=== PATIENT | male | born 1960 | race Caucasian/White ===

== ENCOUNTER → 2023-12-24 | Outpatient (CLI) | payer BC, SELFPAY ==
[2023-12-24 18:14] LABS: Pathologist Comment May follow
[2023-12-24 19:29] LABS: Synovial Fld Mononuclear WBC # 1.364 10^3/ul; Synovial Fld Mononuclear WBC % 80.4 %; Synovial Fld Polynuclear WBC # 0.332 10^3/uL; Synovial Fld Polynuclear WBC % 19.6 %
[2023-12-24 20:24] LABS: AUTO B FLUID DILUENT BKGD CT WBC <0.1 RBC <0.01 (W<.1,R<.01); CRYSTALS, BODY FLUID NO CRYSTALS SEEN; Lymph 21 %; Monocyte /Synovial Fluid 68 %; Neutrophil 11 % (0-25); Source- Body Fluid SYNOVIAL
[2023-12-24 20:25] LABS: Source / Synovial Fluid RIGHT BUTTOCK
[2023-12-24 20:27] LABS: Appearance /Synovial Fluid Cloudy (CLEAR); Color / Synovial Fluid Red (Pale Yellow); RBC /Synovial Fluid 8065 /mm3 (0)
[2023-12-25 14:16] LABS: Pathologist Review Reviewed
== END | disposition home or self-care (01) ==
PROVIDERS: Referring Provider Orthopaedic Surgery; Visit Provider Orthopaedic Surgery
DX: Z96.82 Presence of neurostimulator (principal)
CPT/HCPCS: 87070; 87075; 87205; 89050; 89051; 89060

== ENCOUNTER → 2025-02-15 | Outpatient (CLI) | payer BC, SELFPAY ==
--- NOTE | 2025-02-15 10:05 | RAD_ITS ---
PROCEDURE: CERV SPINE 2 OR 3 VIEWS 02/15/2025 REASON FOR EXAM: R/O FX CERVICAL SPONDYLOSIS TECHNIQUE: CERV SPINE 2 OR 3 VIEWS FINDINGS: No evidence acute fracture or dislocation. Moderate degenerative changes of the spine. Normal alignment. RAD/Cerv Spine 2 or 3 Views IMPRESSION: Spondylosis. Reading Location: [id number]
--- OUTSIDE RECORDS SUMMARY | 2025-02-15 19:03 | XMS RPT_ITS | CCD ---
Author Organization [facility] Care Team Providers Care Travel Agency Manager Name Role Phone UNGERER PRODUCTION SCHEDULER-VENTILATOR SPECIALIST, RADHA Primary Care Physician JESS COY DO Attending Unavailable UNGJAZZYR PRODUCTION SCHEDULER-VENTILATOR SPECIALIST, RADHA Primary Care Annamaria LEE APRN-VENTILATOR SPECIALIST, WESLEY Grider Consulting Unavaila ble JESS COY DO Attending Unavailable JESS COY DO Admitting Unavailable KATHLEEN MCCLELLAND-ROSALBA, RADHA Primary Care Jess Galeas Referring Unavailable Jess Coy Attending Unavailable Unavailable Primary Care Provider Unavailfaustina murillo LEB MERCY B Referring Unavailable LEB, MERCY B Referring Unavailable LEB, MERCY B Referring Unavailable LEB, MERCY B Attending Unavailable LEB, MERCY B Attending Unavailable RADHA DOE ASTRO TECHNICIAN Attending Unavailable RADHA DOE ASTRO TECHNICIAN Primary Care Unavailable RADHA DOE ASTRO TECHNICIAN Admitting Unavailable NAPOLEON MCGHEE DO Consulting Unavailable PROVIDER, UNKNOWN Consulting Unavailable PROVIDER, UNKNOWN Consulting Unavailable SEBASTIAN TRAORE MD Consulting Unavailable SEBASTIAN TRAORE MD Primary Care Unavailable SEBSATIAN TRAORE MD Admitting Unavailable SEBASTIAN TRAORE MD Attending Unavailable PROVIDER, UNKNOWN Consulting Unavailable PROVIDER, UNKNOWN Consulting Unavailable PROVIDER, UNKNOWN Consulting Unavailable RADHA DOE ASTRO TECHNICIAN Attending Unavailable RADHA DOE ASTRO TECHNICIAN Primary Care Unavailable RADHA DOE ASTRO TECHNICIAN Admitting Unavailable JUSTINO SIN Attending Unavailable JUSTINO SIN Primary Care Unavailable JUSTINO SIN Admitting Unavailable Scott MADSEN, Thony Horner Primary Care Provider Allergies Allergy Classification Reported Allergen(s) Allergy Type Date of Onset Reaction(s) Facility (10 sources) varenicline; Translations: [varenicline] Drug Allergy 5 Nausea/vomiting [facility] [place] (8 sources) semaglutide; Translations: [SEMAGLUTIDE] Drug Allergy Nausea/vomiting [facility] Medications Current Medications Medication Drug Class(es) Dates Sig (Normalized) Sig (Original) acetaminophen 500 mg oral tablet (6 sources) take 3 tablets by mouth twice daily acetaminophen (Tylenol Extra Strength) 500 mg tablet Take 3 tablets twice a day by oral route. Active acetaminophen 325 mg / HYDROcodone bitartrate 5 mg oral tablet (8 sources) Opioid Agonist Start: 11-12-2023 End: 11-19-2023 take 1 tablet by mouth every six hours as needed for pain Selden 325- 5 mg oral tablet Dose = 1 tab(s), Oral, q6h, PRN for pain, X 7 day(s), # 28 tab(s), 0 Refill(s), Pharmacy: [facility], Lumbar spondylosis, 180.34, cm, 11/12/23 6:41:00 EDT, Height, 82.27, kg, 11/12/23 6:41:00 EDT, Dosing Weight Start Date: 11/12/23 Stop Date: 11/19/23 Status: Ordered Start: 07-24-2023 take 1 tablet by hi th every six hours as needed for pain acetaminophen-hydrocodone 300 mg-7.5 mg oral tablet Dose = 1 tab(s), Oral, q6h, PRN for pain, # 12 tab(s), 0 Refill(s), 74.55 Start Date: 07/24/23 Status: Ordered End: 02-15-2025 take 1 tablet by mouth every eight hours as needed HYDROcodone-acetaminophen (Selden) 5-325 mg tablet Take 1 tablet by mouth every 8 hours if needed. 02/15/2025 Discontinued (Med List Cleanup) aspirin 81 mg delayed release oral tablet (7 sources) Platelet Aggregation Inhibitor, Nonsteroidal Anti-inflammatory Drug Start: 07-24-2023 aspirin 81 mg ora l delayed release tablet Dose : 81 mg = 1 tab(s), Oral, Daily, 0 Refill(s) Start Date: 07/24/23 Status: Ordered take 1 tablet by mouth once frida y aspirin 325 mg tablet Take 1 tablet (325 mg) by mouth once daily. Active 24 hr buPROPion hydrochloride 150 mg extended release oral tablet (6 sources) Aminoketone Start: 02-15-2025 End: 04-16-2025 take 1 tablet by mouth once daily in the morning buPROPion XL (Wellbutrin XL) 150 mg 24 hr tablet Indications: Major depressive disorder with single episode, in partial remission Take 1 tablet (150 mg) by mouth once daily in the morning. Do not crush, chew, or split. 30 tablet 2 02/15/2025 04/16/2025 Active End: 02-15-2025 take 1 tablet by mouth twice daily buPROPion SR (Wellbutrin SR) 150 mg 12 hr tablet TAKE ONE TABLET BY MOUTH TWICE DAILY (TO help quit smoking) 02/15/2025 Discontinued (Med List Cleanup) Capsaicin / Menthol (2 sources) Start: 09-07-2020 Salonpas Gel-Patch 2, Topical, BID, 0 Refill(s) Start Date: 09/07/20 Status: Ordered dapagliflozin 10 mg oral tablet (2 sources) Sodium-Glucose Cotransporter 2 Inhibitor Start: 07-25-2023 Farxiga 10 mg oral tablet Dose : 10 mg = 1 tab(s), Oral, qDay, # 30 tab(s), 3 Refill(s), Pharmacy: [facility], 180.3, cm, 07/25/23 15:36:00 EST, Height, kg, 07/25/23 15:36:00 EST, Dosing Weight Start Date: 07/25/23 Status: Ordered docusate sodium 50 mg oral capsule (3 sources) Start: 07-24-2023 docusate sodium (Colace) 50 mg capsule Take 1 capsule (50 mg) by mouth if needed for constipation. 07/24/2023 Active DULoxetine 60 mg delayed release oral capsule (7 sources) Serotonin and Norepinephrine Reuptake Inhibitor Start: 07-24-2023 End: 02-15-2025 Cymbalta 60 mg oral delayed release capsule Dose : 60 mg = 1 cap(s), Oral, qDay, 0 Refill(s) Start Date: 07/24/23 Status: Ordered gabapentin 600 mg oral tablet (2 sources) Anti-epileptic Agent Start: 09-07-2020 gabapentin 600 mg oral tablet Dose : 600 mg = 1 tab(s), Oral, QID, PRN Pain, TAKE ONE TABLET BY MOUTH THREE TIMES DAILY Start Date: 09/07/20 Status: Ordered glimepiride 4 mg oral tablet (1 source) Sulfonylurea Start: 01-12-2025 take 1 tablet by mouth in the morning glimepiride (Amaryl) 4 mg tablet Take 1 tablet (4 mg) by mouth early in the morning.. 01/12/2025 Active Lopressor 25mg--USE metoprolol tartrate 25 mg oral tablet (2 sources) Start: 11-05-2023 Lopressor 25mg--USE metoprolol tartrate 25 mg oral tablet Dose : 25 mg = 1 tab(s), Oral, BID, 0 Refill(s) Start Date: 11/05/23 Status: Ordered 24 hr metFORMIN hydrochloride 750 mg extended release oral tablet (8 sources) Biguanide Start: 09-07-2020 take 1 tablet by mouth twice daily for diabetes mellitus metFORMIN 750 mg oral tablet EXTENDED RELEASE TAKE ONE TABLET BY MOUTH TWICE DAILY FOR diabetes Start Date: 09/07/20 Status: Ordered olmesartan medoxomil 20 mg oral tablet (1 source) Angiotensin 2 Receptor Lesly Start: 02-15-2025 End: 08-14-2025 take 1 tablet by mouth once daily olmesartan (BENIcar) 20 mg tablet Indications: Primary hypertension Take 1 tablet (20 mg) by mouth once daily. 30 tablet 5 02/15/2025 08/14/2025 Active pregabalin 300 mg oral capsule (1 source) Start: 01-31-2025 take 1 capsule by mouth every twelve hours pregabalin (Lyrica) 300 mg capsule Take 1 capsule (300 mg) by mouth every 12 hours. 01/31/2025 Active rosuvastatin calcium 40 mg oral tablet (7 sources) HMG-CoA Reductase Inhibitor Start: 09-07-2020 take 1 tablet by mouth once daily rosuvastatin 40 mg oral tablet TAKE ONE TABLET BY MOUTH EVERY night Start Date: 09/07/20 Status: Ordered rosuvastatin (Cr estor) 10 mg tablet Active Completed/Discontinued Medications Medication Drug Class(es) Dates Sig (Normalized) Sig (Original) 0.25 MG, 0.5 MG Dose 3 ML semaglutide 0.68 MG/ML Pen Injector [Ozempic] (2 sources) Start: 07-24-2023 inject 0.5 mg by subcutaneous injection every week Ozempic 2 mg/3 mL (0.25 mg or 0.5 mg dose) subcutaneous solution Dose : 0.25 mg =, Subcutaneous, qWeek, 0 Refill(s) Start Date: 07/24/23 Status: Ordered glipiZIDE er 10 mg 24 hr extended release oral tablet (7 sources) Sulfonylurea Start: 09-24-2024 End: 02-15-2025 take 1 tablet by mouth once daily in the morning for diabetes mellitus glipiZIDE XL (Glucotrol XL) 10 mg 24 hr tablet TAKE ONE TABLET BY MOUTH DAILY IN THE MORNING FOR diabetes 09/24/2024 02/15/2025 Discontinued (Med List Cleanup) Start: 07-24-2023 glipiZIDE 10 m g oral tablet Dose : 10 mg = 1 tab(s), Oral, qDay, # 30 tab(s), 0 Refill(s) Start Date: 07/24/23 Status: Ordered ketorolac tromethamine 10 mg oral tablet (6 sources) Nonsteroidal Anti-inflammatory Drug, Cyclooxygenase Inhibitor Start: 10-06-2024 End: 02-15-2025 take 1 tablet by mouth every eight hours as needed ketorolac (Toradol) 10 mg tablet Take 1 tablet (10 mg) by mouth every 8 hours if needed for pain. 10/06/2024 02/15/2025 Discontinued (Med List Cleanup) metoprolol tartrate 25 mg oral tablet (8 sources) beta-Adrenergic Lesly Start: 11-13-2023 End: 11-13-2023 take 1 tablet by mouth in the morning Metoprolol Tartrate 25 mg oral tablet Start: 11/13/23 8:00:00 AM EDT, Dose = 25 mg, = 1 tab(s), Oral, Hold if SBP (mmHg) Start Date: 11/13/23 Stop Date: 11/13/23 Status: Completed Start: 11-12-2023 End: 11-12-2023 take 1 tablet by mouth in the evening Metoprolol Tartrate 25 mg oral tablet Start: 11/12/23 5:00:00 PM EDT, Dose = 25 mg, = 1 tab(s), Oral, Hold if SBP (mmHg) Start Date: 11/12/23 Stop Date: 11/12/23 Status: Completed take 1 tablet by [facility] twice daily metoprolol tartrate (Lopressor) 25 mg tablet Take 1 tablet (25 mg) by mouth 2 times a day. Active semaglutide 3 mg oral tablet (3 sources) Start: 01-28-2025 End: 02-15-2025 take 1 tablet by mouth in the morning Rybelsus 3 mg tablet Take 1 tablet (3 mg) by mouth early in the morning.. 30 tablet 2 02/15/2025 02/15/2025 Discontinued tiZANidine 4 mg oral tablet (6 sources) Central alpha-2 Adrenergic Agonist End: 02-15-2025 tiZANidine (Zanaflex) 4 mg tablet TAKE 1 AND 1/2 TABLETS BY MOUTH EVERY 8 HOURS NEEDED FOR PAIN 02/15/2025 Discontinued (Med List Cleanup) 1 ml triamcinolone acetonide 40 mg/ml injection (2 sources) Corticosteroid Start: 10-29-2024 End: 10-29-2024 triamcinolone acetonide (Kenalog-40) injection 2.5 mg Start: 10-29-2024 End: 10-29-2024 2.5 mg, intra-articular, Onc e PRN Procedure, Starting on Fri10/29/24 at 0937, For 1 dose Problems Active Problems Problem Classification Problem Date Documented Date Episodic/Chronic Complication of device; implant or graft (2 sources) Arteriosclerosis of coronary artery bypass graft; Translations: [Atherosclerosis of coronary artery bypass graft(s) without angina pectoris] 02-15-2025 Chronic Diabetes mellitus with complications (3 sources) Type 2 diabetes mellitus with hyperglycemia; Translations: [Hyperglycemia due to type 2 diabetes mellitus] Onset: 01-26-2025 02-15-2025 Chronic Diabetes mellitus without complication (3 sources) Diabetes mellitus; Translations: [Type 2 diabetes mellitus without complication] Onset: 11-12-2023 07-28-2023 Chronic Disorders of lipid metabolism (2 sources) Hyperlipidemia 07-28-2023 Chronic Essential hypertension (2 sources) Essential hypertension; Translations: [Essential (primary) hypertension] Onset: 11-12-2023 Chronic Mood disorders (1 source) Major depression single episode, in partial remission; Translations: [Major depressive disorder, single episode, in partial remission] 02-15-2025 Chronic Other nutritional; endocrine; and metabolic disorders (1 source) Hyperuricemia without signs of inflammatory arthritis and tophaceous disease; Translations: [Hyperuricemia without signs of inflammatory arthritis and tophaceous disease] Onset: 01-26-2025 Episodic Gabbi-; endo-; and myocarditis; cardiomyopathy (except that caused by tuberculosis or sexually transmitted disease) (3 sources) Cardiomyopathy; Translations: [Cardiomyopathy, unspecified] Onset: 11-12-2023 07-28-2023 Chronic Screening and history of mental health and substance abuse codes (2 sources) Tobacco use and exposure - finding 07-28-2023 Chronic Substance-related disorders (3 sources) Cigarette smoker ; Translations: [Nicotine dependence] 02-15-2025 Chronic Unclassified (1 source) Presence of neurostimulator; Translations: [Presence of neurostimulator] Onset: 01-02-2024 Unclassified (4 sources) Right shoulder pain, unspecified chronicity 10-29-2024 Past or Other Problems Problem Classification Problem Date Documented Da te Episodic/Chronic Mood disorders (1 source) Mood disorders Onset: 02-15-2025 02-15-2025 Other non-traumatic joint disorders (10 sources) Pain in right shoulder; Translations: [Pain in joint, shoulder region] Onset: 10-29-2024 10-29-2024 Episodic Unclassified (1 source) Onset: 02-15-2025 02-15-2025 Results Test Name Value Interpretation Reference Range Facility C-REACTIVE PROTEINon 025 CRP 2.31 mg/dl High 0.00 - 0.90 [facility] Comment on above: Performed By: #### 2 [id number] #### [facility],[address] [place], [place] [id number] CBC + DIFFon 01-26-2025 Baso # 0.06 x10EE3/UL Normal 0.00 - 0.10 [facility] Comment on above: Performed By: #### 2 [id number] #### [facility],[address] [place] [address] Basophils/100 WBC (Bld) 0.4 % Normal 0.0 - 2.0 [facility] Comment on above: Performed By: #### 2 [id number] #### [facility],[address] [place] [address] CBC + DIFF Normal [facility] Comment on above: Result Comment: CBC- COMPLETE BLOOD COUNT Performed By: #### 2 [id number] #### [facility],[address] [place] [address] 74862 EO # 0.13 x10EE3/UL Normal 0.00 - 0.50 [facility] Comment on above: Performed By: #### 2 [id number] #### [facility],[address] [place] [address] Eosinophils/100 WBC (Bld) 0.8 % Normal 0.0 - 7.0 [facility] Comment on above: Performed By: #### 2 [id number] #### [facility],[address] [place] [address] Erythrocyte distribution width (RBC) [Ratio] 12.8 % Normal 12.0 - 15.6 [facility] Comment on above: Performed By: #### 2 [id number] #### [facility],[address] [place] [address] Hematocrit (Bld) [Volume fraction] 41.9 % Normal 40.0 - 52.0 [facility] Comment on above: Performed By: #### 2 [id number] #### [facility],[address] [place], [place] [id number] Hemoglobin (Bld) [Mass/Vol] 14.4 g/dL Normal 13.0 - 17.5 [facility] Comment on above: Performed By: #### 2 62989 #### [facility],[address] [place] [address] 98383 Lymph # 2.97 x10EE3/UL High 0.80 - 2.80 [facility] Comment on above: Performed By: #### 2 37187 #### [facility],[address] [place], [place] [id number] Lymphocytes/100 WBC (Bld) 19.0 % Low 20.0 - 45.0 [facility] Comment on above: Performed By: #### 2 [id number] #### [facility],[address] [place] [address] MANUAL DIFF N/A Normal [facility] Comment on above: Performed By: #### 2 [id number] #### [facility],[address] [place] [address] MCH (RBC) [Entitic mass] 31 pg Normal 27 - 33 [facility] Comment on above: Performed By: #### 2 13104 #### [facility],[address] [place] [address] MCHC 34 X10 3 Normal 32 - 36 [facility] Comment on above: Performed By: #### 2 45124 #### [facility],[address] [place] [address] MCV (RBC) [Entitic vol] 90 fL Normal 81 - 98 [facility] Comment on above: Performed By: #### 2 88463 #### [facility],[address] [place] [address] [place] # 1.33 x10EE3/UL High 0.20 - 1.00 [facility] Comment on above: Performed By: #### 2 79445 #### [facility],[address] [place] [address] MONOS % 8.5 % Normal 0.0 - 10.0 [facility] Comment on above: Performed By: #### 2 [id number] #### [facility],[address] [place] [address] Morphology Shamir (Bld) [Interp] N/A Normal [facility] Comment on above: Performed By: #### 2 [id number] #### [facility],[address] [place] [address] Neut # 11.13 x10EE3/UL High 1.50 - 7.10 [facility] Comment on above: Performed By: #### 2 75537 #### [facility],[address] [place] [address] 22906 Neutrophils/100 WBC (Bld) 71.3 % Normal 46.0 - 76.0 [facility] Comment on above: Performed By: #### 2 32931 #### [facility],[address] [place] [address] 99155 PLATELET 240 x10EE3/UL Normal 150 - 450 [facility] Comment on above: Performed By: #### 2 [id number] #### [facility],[address] [place] [address] 19443 Platelet mean volume (Bld) [Entitic vol] 8.9 fL Normal 6.4 - 10.5 [facility] Comment on above: Result Comment: AUTO MATED DIFFERENTIAL Performed By: #### 2 60257 #### [facility],[address] [place] [address] 09224 RBC 4.64 x 10EE6/UL Normal 4.50 - 6.00 [facility] Comment on above: Performed By: #### 2 60471 #### [facility],[address] [place] [address] 05441 WBC 15.6 x 10EE3/UL High 4.5 - 10.8 [facility] Comment on above: Performed By: #### 2 04486 #### [facility],[address] [place] [address] 74346 CMP with eGFRon 01-26-2025 AGE 64 years Normal [facility] Comment on above: Performed By: #### 2 47368 #### [facility],[address] [place] [address] 29199 Albumin [Mass/Vol] 3.5 g/dL Normal 3.4 - 5.0 [facility] Comment on above: Performed By: #### 2 65745 #### [facility],[address] [place] [address] 47311 Albumin/Globulin [Mass ratio] 0.9 {ratio} Normal 0.9 - 1.6 [facility] Comment on above: Performed By: #### 2 55643 #### [facility],[address] [place] [address] 17484 ALK PHOS 71 U/L Normal 46 - 116 [facility] Comment on above: Performed By: #### 2 55882 #### [facility],[address] [place] [address] 39558 ALT [Catalytic activity/Vol] 28 U/L Normal 16 - 63 [facility] Comment on above: Performed By: #### 2 48630 #### [facility],[address] [place] [address] 52266 Anion gap [Moles/Vol] 12 mmol/L Normal 10 - 20 [facility] Comment on above: Performed By: #### 2 92332 #### [facility],[address] [place] [address] 49750 AST [Catalytic activity/Vol] 18 U/L Normal 15 - 37 [facility] Comment on above: Performed By: #### 2 80016 #### [facility],[address] [place] [address] 77921 B/C RATIO 24 ratio Normal 0 - 30 [facility] Comment on above: Performed By: #### 2 86190 #### [facility],[address] [place] [address] 25389 Bilirubin [Mass/Vol] 0.4 mg/dL Normal 0.2 - 1.0 [facility] Comment on above: Performed By: #### 2 25784 #### [facility],[address] [place] [address] 96838 Calcium [Mass/Vol] 8.6 mg/dL Normal 8.5 - 10.1 [facility] Comment on above: Performed By: #### 2 12231 #### [facility],[address] [place] [address] 96214 Chloride [Moles/Vol] 100 mmol/L Normal 98 - 107 [facility] Comment on above: Performed By: #### 2 70867 #### [facility],[address] [place] [address] 60651 CMP with eGFR Normal [facility] Comment on above: Result Comment: COMP REHENSIVE METABOLIC PANEL Performed By: #### 2 15238 #### [facility],[address] [place] [address] 08947 CO2 [Moles/Vol] 25.5 mmol/L Normal 21.0 - 32.0 [facility] Comment on above: Performed By: #### 2 06097 #### [facility],[address] [place] [address] 62891 Creatinine [Mass/Vol] 0.88 mg/dL Normal 0.70 - 1.30 [facility] Comment on above: Performed By: #### 2 97436 #### [facility],[address] [place] [address] 13100 GFR/1.73 sq M.predicted among non-blacks MDRD (S/P/Bld) [Vol rate/Area] mL/min/{1.73_m2} Normal 60 - 999 [facility] Comment on above: Performed By: #### 2 94490 #### [facility],[address] [place] [address] 23156 Result Comment: ACCO RDING TO THE NATIONAL KIDNEY DISEASE EDUCATION PROGRAM(NKDE), A NORMAL eGFR IS A VALUE GREATER THAN OR EQUAL TO 60 ML/MIN/1.73 SQ METERS. CHRONIC KIDNEY DISEASE: <60mL/MIN/1.73 SQ METERS KIDNEY FAILURE: <15mL/MIN/1.73 SQ METERS THIS TEST SHOULD ONLY BE USED FOR PATIENTS 18 YEARS OF AGE AND OLDER. Globulin (S) [Mass/Vol] 4.1 g/dL High 1.5 - 3.8 [facility] Comment on above: Performed By: #### 2 [id number] #### [facility],[address] [place] [address] 72021 Glucose [Mass/Vol] 169 mg/dL High 74 - 106 [facility] Comment on above: Performed By: #### 2 55200 #### [facility],[address] [place], [place] [id number] Potassium [Moles/Vol] 3.8 mmol/L Normal 3.5 - 5.1 [facility] Comment on above: Performed By: #### 2 22167 #### [facility],[address] [place] [address] Protein [Mass/Vol] 7.6 g/dL Normal 6.4 - 8.2 [facility] Comment on above: Performed By: #### 2 30542 #### [facility],[address] [place] [address] Sodium [Moles/Vol] 134 mmol/L Low 136 - 145 [facility] Comment on above: Performed By: #### 2 23679 #### [facility],[address] [place] [address] Urea nitrogen [Mass/Vol] 21 mg/dL High 7 - 18 [facility] Comment on above: Performed By: #### 2 28636 #### [place] [address] HEMOGLOBIN A1C (POM)on 01-26 Glucose [Mass/Vol] 185.8 mg/dL High 0.0 - 0.0 [facility] Comment on above: Result Comment: BLDo HEMOGLOBIN A1C REFERENCE RANGESBLDo Suggested Diagnosis HbA1c(%) HbA1C (mmol/mol Diabetic >/=6.5 >/=48 Prediabetes 5.7 - 6.4 39 - 47 Normal <5.7 <39 Performed By: #### 2 [id number] #### [facility],[address] [place], [place] [id number] HbA1c (Bld) [Mass fraction] 8.1 % High 0.0 - 6.5 [facility] Comment on above: Performed By: #### 2 65409 #### [facility],[address] [place] [address] LIPID PROFILEon 01-26-2025 Cholesterol [Mass/Vol] 87 mg/dL Normal 0 - 240 [facility] Comment on above: Performed By: #### 2 41076 #### [facility],[address] [place] [address] 42195 Cholesterol in HDL [Mass/Vol] 29 mg/dL Low 40 - 60 [facility] Comment on above: Performed By: #### 2 49659 #### [facility],[address] [place] [address] 75444 Cholesterol in LDL [Mass/Vol] 14 mg/dL Normal 0 - 129 [facility] Comment on above: Performed By: #### 2 34557 #### [facility],[address] [place] [address] 25694 Cholesterol.total/Cho lesterol in HDL [Mass ratio] 3.0 {ratio} Normal 0.0 - 5.0 [facility] Comment on above: Performed By: #### 2 50849 #### [facility],[address] [place] [address] [id number] Lipid 1996 panel Normal [facility] Comment on above: Result Comment: LIPI D PROFILE Performed By: #### 2 [id number] #### [facility],[address] [place] [address] 39040 Triglyceride [Mass/Vol] 219 mg/dL High 0 - 150 [facility] Comment on above: Performed By: #### 2 [id number] #### [facility],[address] [place] [address] 15430 TSHon 01-26-2025 TSH Qn 0.91 m[IU]/L Normal 0.35 - 3.74 [facility] Comment on above: Performed By: #### 2 84625 #### [facility],[address] [place] [address] 80193 URIC ACIDon 01-26-2025 Urate [Mass/Vol] 3.8 mg/dL Normal 3.5 - 7.2 [facility] Comment on above: Performed By: #### 2 28271 #### [facility],[address] [place] [address] 75428 URINALYSISon 01-26-2025 Bilirubin Ql (U) Negative Normal NORMAL: NEGATIVE [facility] Comment on above: Performed By: #### 2 45357 #### [facility],[address] [place] [address] 85371 Clarity (U) clear Normal NORMAL: CLEAR [facility] Comment on above: Performed By: #### 2 26034 #### [facility],[address] [place] [address] 61634 Color (U) yellow Normal NORMAL: YELLOW [facility] Comment on above: Performed By: #### 2 51159 #### [facility],[address] [place] [address] 73540 Glucose Ql (U) 50 Abnormal NORMAL: NORMAL [facility] Comment on above: Performed By: #### 2 29160 #### [facility],[address] [place] [address] 14710 Hemoglobin Ql (U) Negative Normal NORMAL: NEGATIVE [facility] Comment on above: Performed By: #### 2 00137 #### [facility],[address] [place] [address] 04049 Ketone Negative Normal NORMAL: NEGATIVE [facility] Comment on above: Performed By: #### 2 64461 #### [facility],[address] [place] [address] 78510 Leukocytes Negative Normal NORMAL: NEGATIVE [facility] Comment on above: Performed By: #### 2 42897 #### [facility],[address] [place] [address] 35653 Nitrite Ql (U) Negative Normal NORMAL: NEGATIVE [facility] Comment on above: Performed By: #### 2 89919 #### [facility],[address] [place] [address] 77216 pH (U) 6 [pH] Normal NORMAL: 5.0-8.0 [facility] Comment on above: Performed By: #### 2 19753 #### [facility],[address] [place] [address] 04061 Protein Ql (U) 30 Abnormal NORMAL: NEGATIVE [facility] Comment on above: Performed By: #### 2 93783 #### [facility],[address] [place] [address] Sp Ponce 1.010 Normal NORMAL: 1.010-1.030 [facility] Comment on above: Performed By: #### 2 66938 #### [facility],[address] [place] [address] Specimen Type R Normal [facility] Comment on above: Performed By: #### 2 42110 #### [facility],[address] [place] [address] Urinalysis dipstick W Reflex Microscopic panel (U) NOT INDICATED Normal [facility] Comment on above: Performed By: #### 2 20797 #### [facility],[address] [place] [address] Urobilinog 1 Abnormal NORMAL: NORMAL [facility] Comment on above: Performed By: #### 2 80166 #### [facility],[address] [place], [place] [id number] URINE MICROALBUMIN W/CREATIN INE, RANDOMon 01-26-2025 CREATININE UR 112.16 mg/dl Normal [facility] Comment on above: Performed By: #### 2 72838 #### [facility],[address] [place], [place] [id number] MICROALBUMIN UR 8.3 mg/dL Normal 0.1 - 25.1 [facility] Comment on above: Performed By: #### 2 99895 #### [facility],[address] [place], [place] [id number] UACR 74 mg/g Normal [facility] Comment on above: Performed By: #### 2 30160 #### [facility],[address] [place] [address] 85059 POINT OF CARE ULTRASOUND NO CHARGEon 12-09-2024 POINT OF CARE ULTRASOUND NO CHARGE These images are not reportable by radiology and will not be interpreted by Radiologists. Normal [facility] US Abdomenon 12-09-2024 These images are not reportable by radiology and will not be interpreted by Radiologists. IMAGING Study Interpretation of outs suzanne studyon 11-01-2024 Outside images for comparison or treatment purposes, not interpreted by Radiologists. IMAGING XR TRANSFER OF OUTSIDE FILMS on 11-01-2024 XR TRANSFER OF OUTSIDE FILMS Outside images for comparison or treatment purposes, not interpreted by Radiologists. Normal [facility] L Inj/Asp: R subacromial bur saon 10-29-2024 Mercy Echols MD 10/29/2024 9:38 AM L Inj/Asp: R subacromial bursa on 10/29/2024 9:37 AM Indications: pain Details: ultrasound-guided anterior approach Medications: 2.5 mg triamcinolone acetonide 40 mg/mL Procedure, treatment alternatives, risks and benefits explained, specific risks discussed. Immediately prior to procedure a time out was called to verify the correct patient, procedure, equipment, client support analyst and site/side marked as required. Patient was prepped and draped in the usual sterile fashion. [facility] Work Phone: [facility] Work Phone: POINT OF CARE ULTRASOUND NO CHARGEon 10-29-2024 POINT OF CARE ULTRASOUND NO CHARGE These images are not reportable by radiology and will not be interpreted by Radiologists. Normal [facility] US Abdomenon 10-29-2024 These images are not reportable by radiology and will not be interpreted by Radiologists. IMAGING ED MED ADMINISTRATION DETAIL on 10-06-2024 ED MED ADMINISTRATION DETAIL Inspector Metal Can Medication Administration Record [address] [place] [address] [id number] 10/05/2024 Patient: MARILYN ROYAL Sex: Male : 1960 Age: 63y MEASUREMENTS: Wt: 87.1 kg, Ht/Oneil: 71.0 in, BMI: 26.78 ALLERGIES: No known drug allergies Medication Ordered Medication Administration Date/Time 1 of Normal [facility] ED NURSES CLINICAL NOTEon ED NURSES CLINICAL NOTE Nurse Narrative Nurse Clinical Narrative [facility] [address] [place] [address] [id number] 10/05/2024 Patient: MARILYN ROYAL Sex: Male : 1960 Age: 63y Primary Insurance: [employer] OUTPATIENT Policy Number: [id number] Group Number: [id number] Subscriber: Other Disposition: Discharge to Home Disposition Decision Time: 22:27 10/05/2024 Departure Time: 22:32 10/05/2024 TRIAGE Arrived by private vehicle. Primary physician (Oliver). Triage time: 20:42 10/05/2024. Acuity: LEVEL 3. Chief Complaint: RIGHT UPPER EXTREMITY PAIN, NUMBNESS and TINGLING. Location of symptoms- right shoulder and right arm. No injury occurred. Onset. (x1 week). It is described as radiating to the right neck, back, upper extremity and shoulder. -- 20:51 10/05/24 EDT Hannah Oliver R.N. 20:42 10/05/24. SEPSIS SCREEN: NEGATIVE. SIRS criteria negative. -- 20:51 10/05/24 EDT Hannah Oliver R.N. 20:49 10/05/24. BP: 152/95 MAP: 114. HR: 74. RR: 16. O2 saturation: 92% on room air. Temperature: 97.6 F. Pain level now 3/10. Describes the pain as aching. (Right shoulder). -- 20:51 10/05/24 EDT Hannah Oliver R.N. Measurements: 20:49 10/05/24 Wt: 87.1 kg, Ht/Oneil: 71.0 in, BMI: 26.78 -- 20:49 10/05/24 EDT Hannah Oliver R.N. Medications: 1 of 4 Nurse Narrative rosuvastatin 40 mg tablet -- 20:54 10/05/24 EDT Hannah Oliver R.N.Updated through eRx -- 20:57 10/05/24 EDT Hannah Oliver R.N. pregabalin 300 mg capsule -- 20:54 10/05/24 EDRory Oliver R.N.Updated through eRx -- 20:57 10/05/24 EDT Hannah Oliver R.N. metoprolol tartrate 25 mg tablet -- 20:54 10/05/24 EDT Hannah Oliver R.N.Updated through eRx -- 20:57 10/05/24 EDT Hannah Oliver R.N. metformin ER 750 mg tablet,extended release 24 hr -- 20:54 10/05/24 EDRory Oliver R.N.Updated through eRx -- 20:57 10/05/24 EDT Hannah Oliver R.N. glipizide ER 10 mg tablet, extended release 24 hr -- 20:54 10/05/24 EDRroy Oliver R.N.Updated through eRx -- 20:57 10/05/24 EDRory Oliver R.N. duloxetine 60 mg capsule,delayed release -- 20:54 10/05/24 EDRory Oliver R.N.Updated through eRx -- 20:57 10/05/24 MACIE Oliver R.N. aspirin 81 mg chewable tablet: 1 tablet once a day. -- 20:57 10/05/24 MACIE Oliver R.N. rosuvastatin 40 mg tablet: TAKE ONE TABLET BY MOUTH EVERY night -- 20:57 10/05/24 MACIE Oliver R.N. pregabalin 300 mg capsule: TAKE ONE CAPSULE BY MOUTH TWICE DAILY -- 20:57 10/05/24 MACIE Oliver R.N. metoprolol tartrate 25 mg tablet: TAKE ONE TABLET BY MOUTH TWICE DAILY -- 20:57 10/05/24 MACIE Oliver R.N. metformin ER 750 mg tablet,extended release 24 hr: TAKE ONE TABLET BY MOUTH TWICE DAILY -- 20:57 10/05/24 MACIE Oliver R.N. glipizide ER 10 mg tablet, extended release 24 hr: TAKE ONE TABLET BY MOUTH DAILY IN THE MORNING FOR diabetes -- 20:57 10/05/24 EDT Hannah Oliver R.N. duloxetine 60 mg capsule,delayed release: TAKE ONE CAPSULE BY MOUTH DAILY -- 20:57 10/05/24 YAMILETHT Hannah Oliver R.N. Allergies: no known drug allergies -- 20:44 10/05/24 YAMILETHT Hannah Oliver R.N. Problems: Diabetes Mellitus -- 20:44 10/05/24 EDT Hannah Oliver R.N. Myocardial Infarction -- 20:45 10/05/24 YAMILETHT Hannah Oliver R.N. Hypercholesterolemi a -- 20:46 10/05/24 YAMILETHT Hannah Oliver R.N. ADDITIONAL SURGERIES: Coronary Artery Bypass Graft: Performed 2014. Triple -- 20:45 10/05/24 MACIE Oliver R.N. 2 of 4 Nurse Narrative Eye Surgery -- 20:45 10/05/24 MACIE Oliver R.N. Back Surgery. Right Stimulator -- 20:47 10/05/24 YAMILETHT Hannah Oliver R.N. Tonsillectomy -- 20:47 10/05/24 YAMILETHT Hannah Oliver R.N. Adenoidectomy -- 20:47 10/05/24 YAMILETHT Hannah Oliver R.N. History 20:42 10/05/24. SOCIAL HX: Heavy tobacco smoker (cigarette)- 1-2 packs per day. No alcohol use or drug use. The patient has not traveled outside the [place] Infectious disease exposure: No infectious disease exposure. ABUSE ASSESSMENT: The patient answered yes to the question(s) Do you feel safe in your home? and no to the question(s) Are you afraid to go home?. SELF HARM ASSESSMENT: Self harm assessment was performed. The patient answered no to the question(s) Have you recently felt down, depressed, or hopeless? and Do you have thoughts of harming or killing yourself?. FALL RISK ASSESSMENT: Fall risk assessment completed. No risk factors identified. -- 20:51 10/05/24 MACIE Oliver R.N. Interventions 20:42 10/05/24. Advanced care plan discussed with patient. Patient does not have advanced directive. -- 20:51 10/05/24 EDT Hannah Oliver R.N. PHYSICAL ASSESSMENT 21:59 10/05/24. Ambulatory to room. GENERAL / NEURO / PSYCH: Oriented X 4. Alert. Appears in no acute distress. ( right shoulder pain starting 1 week ago with no known cause. states 3/10 at this time, can get worse to 10/10, states it feels like (more content not included)... Normal [facility] ED ORDER SHEET (CPOE ONLY)on 10-06-2024 ED ORDER SHEET (CPOE ONLY) Order Sheet Order Sheet [address] [address] [id number] 10/05/2024 Patient: MARILYN ROYAL Sex: Male : 1960 Age: 63y MEASUREMENTS: Wt: 87.1 kg, Ht/Oneil: 71.0 in, BMI: 26.78 ALLERGIES: No known drug allergies MEDICATION/IV/DRIP/ FLUID ORDERS Order Description Priority Entered Acknowledged Completed LAB ORDERS Order Description Priority Entered Acknowledged Collected Completed DIAGNOSTIC STUDY ORDERS Order Description Priority Entered Acknowledged Completed Shoulder R Complete Stat Stat 21:24 10/05/2024 21:36 22:09 Lul Chi D.O. 10/05/2024 10/05/2024 Elsie Laguerre R.N. Reason for Study: Pain STAFF ORDERS Order Description Priority Entered Acknowledged Collected Completed [Electronically signed by Lul Chi D.O. (10/06/2024 00:29 EDT)] 1 of 1 Normal [facility] ED PHYSICIAN CLINICAL REPORT on 10-06-2024 ED PHYSICIAN CLINICAL REPORT Narrative Physician Clinical Narrative [address] [address] [id number] 10/05/2024 Patient: MARILYN ROYAL Sex: Male : 1960 Age: 63y Primary Insurance: [employer] OUTPATIENT Policy Number: [id number] Group Number: [id number] Subscriber: Other Disposition: Discharge to Home Disposition Decision Time: 22:27 10/05/2024 Departure Time: 22:32 10/05/2024 Measurements Wt: 87.1 kg, Ht/Oneil: 71.0 in, BMI: 26.78 Initial Vital Sign Measured Time BP MAP HR RR O2Sat ETCO2 Temp Pain GCS RTS 20:49 10/05/2024 152/95 114 74 16 92% RA 97.6 F 3 Time Seen: 21:03 10/05/2024. Arrived- By private vehicle. Historian- patient. HISTORY OF PRESENT ILLNESS Chief Complaint: UPPER EXTREMITY PAIN and ; PROBLEM IN THE RIGHT SHOULDER. Severity is described as being moderate in degree. The quality is noted to be sharp. No radiation. This started 1 weeks ago and is still present. Symptoms located in the area of the right shoulder. No chest pain, difficulty breathing, swelling, sensory loss or motor loss. No repetitive hand use at work. The patient has not had redness. Patient notes the possibility of an injury. Similar symptoms previously. None. Recent medical care: Not recently seen/assessed. 1 of 5 Narrative REVIEW OF SYSTEMS RESPIRATORY: No cough. THROAT: No sore throat. MUSCULOSKELETAL: No neck pain. CONSTITUTIONAL: No fever or chills. SKIN: No skin rash. ENDO/HEME/LYMPH: No enlarged lymph nodes. PSYCHIATRIC: No depression. GI: No abdominal pain, nausea, vomiting or diarrhea. : No difficulty with urination, urinary frequency or hematuria. NEUROLOGICAL: No headache. PAST HISTORY See nurses notes. Diabetes Mellitus Hypercholesterolemi a Myocardial Infarction Surgeries: Adenoidectomy Back Surgery: Body Site Right Stimulator Coronary Artery Bypass Graft: [2015], Body Site Triple Eye Surgery Tonsillectomy Medications: aspirin 81 mg chewable tablet: 1 tablet once a day. duloxetine 60 mg capsule,delayed release: TAKE ONE CAPSULE BY MOUTH DAILY glipizide ER 10 mg tablet, extended release 24 hr: TAKE ONE TABLET BY MOUTH DAILY IN THE MORNING FOR diabetes metformin ER 750 mg tablet,extended release 24 hr: TAKE ONE TABLET BY MOUTH TWICE DAILY metoprolol tartrate 25 mg tablet: TAKE ONE TABLET BY MOUTH TWICE DAILY pregabalin 300 mg capsule: TAKE ONE CAPSULE BY MOUTH TWICE DAILY rosuvastatin 40 mg tablet: TAKE ONE TABLET BY MOUTH EVERY night Allergies: no known drug allergies SOCIAL HISTORY Heavy tobacco smoker- 1-2 packs per day. No alcohol use or drug use. 2 of 5 Narrative ADDITIONAL NOTES The nursing notes have been reviewed. PHYSICAL EXAM Appearance: Alert. Oriented X3. No acute distress. Eyes: Pupils equal, round and reactive to light. ENT: Nose normal. Pharynx normal. Neck: Normal inspection. Neck supple. CVS: Normal heart rate and rhythm. Heart sounds normal. Respiratory: No respiratory distress. Painless inspiration. Breath sounds normal. Abdomen: Soft and nontender. No organomegaly. Back: No tenderness. Skin: Skin intact. Skin warm and dry. Extremities: Right shoulder: moderate tenderness. Limited ROM (diminished abduction and adduction). Neurovascular intact distally. No erythema, swelling, laceration, abrasion or ecchymosis. No puncture wound, foreign body, deformity or open wound communicating with joint space. No avulsion. No joint effusion. Extremities otherwise negative. Neuro: Oriented X 3. No motor deficit. No sensory deficit. LABS, X-RAYS, AND EKG X-Rays: (Old right clavicle fracture. No acute fracture/dislocatio n by my reading.). Right shoulder negative. The X-rays were independently viewed by me. PROGRESS AND PROCEDURES MEDICAL DECISION MAKING: Ordered tests include x-rays and a right shoulder. The patient has been stable. (63-year-old white male complaining of right shoulder pain off and on for the past 1 week. 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 He states last night the pain was bad it was about a 9 or 10 on a severity scale 1-10. Described as sharp in nature. Somewhat worse with movement. Two this morning it was much less pain but as he was doing things throughout the day the pain seemed to get worse so he presents here for an x-ray of his right shoulder. He does have a history of coronary artery disease and he has had a previous coronary artery bypass graft but he states this is not feel anything like his heart pain. He has denied any chest pain or shortness of breath. He states the right shoulder pain is worse with movement. Is scheduled to see Dr. Traore for the 1st time on November 06 Narrative 8th. Used to see Dr. Mcghee and Radha Doe at [facility] (more content not included)... Normal [facility] ED SUPER BILLon 10-06-2024 ED SUPER BILL [address] [address] [id number] 10/05/2024 Patient: MARILYN ROYAL Sex: Male : 1960 Age: 63y Item Professional Category Description Facility Code Code Quantity Fee Total Nurse/E/M EMERGENCY 548602 1 $0.00 $0.00 DEPARTMENT VISIT MODERATE SEVERITY (86127-62) Grand Total $0.00 Providers Lul Chi D.O. Chief Complaint UPPER EXTREMITY PAIN and ; PROBLEM IN THE RIGHT SHOULDER. Principal Diagnosis Sprain of the right rotator cuff. ICD-10 Codes 1 of 2 [facility] S43.421A: Sprain of right rotator cuff capsule, initial encounter 2 of 2 [facility] ED VISIT SUMMARYon ED VISIT SUMMARY Visit Overview Visit Overview [address] [address] [id number] 10/05/2024 Patient: MARILYN ROYAL Sex: Male : 1960 Age: 63y 10/06/2024 12:29 AM EDT ED Arrival:18:04 10/05/2024 EDT Status: Recent Travel:no Language:eng Adv Directive:No Isolation Status: Ethnicity:N Fall Risk:no risk Infectious Disease Exposure:no Measurements:5'11 / 180.3 Self-Harm Status:risk Sepsis Screen:negative cm 192.0 lb / 87.1 kg Chief Complaint:right shoulder and right arm; RIGHT UPPER EXTREMITY NUMBNESS; RIGHT UPPER EXTREMITY PAIN; RIGHT UPPER EXTREMITY TINGLING; (Omran); (x1 week) ALLERGIES No Known Drug Allergies HOME MEDICATIONS aspirin 81 mg chewable tablet: 1 tablet once a day. duloxetine 60 mg capsule,delayed release: TAKE ONE CAPSULE BY MOUTH DAILY 1 of 3 Visit Overview glipizide ER 10 mg tablet, extended release 24 hr: TAKE ONE TABLET BY MOUTH DAILY IN THE MORNING FOR diabetes metformin ER 750 mg tablet,extended release 24 hr: TAKE ONE TABLET BY MOUTH TWICE DAILY metoprolol tartrate 25 mg tablet: TAKE ONE TABLET BY MOUTH TWICE DAILY pregabalin 300 mg capsule: TAKE ONE CAPSULE BY MOUTH TWICE DAILY rosuvastatin 40 mg tablet: TAKE ONE TABLET BY MOUTH EVERY night PAST MEDICAL HISTORY / PROBLEMS Diabetes Mellitus Hypercholesterolemi a Myocardial Infarction See nurses notes PAST SURGICAL HISTORY Adenoidectomy Back Surgery. Right Stimulator Coronary Artery Bypass Graft: Performed 2014. Triple Eye Surgery Tonsillectomy SOCIAL HISTORY Smoking status: Yes Alcohol use: No Drug use: No ED COURSE MEDICATIONS GIVEN IN EMERGENCY DEPARTMENT IV SITE INFORMATION INTAKE OUTPUT REASSESMENT (most recent) 2 of 3 Visit Overview 21:59 10/05/24. Ambulatory to room. GENERAL / NEURO / PSYCH: Oriented X 4. Alert. Appears in no acute distress. ( right shoulder pain starting 1 week ago with no known cause. states 3/10 at this time, can get worse to 10/10, states it feels like something torn or pinched.). EXTREMITIES: Right scapula area: tenderness. Extremities exhibit normal ROM. Neuro-vascular status intact to the extremity. Right shoulder. VITAL SIGNS First Vitals Last Vitals Temp 20:49 10/05/24 97.6 F Temp 20:49 10/05/24 97.6 F BP 20:49 10/05/24 152/95 BP 20:49 10/05/24 152/95 HR 20:49 10/05/24 74 HR 20:49 10/05/24 74 RR 20:49 10/05/24 16 RR 20:49 10/05/24 16 O2 Sat 20:49 10/05/24 92% RA O2 Sat 20:49 10/05/24 92% RA Pain 20:49 10/05/24 3 Pain 20:49 10/05/24 3 ETCO2 20:49 10/05/24 ETCO2 20:49 10/05/24 GCS 20:49 10/05/24 GCS 20:49 10/05/24 RTS 20:49 10/05/24 RTS 20:49 10/05/24 PROCEDURES NURSING INTERVENTIONS LABS / STUDIES LABS / STUDIES ORDERED Shoulder R Complete CLINICAL IMPRESSION SPRAIN OF THE RIGHT ROTATOR CUFF 3 of 3 Normal [facility] ED VITALS FLOW SHEETon 10-06 ED VITALS FLOW SHEET Vitals Vital Sign Flow Sheet [place] [address] [place] [address] [id number] 10/05/2024 Patient: MARILYN ROYAL Sex: Male : 1960 Age: 63y Measurements Wt: 87.1 kg, Ht/Oneil: 71.0 in, BMI: 26.78 Measured Time BP MAP HR RR O2Sat ETCO2 Temp Pain GCS RTS 20:49 10/05/2024 152/95 114 74 16 92% RA 97.6 F 3 1 of 1 Normal [facility] SHOULDER COMPLETE RTon 10-05 SHOULDER COMPLETE RT [address] [address] Patient: MARILYN ROYAL Phone#: : 1960 Age: 63 Gender: M Pt. Type: ER Account: [id number] Location: [facility] Ordering: LUL CHI Exam Date: 10/05/2024/21:48 Family Phys: Charge Code: 616294 Physician: Crook Order #: [id number] Dose#: PROCEDURE: X-RAY SHOULDER COMPLETE RT MIN 2 VIEWS COMPARISON: [facility], XR, CHEST 2 VIEWS, 10/14/2023, 7:19. INDICATIONS: Pain. FINDINGS: BONES: Age-indeterminate fracture of the mid clavicle with superior angulation. There is adjacent callus formation. Humeral head is normal in contour. Joint space is maintained. There is degenerative spurring of the glenoid. Median sternotomy wires are present. Degenerative changes of the spine. SOFT TISSUES: Negative. No visible soft tissue swelling. EFFUSION: None visible. OTHER: Negative. CONCLUSION: 1. No acute osseous abnormality Dictated by: Marine Little MD on 10/06/2024 at 9:38 Approved by: Marine Little MD on 10/06/2024 at 9:41 Normal [facility] CBC + DIFFon 07-19-2024 Baso # 0.04 x10EE3/UL Normal 0.00 - 0.10 [facility] Comment on above: Performed By: #### 2 [id number] #### [facility],[address] [place] [address] Basophils/100 WBC (Bld) 0.4 % Normal 0.0 - 2.0 [facility] Comment on above: Performed By: #### 2 28077 #### [facility],[address] [place] [address] CBC + DIFF Normal [facility] Comment on above: Result Comment: CBC- COMPLETE BLOOD COUNT Performed By: #### 2 78502 #### [facility],[address] [place] [address] EO # 0.13 x10EE3/UL Normal 0.00 - 0.50 [facility] Comment on above: Performed By: #### 2 86258 #### [facility],[address] [place], [place] [id number] Eosinophils/100 WBC (Bld) 1.2 % Normal 0.0 - 7.0 [facility] Comment on above: Performed By: #### 2 04882 #### [facility],[address] [place] [address] Erythrocyte distribution width (RBC) [Ratio] 13.0 % Normal 12.0 - 15.6 [facility] Comment on above: Performed By: #### 2 37678 #### [facility],[address] [place] [address] Hematocrit (Bld) [Volume fraction] 45.9 % Normal 40.0 - 52.0 [facility] Comment on above: Performed By: #### 2 28460 #### [facility],[address] [place], [place] [id number] Hemoglobin (Bld) [Mass/Vol] 15.6 g/dL Normal 13.0 - 17.5 [facility] Comment on above: Performed By: #### 2 79612 #### [facility],[address] [place], [place] [id number] Lymph # 2.36 x10EE3/UL Normal 0.80 - 2.80 [facility] Comment on above: Performed By: #### 2 13888 #### [facility],[address] [place] [address] 93150 Lymphocytes/100 WBC (Bld) 21.7 % Normal 20.0 - 45.0 [facility] Comment on above: Performed By: #### 2 70347 #### [facility],[address] [place] [address] 74149 MANUAL DIFF N/A Normal [facility] Comment on above: Performed By: #### 2 64037 #### [facility],[address] [place] [address] 05998 MCH (RBC) [Entitic mass] 31 pg Normal 27 - 33 [facility] Comment on above: Performed By: #### 2 35169 #### [facility],[address] [place] [address] MCHC 34 X10 3 Normal 32 - 36 [facility] Comment on above: Performed By: #### 2 35166 #### [facility],[address] [place] [address] 49250 MCV (RBC) [Entitic vol] 92 fL Normal 81 - 98 [facility] Comment on above: Performed By: #### 2 77174 #### [facility],[address] [place] [address] 73148 [place] # 0.85 x10EE3/UL Normal 0.20 - 1.00 [facility] Comment on above: Performed By: #### 2 45891 #### [facility],[address] [place] [address] 67976 MONOS % 7.8 % Normal 0.0 - 10.0 [facility] Comment on above: Performed By: #### 2 01788 #### [facility],[address] [place] [address] 23894 Morphology Shamir (Bld) [Interp] N/A Normal [facility] Comment on above: Performed By: #### 2 28119 #### [facility],[address] [place] [address] 33649 Neut # 7.51 x10EE3/UL High 1.50 - 7.10 [facility] Comment on above: Performed By: #### 2 80948 #### [facility],[address] [place] [address] 07259 Neutrophils/100 WBC (Bld) 69.0 % Normal 46.0 - 76.0 [facility] Comment on above: Performed By: #### 2 85850 #### [facility],[address] [place] [address] 21081 PLATELET 250 x10EE3/UL Normal 150 - 450 [facility] Comment on above: Performed By: #### 2 59071 #### [facility],[address] [place] [address] 05076 Platelet mean volume (Bld) [Entitic vol] 9.8 fL Normal 6.4 - 10.5 [facility] Comment on above: Result Comment: AUTO MATED DIFFERENTIAL Performed By: #### 2 84002 #### [facility],[address] [place] [address] 05600 RBC 4.98 x 10EE6/UL Normal 4.50 - 6.00 [facility] Comment on above: Performed By: #### 2 73636 #### [facility],[address] [place] [address] 88991 WBC 10.9 x 10EE3/UL High 4.5 - 10.8 [facility] Comment on above: Performed By: #### 2 00546 #### [facility],[address] [place] [address] 46565 CMP with eGFRon 07-19-2024 AGE 63 years Normal [facility] Comment on above: Performed By: #### 2 35827 #### [facility],[address] [place] [address] 79124 Albumin [Mass/Vol] 4.0 g/dL Normal 3.4 - 5.0 [facility] Comment on above: Performed By: #### 2 72314 #### [facility],[address] [place] [address] 15189 Albumin/Globulin [Mass ratio] 1.3 {ratio} Normal 0.9 - 1.6 [facility] Comment on above: Performed By: #### 2 07434 #### [facility],[address] [place] [address] 56415 ALK PHOS 58 U/L Normal 46 - 116 [facility] Comment on above: Performed By: #### 2 39573 #### [facility],[address] [place] [address] 86218 ALT [Catalytic activity/Vol] 38 U/L Normal 16 - 63 [facility] Comment on above: Performed By: #### 2 47342 #### [facility],[address] [place] [address] 38821 Anion gap [Moles/Vol] 13 mmol/L Normal 10 - 20 [facility] Comment on above: Performed By: #### 2 27428 #### [facility],[address] [place] [address] 69271 AST [Catalytic activity/Vol] 27 U/L Normal 15 - 37 [facility] Comment on above: Performed By: #### 2 28833 #### [facility],[address] [place] [address] 31641 B/C RATIO 16 ratio Normal 0 - 30 [facility] Comment on above: Performed By: #### 2 48663 #### [facility],[address] [place] [address] 39724 Bilirubin [Mass/Vol] 0.4 mg/dL Normal 0.2 - 1.0 [facility] Comment on above: Performed By: #### 2 44973 #### [facility],[address] [place] [address] 70521 Calcium [Mass/Vol] 9.1 mg/dL Normal 8.5 - 10.1 [facility] Comment on above: Performed By: #### 2 70117 #### [facility],[address] [place] [address] 54842 Chloride [Moles/Vol] 103 mmol/L Normal 98 - 107 [facility] Comment on above: Performed By: #### 2 03713 #### [facility],[address] [place] [address] 33684 CMP with eGFR Normal [facility] Comment on above: Result Comment: COMP REHENSIVE METABOLIC PANEL Performed By: #### 2 92635 #### [facility],[address] [place] [address] CO2 [Moles/Vol] 27.1 mmol/L Normal 21.0 - 32.0 [facility] Comment on above: Performed By: #### 2 50895 #### [facility],[address] [place], [place] [address] Creatinine [Mass/Vol] 0.94 mg/dL Normal 0.70 - 1.30 [facility] Comment on above: Performed By: #### 2 19557 #### [facility],[address] [place] [address] 68523 GFR/1.73 sq M.predicted among non-blacks MDRD (S/P/Bld) [Vol rate/Area] mL/min/{1.73_m2} Normal 60 - 999 [facility] Comment on above: Performed By: #### 2 83679 #### [facility],[address] [place], [place] [address] Result Comment: ACCO RDING TO THE NATIONAL KIDNEY DISEASE EDUCATION PROGRAM(NKDE), A NORMAL eGFR IS A VALUE GREATER THAN OR EQUAL TO 60 ML/MIN/1.73 SQ METERS. CHRONIC KIDNEY DISEASE: <60mL/MIN/1.73 SQ METERS KIDNEY FAILURE: <15mL/MIN/1.73 SQ METERS THIS TEST SHOULD ONLY BE USED FOR PATIENTS 18 YEARS OF AGE AND OLDER. Globulin (S) [Mass/Vol] 3.0 g/dL Normal 1.5 - 3.8 [facility] Comment on above: Performed By: #### 2 72864 #### [facility],[address] [place] [address] 87771 Glucose [Mass/Vol] 187 mg/dL High 74 - 106 [facility] Comment on above: Performed By: #### 2 63668 #### [facility],[address] [place] [address] 24409 Potassium [Moles/Vol] 4.5 mmol/L Normal 3.5 - 5.1 [facility] Comment on above: Performed By: #### 2 26992 #### [facility],[address] [place] [address] 43115 Protein [Mass/Vol] 7.0 g/dL Normal 6.4 - 8.2 [facility] Comment on above: Performed By: #### 2 80703 #### [facility],[address] [place] [address] 08409 Sodium [Moles/Vol] 139 mmol/L Normal 136 - 145 [facility] Comment on above: Performed By: #### 2 92610 #### [facility],[address] [place] [address] 91784 Urea nitrogen [Mass/Vol] 15 mg/dL Normal 7 - 18 [facility] Comment on above: Performed By: #### 2 21796 #### [facility],[address] [place] [address] 57207 HEMOGLOBIN A1C (POM)on 07-19 Glucose [Mass/Vol] 168.6 mg/dL High 0.0 - 0.0 [facility] Comment on above: Result Comment: BLDo HEMOGLOBIN A1C REFERENCE RANGESBLDo Suggested Diagnosis HbA1c(%) HbA1C (mmol/mol Diabetic >/=6.5 >/=48 Prediabetes 5.7 - 6.4 39 - 47 Normal <5.7 <39 Performed By: #### 2 82782 #### [facility],[address] [place] [address] 53687 HbA1c (Bld) [Mass fraction] 7.5 % High 0.0 - 6.5 [facility] Comment on above: Performed By: #### 2 91529 #### [facility],[address] [place] [address] 04139 LIPID PROFILEon 07-19-2024 Cholesterol [Mass/Vol] 97 mg/dL Normal 0 - 240 [facility] Comment on above: Performed By: #### 2 77013 #### [facility],[address] [place] [address] 75182 Cholesterol in HDL [Mass/Vol] 40 mg/dL Normal 40 - 60 [facility] Comment on above: Performed By: #### 2 11302 #### [facility],[address] [place] [address] 77429 Cholesterol in LDL [Mass/Vol] 35 mg/dL Normal 0 - 129 [facility] Comment on above: Performed By: #### 2 14501 #### [facility],[address] [place] [address] 95881 Cholesterol.total/Cho lesterol in HDL [Mass ratio] 2.4 {ratio} Normal 0.0 - 5.0 [facility] Comment on above: Performed By: #### 2 81129 #### [facility],[address] [place] [address] 16530 Lipid 1996 panel Normal [facility] Comment on above: Result Comment: LIPI D PROFILE Performed By: #### 2 65845 #### [facility],[address] [place] [address] 31741 Triglyceride [Mass/Vol] 108 mg/dL Normal 0 - 150 [facility] Comment on above: Performed By: #### 2 27210 #### [facility],[address] [place] [address] 27196 Body Fluid Culton 12-30-2023 BFC UNK UNK No growth in 5 days. Normal [facility] Comment on above: Performed By: #### L 200.0400, L200.4175, M100.2000, M100.2900, M100.4001 #### [facility] [address] [place], [address] Culture, Anaerobic Any Sourc phillip 12-30-2023 CUAN UNK UNK No growth in 5 days. Normal [facility] Comment on above: Performed By: #### L 200.0400, L200.4175, M100.2000, M100.2900, M100.4001 #### [facility] [address] [place], [address] Crystals, Body Fluidon 12-24 PATH REV Reviewed Normal [facility] Comment on above: Result Comment: NO D IAGNOSTIC CRYSTALS IDENTIFIED Ger Pitts D.O. 12/25/23 AMENDED REPORT 12/25/23 1416 PATH REV previously reported as: Will follow Performed By: #### L 200.0400, L200.4175, M100.2000, M100.2900, M100.4001 #### [facility] [address] [place], [address] Gram Stainon 12-25-2023 GS UNK UNK Centrifuged Specimen? Culture performed on centrifuged specimen Gram Stain No organisms seen Rare White Blood Cells 2+ Red Blood Cells Normal [facility] Comment on above: Performed By: #### L 200.0400, L200.4175, M100.2000, M100.2900, M100.4001 #### [facility] [address] [place], [address] Synovial Fluid RBC, WBC AND Diffon 12-24-2023 SYNOVIAL ERWIN. Cloudy Normal CLEAR [facility] Comment on above: Performed By: #### L 200.0400, L200.4175, M100.2000, M100.2900, M100.4001 #### [facility] [address] [place], [address] SYNOVIAL COLOR Red Normal Pale Yellow [facility] Comment on above: Performed By: #### L 200.0400, L200.4175, M100.2000, M100.2900, M100.4001 #### [facility] [address] [place], [address] SYNOVIAL RBC 8065 /mm3 High 0 [facility] Comment on above: Performed By: #### L 200.0400, L200.4175, M100.2000, M100.2900, M100.4001 #### [facility] [address] [place], [address] SYNOVIAL SOURCE RIGHT BUTTOCK Normal [facility] Comment on above: Performed By: #### L 200.0400, L200.4175, M100.2000, M100.2900, M100.4001 #### [facility] [address] [place], [address] .Auto Diffon 11-13-2023 Basophil, Absolute 0.0 10 3/mcL Normal 0.0-0.2 [facility] ([place]) Comment on above: Performed By: #### C ROB TORRES ADIFF #### [address] [address] Basophils/100 WBC (Bld) 0.2 % Normal 0.0-2.5 [facility] ([place]) Comment on above: Performed By: #### ROB HAYWARD, ADIFF #### [address] [address] Eosinophil, Absolute 0.0 10 3/mcL Normal 0.0-0.4 [facility] ([place]) Comment on above: Performed By: #### C ROB TORRES, ADIFF #### [address] [address] Eosinophils/100 WBC (Bld) 0.2 % Normal 0.0-7.0 [facility] ([place]) Comment on above: Performed By: #### ROB HAYWARD, ADIFF #### [address] [address] Lymphocyte, Absolute 3.5 10 3/mcL Normal 0.8-3.9 [facility] ([place]) Comment on above: Performed By: #### C ROB TORRES, ADIFF #### [place] [address] [place], [place] [address] Lymphocytes/100 WBC (Bld) 18.6 % Normal 10.0-50.0 [facility] ([place]) Comment on above: Performed By: #### C ROB TORRES, ADIFF #### [address] [address] Monocyte, Absolute 1.8 10 3/mcL High 0.2-1.0 [facility] ([place]) Comment on above: Performed By: #### C ROB TORRES, ADIFF #### [address] [address] Monocytes/100 WBC (Bld) 9.3 % Normal 1.7-13.0 [facility] ([place]) Comment on above: Performed By: #### C ROB TORRES, ADIFF #### [address] [address] Neutrophils/100 WBC (Bld) 71.7 % Normal 37.0-80.0 [facility] ([place]) Comment on above: Performed By: #### C ROB TORRES, ADIFF #### [address] [address] .GFRon 11-13-2023 GFR 109 ml/min/1.73sqm Normal [facility] ([place]) Comment on above: Result Comment: GFR Population mean for , Non- Americans Ages 20-29 = 116 mL/min/1.73 sq.m. Ages 30-39 = 107 mL/min/1.73 sq.m. Ages 40-49 = 99 mL/min/1.73 sq.m. Ages 50-59 = 93 mL/min/1.73 sq.m. Ages 60-69 = 85 mL/min/1.73 sq.m. Ages 70+ = 75 mL/min/1.73 sq.m. Chronic Kidney Disease: Less than 60 mL/min/1.73 square meters End Stage Renal Disease: Less than 15 mL/min/1.73 square meters Performed By: #### Lobo VIDAL, BMP #### [address] [address] GFR Non- 90 ml/min/1.73sqm Normal [facility] ([place]) Comment on above: Result Comment: GFR Population mean for , Non- Americans Ages 20-29 = 116 mL/min/1.73 sq.m. Ages 30-39 = 107 mL/min/1.73 sq.m. Ages 40-49 = 99 mL/min/1.73 sq.m. Ages 50-59 = 93 mL/min/1.73 sq.m. Ages 60-69 = 85 mL/min/1.73 sq.m. Ages 70+ = 75 mL/min/1.73 sq.m. Chronic Kidney Disease: Less than 60 mL/min/1.73 square meters End Stage Renal Disease: Less than 15 mL/min/1.73 square meters Performed By: #### Lobo VIDAL, BMP #### [address] [address] .NEUABSon 11-13-2023 Neutrophil, Absolute 13.6 10 3/mcL High 2.9-6.2 [facility] ([place]) Comment on above: Performed By: #### C BCROB, ADIFF #### [address] [address] BMPon 11-13-2023 BUN/Creatinine Ratio 20 ratio Normal 7-27 [facility] ([place]) Comment on above: Performed By: #### Lobo VIDAL, BMP #### [address] [address] Calcium [Mass/Vol] 8.7 mg/dL Normal 8.4-10.2 On license of [facility] ([place]) Comment on above: Performed By: #### Lobo VIDAL, BMP #### [address] [address] Chloride [Moles/Vol] 102 mmol/L Normal 98-107 [facility] ([place]) Comment on above: Performed By: #### Lobo VIDAL, BMP #### [address] [address] CO2 [Moles/Vol] 27 mmol/L Normal 23-31 [facility] ([place]) Comment on above: Performed By: #### G FR, BMP #### [address] [address] Creatinine [Mass/Vol] 0.86 mg/dL Normal 0.70-1.30 [facility] ([place]) Comment on above: Performed By: #### G , BMP #### [address] [address] Electrolyte Balance 11.0 mEq/L Normal 4.0-15.0 [facility] ([place]) Comment on above: Performed By: #### Lobo VIDAL, BMP #### [address] [address] Glucose [Mass/Vol] 149 mg/dL High 80-115 On license of [facility] ([place]) Comment on above: Performed By: #### Lobo VIDAL, BMP #### [address] [address] Potassium [Moles/Vol] 4.1 mmol/L Normal 3.5-5.1 [facility] ([place]) Comment on above: Performed By: #### G FR, BMP #### [address] [address] Sodium [Moles/Vol] 140 mmol/L Normal 136-145 On license of [facility] ([place]) Comment on above: Performed By: #### G FR, BMP #### [address] [address] Urea nitrogen [Mass/Vol] 17 mg/dL Normal 7-18 [facility] ([place]) Comment on above: Performed By: #### G , BMP #### [address] [address] CBCon 11-13-2023 Erythrocyte distribution width (RBC) [Ratio] 12.9 % Normal 11.5-14.5 [facility] ([place]) Comment on above: Performed By: #### C BC, ANEU, ADIFF #### [address] [address] Hematocrit (Bld) [Volume fraction] 42.4 % Normal 42.0-52.0 [facility] ([place]) Comment on above: Performed By: #### C BC, ANEU, ADIFF #### [address] [address] Hgb 14.5 G/dL Normal 14.0-18.0 [facility] ([place]) Comment on above: Performed By: #### C BC, ANEU, ADIFF #### [address] [address] MCH (RBC) [Entitic mass] 31.2 pg Normal 27.0-31.2 [facility] ([place]) Comment on above: Performed By: #### C BC, ANEU, ADIFF #### [address] [address] MCHC 34.1 G/dL Normal 31.8-35.4 [facility] ([place]) Comment on above: Performed By: #### C BC, ANEU, ADIFF #### [address] [address] MCV (RBC) [Entitic vol] 91.4 fL Normal 80.0-94.0 [facility] ([place]) Comment on above: Performed By: #### C BC, ANEU, ADIFF #### [address] [address] Platelet 198 10 3/mcL Normal 130-400 [facility] ([place] Comment on above: Performed By: #### C BC, ANEU, ADIFF #### [address] [address] Platelet mean volume (Bld) [Entitic vol] 9.3 fL Normal 7.4-10.4 [facility] [place] Comment on above: Performed By: #### C BC, ANEU, ADIFF #### [address] [address] RBC 4.64 10 6/mcL Normal 4.04-6.13 [facility] ([place]) Comment on above: Performed By: #### C BC, ANEU, ADIFF #### [address] [place] [address] [place], [place] [address] WBC 18.9 10 3/mcL High 4.6-10.8 [facility] ([place]) Comment on above: Performed By: #### C BC, ANEU, ADIFF #### [facility] [place] [address] [place], [place] [address] LABORATORYOrdered By: SYSTEM SYSTEM on 11-13-2023 Basophil, Absolute 0.0 103/mcL Normal 0.0 - 0.2 10^3/mcL AO Workflow SS Basophils/100 WBC (Bld) 0.2 % Normal 0.0 - 2.5 % AO Workflow SS Calcium [Mass/Vol] 8.7 mg/dL Normal 8.4 - 10. 2 mg/dL AO ADM SS Chloride [Moles/Vol] 102 mmol/L Normal 98 - 10 7 mmol/L AO ADM SS CO2 [Moles/Vol] 27 mmol/L Normal 23 - 31 mmol/L AO ADM SS Creatinine [Mass/Vol] 0.86 mg/dL Normal 0.70 - 1.30 mg/dL AO ADM SS Electrolyte Balance 11.0 mEq/L Normal 4.0 - 15 .0 mEq/L AO ADM SS Eosinophil, Absolute 0.0 103/mcL Normal 0.0 - 0 .4 10^3/mcL AO Workflow SS Eosinophils/100 WBC (Bld) 0.2 % Normal 0.0 - 7.0 % AO Workflow SS Erythrocyte distribution width (RBC) [Ratio] 12.9 % Normal 11.5 - 14.5 % AO Workflow SS GFR/1.73 sq M.predicted among blacks MDRD (S/P/Bld) [Vol rate/Area] 109 ml/min/1.73sqm Invalid Interpretation Code AO Chemistry S Comment on above: Interpretive Data: GFR Population mean for , Non- Americans Ages 20-29 = 116 mL/min/1.73 sq.m. Ages 30-39 = 107 mL/min/1.73 sq.m. Ages 40-49 = 99 mL/min/1.73 sq.m. Ages 50-59 = 93 mL/min/1.73 sq.m. Ages 60-69 = 85 mL/min/1.73 sq.m. Ages 70+ = 75 mL/min/1.73 sq.m. Chronic Kidney Disease: Less than 60 mL/min/1.73 square meters End Stage Renal Disease: Less than 15 mL/min/1.73 square meters GFR/1.73 sq M.predicted among non-blacks MDRD (S/P/Bld) [Vol rate/Area] 90 ml/min/1.73sqm Invalid Interpretation Code AO Chemistry S Comment on above: Interpretive Data: GFR Population mean for , Non- Americans Ages 20-29 = 116 mL/min/1.73 sq.m. Ages 30-39 = 107 mL/min/1.73 sq.m. Ages 40-49 = 99 mL/min/1.73 sq.m. Ages 50-59 = 93 mL/min/1.73 sq.m. Ages 60-69 = 85 mL/min/1.73 sq.m. Ages 70+ = 75 mL/min/1.73 sq.m. Chronic Kidney Disease: Less than 60 mL/min/1.73 square meters End Stage Renal Disease: Less than 15 mL/min/1.73 square meters Glucose [Mass/Vol] 149 mg/dL High 80 - 115 mg/dL AO ADM SS Hematocrit (Bld) [Volume fraction] 42.4 % Normal 42.0 - 52.0 % AO Workflow SS Hemoglobin (Bld) [Mass/Vol] 14.5 G/dL Normal 14.0 - 18.0 G/dL AO Workflow SS Lymphocyte, Absolute 3.5 103/mcL Normal 0.8 - 3 .9 10^3/mcL AO Workflow SS Lymphocytes/100 WBC (Bld) 18.6 % Normal 10.0 - 50.0 % AO Workflow SS MCH (RBC) [Entitic mass] 31.2 pg Normal 27.0 - 31.2 pg AO Workflow SS MCHC 34.1 G/dL Normal 31.8 - 35.4 G/dL AO Workflow SS MCV (RBC) [Entitic vol] 91.4 fL Normal 80.0 - 94.0 fL AO Workflow SS Monocyte, Absolute 1.8 103/mcL High 0.2 - 1.0 10^3/mcL AO Workflow SS Monocytes/100 WBC (Bld) 9.3 % Normal 1.7 - 13.0 % AO Workflow SS Neutrophil, Absolute 13.6 103/mcL High 2.9 - 6 .2 10^3/mcL AO Workflow SS Neutrophils/100 WBC (Bld) 71.7 % Normal 37.0 - 80.0 % AO Workflow SS Platelet mean volume (Bld) [Entitic vol] 9.3 fL Normal 7.4 - 10.4 fL AO Workflow SS Platelets (Bld) [#/Vol] 198 103/mcL Normal 130 - 400 10^3/mcL AO Workflow SS Potassium [Moles/Vol] 4.1 mmol/L Normal 3.5 - 5.1 mmol/L AO ADM SS RBC (Bld) [#/Vol] 4.64 106/mcL Normal 4.04 - 6.1 3 10^6/mcL AO Workflow SS Sodium [Moles/Vol] 140 mmol/L Normal 136 - 145 mmol/L AO ADM SS Urea nitrogen [Mass/Vol] 17 mg/dL Normal 7 - 18 mg/dL AO ADM SS Urea nitrogen/Creatinine [Mass ratio] 20 ratio Normal 7 - 27 ratio AO ADM SS WBC (Bld) [#/Vol] 18.9 103/mcL High 4.6 - 10.8 10^3/mcL AO Workflow SS LABORATORYOrdered By: Kai Carvajal on 11-12-2023 Glucose [Mass/Vol] 148 mg/dL High 82 - 115 mg/dL [facility] XR FLUORO < 1HR TECH TIMEon 11-12-2023 XR FLUORO < 1HR TECH TIME ORIGINAL Images acquired, not reported on this accession number. Normal [facility] ([place]) Hemoglobin A1con 07-27-2021 Glucose [Mass/Vol] 192 mg/dL Normal [facility] Comment on above: Performed By: #### H BA1C #### [facility] Routine Lab [address] [place], [place] [address] HbA1c (Bld) [Mass fraction] 8.3 % High 4.3-5.6 [facility] Comment on above: Performed By: #### H BA1C #### [facility] Routine Lab [address] [place], [place] [address] Hemoglobin A1con 04-26-2021 Glucose [Mass/Vol] 174 mg/dL Normal [facility] Comment on above: Performed By: #### H BA1C #### [facility] Routine Lab [address] [place], [place] [address] HbA1c (Bld) [Mass fraction] 7.7 % High 4.3-5.6 [facility] Comment on above: Performed By: #### H BA1C #### [facility] Routine Lab [address] [place], [place] [address] Hemoglobin A1con 04-21-2020 HbA1c (Bld) [Mass fraction] 9.9 % High 4.3-5.6 [facility] Comment on above: Performed By: #### H BA1C #### [facility] Routine Lab [address] [place], [place] [id number] HbA1c (Bld) [Mass fraction] 237 mg/dL Normal [facility] Comment on above: Performed By: #### H BA1C #### [facility] Routine Lab [address] [place], [place] [id number] Vital Signs Date Time Vital Sign Value Performing Clinician Facility 02-15-2025 15:23-040 Body height 180.3 cm Thony Chavez MD Work Phone: [facility] 02-15-2025 15:23-040 Body mass index (BMI) [Ratio] 27.55 kg/m2 Thony Chavez MD Work Phone: [facility] 02-15-2025 15:23-040 Body weight 89.58 kg Thony Chavez MD Work Phone: [facility] 02-15-2025 15:23-040 Diastolic blood pressure 80 mm[Hg] Thony Chavez MD Work Phone: [facility] 02-15-2025 15:23-040 Heart rate 88 /min Thony Chavez MD Work Phone: [facility] 02-15-2025 15:23-0400 SaO2% (BldA) [Mass fraction] 93 % Thony Chavez MD Work Phone: [facility] 02-15-2025 15:23-0400 Systolic blood pressure 150 mm[Hg] Thony Chavez MD Work Phone: [facility] 11-13-2023 10:32-0400 Body temperature 98.42 [degF] JESS COY DO [facility] 11-13-2023 10:32-0400 Diastolic Blood Pressure Non-Invasive 65 mm[Hg] JESS COY DO [facility] 11-13-2023 10:32-0400 Heart rate 78 /min JESS COY DO [facility] 11-13-2023 10:32-0400 Reason For Taking VItal Signs JESS COY DO [facility] 11-13-2023 10:32-0400 Respiratory rate 16 /min JESS COY DO [facility] 11-13-2023 10:32-0400 Systolic Blood Pressure Non-Invasive 128 mm[Hg] JESS COY DO [facility] 11-13-2023 07:51-0400 Heart rate 80 /min JESS COY DO [facility] 11-13-2023 06:18-0400 Body temperature 98.6 [degF] JESS COY DO [facility] 11-13-2023 06:18-0400 Diastolic Blood Pressure Non-Invasive 50 mm[Hg] JESS COY DO [facility] 11-13-2023 06:18-0400 Heart rate 81 /min JESS COY DO [facility] 11-13-2023 06:18-0400 Reason For Taking VItal Signs JESS COY DO [facility] 11-13-2023 06:18-0400 Respiratory rate 16 /min JESS COY DO [facility] 11-13-2023 06:18-0400 Systolic Blood Pressure Non-Invasive 121 mm[Hg] JESS COY DO [facility] 11-13-2023 03:47-0400 Body temperature 98.06 [degF] JESS COY DO [facility] 11-13-2023 03:47-0400 Diastolic Blood Pressure Non-Invasive 69 mm[Hg] JESS COY DO [facility] 11-13-2023 03:47-0400 Heart rate 78 /min JESS COY DO [facility] 11-13-2023 03:47-0400 Reason For Taking VItal Signs JESS COY DO [facility] 11-13-2023 03:47-0400 Respiratory rate 16 /min JESS COY DO [facility] 11-13-2023 03:47-0400 Systolic Blood Pressure Non-Invasive 105 mm[Hg] JESS COY DO [facility] 11-12-2023 22:49-0400 Heart rate 82 /min JESS COY DO [facility] 11-12-2023 18:37-0400 Heart rate 86 /min JESS COY DO [facility] 11-12-2023 16:45-0400 Heart rate 89 /min JESS COY DO [facility] 11-12-2023 14:30-0400 Heart rate 80 /min JESS COY DO [facility] 11-12-2023 10:42-0400 Body height 180.34 cm JESS COY DO [facility] 11-12-2023 10:42-0400 Body weight 82.27 kg JESS COY DO [facility] 11-12-2023 10:42-0400 Body weight 25.3 kg/m2 JESS COY DO [facility] 11-12-2023 09:10-0400 Body temperature 97.34 [degF] JESS COY DO [facility] 11-12-2023 09:05-0400 Respiratory Rate - Anes 13 br/min JESS COY DO [facility] 11-12-2023 09:00-0400 Respiratory Rate - Anes 12 br/min JESS COY DO [facility] 11-12-2023 08:55-0400 Respiratory Rate - Anes 13 br/min JESS COY DO [facility] 11-12-2023 06:34-0400 Body height 180.34 cm JESS COY DO [facility] 11-12-2023 06:34-0400 Body temperature 97.88 [degF] JESS COY DO [facility] 11-12-2023 06:34-0400 Body weight 82.27 kg JESS COY DO [facility] 11-12-2023 06:34-0400 Heart rate 76 /min JESS COY DO [facility] 11-05-2023 10:00-0400 Blood Pressure Location JESS COY DO [facility] 11-05-2023 10:00-0400 Body height 180.3 cm JESS COY DO [facility] 11-05-2023 10:00-0400 Body weight 82.3 kg JESS COY DO [facility] 11-05-2023 10:00-0400 Body weight 25.32 kg/m2 JESS COY DO [facility] 11-05-2023 10:00-0400 Diastolic Blood Pressure Non-Invasive 82 mm[Hg] JESS COY DO [facility] 11-05-2023 10:00-0400 Heart rate 76 /min JESS COY DO [facility] 11-05-2023 10:00-0400 Respiratory rate 20 /min JESS COY DO [facility] 11-05-2023 10:00-0400 Systolic Blood Pressure Non-Invasive 133 mm[Hg] JESS COY DO [facility] Encounters Encounter Date Encounter Type Care Provider Facility Start: 02-15-2025 End: 02-15-2025 Office outpatient new 30 minutes Thony Chavez MD Work Phone: [facility] Comment on above: Nicotine dependence with current use (Primary Dx); Cigarette smoker; Primary hypertension; Type 2 diabetes mellitus with hyperglycemia, without long-term current use of insulin; Major depressive disorder with single episode, in partial remission; Coronary artery disease involving coronary bypass graft of [place] heart without angina pectoris Start: 01-26-2025 End: 01-26-2025 ambulatory SEBASTIAN TRAORE [facility] Start: 12-09-2024 End: 12-09-2024 Office outpatient visit 25 minutes Mercy Echlos MD Work Phone: [facility] Comment on above: Right shoulder pain, unspecified chronicity Start: 12-09-2024 End: 12-09-2024 ambulatory [facility] Start: 12-09-2024 End: 12-09-2024 Subsequent hospital visit by physician Point Of Care Ultrasound [facility]TERNAL [facility] Comment on above: Arrived Start: 12-09-2024 End: 12-09-2024 ambulatory [facility] Start: 11-01-2024 End: 11-01-2024 Subsequent hospital visit by physician Rad External Film [facility]TERNAL [facility] Comment on above: Arrived Start: 11-01-2024 End: 11-01-2024 ambulatory [facility] Start: 10-29-2024 End: 10-29-2024 Subsequent hospital visit by physician Point Of Care Ultrasound [facility]TER[facility] Comment on above: Arrived Start: 10-29-2024 End: 10-29-2024 Office outpatient new 45 minutes Mercy Echols MD Work Phone: [facility] Comment on above: Right shoulder pain, unspecified chronicity Start: 10-29-2024 End: 10-29-2024 ambulatory [facility] Start: 10-05-2024 End: 10-05-2024 Emergency department patient visit JUSTINO SIN [facility] Start: 07-19-2024 End: 07-19-2024 amb[address] DE LA ROSA [facility] Start: 02-04-[address]24 [address] DE LA 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 Facility:[facility] Start: 11-12-2023 End: 11-13-2023 Observation JESS COY DO [facility] Start: 11-05-2023 End: 11-06-2023 ambulatory JESS COY DO Facility:[facility] Start: 11-05-2023 End: 11-05-2023 Admission to establishment JESS COY DO [facility] Procedures Date Procedure Procedure Detail Performing Clinician Start: 01-26-2025 Urinalysis RADHA COHEN Comment on above: Result Comment: URIN ALYSIS Performed By: #### [id number] #### [facility],[address] [place] [address] Start: 12-09-2024 US Abdomen Mercy ordonez MD Work Phone: Start: 11-01-2024 Study Interpretation of outside study Mercy Echols MD Work Phone: Start: 10-29-2024 Arthrocentesis aspir &/inj major jt/bursa w/us Mercy Echols MD Work Phone: Start: 10-29-2024 US Abdomen Mercy ordonez MD Work Phone: Start: 10-10-2020 Injection into lumba r epidural space JESS COY DO Comment on above: L4-L5 Start: 09-11-2020 Fluoroscopy guided i njection of bilateral facet joints of lumbar spine JESS COY DO Start: 07-07-2014 Coronary artery bypa ss grafts x 3 JESS COY DO Start: 07-07-2001 Placement of stent i n cardiac conduit JESS COY DO Comment on above: 2006 Cataract (disorder) JESS COY DO Comment on above: 2017, with insertion of prosthetic lens, bilateral Neurostimulation of spinal cord tissue JESS COY DO Comment on above: trial Tonsillectomy JESS COY DO Plan of Treatment Date Care Activity Detail Author Start: 05-18-2025 End: 05-18-2025 Patient encounter procedure 05/18/2025 3:00 PM EST Office Visit [facility] [address] [place] [address] Thony Chavez MD [address] [facility], [address] [place] [id number] [facility] Start: 03-07-2025 Influenza vaccination [facility] Start: 03-04-2025 End: 03-04-2025 Patient encounter procedure 03/04/2025 3:15 PM EDT Office Visit [facility] [address] [place] [id number] Ebenezer Holliday MD [address], [address] [place], [place] [id number] [facility] Start: 03-02-2025 End: 03-02-2025 Patient encounter procedure 03/02/2025 3:00 PM EDT Appointment [id number] [place] [address] [facility] Start: 02-15-2025 End: 02-15-2026 CT Chest for screening CT lung screening low dose Imaging Routine Cigarette smoker Expected: 02/15/2025, Expires: 02/15/[address] [facility] Service Area Work Phone: Comment on above: Expected: 02/15/2025 , Expires: 02/15/2026 Start: 02-15-2025 End: 02-15-2026 Hemoglobin A1c/Hemoglobin.total in Blood Hemoglobin A1C Lab Routine Type 2 diabetes mellitus with hyperglycemia, without long-term current use of insulin Expected: 02/15/2025 (Approximate), Expires: 02/15/2026 [facility] Work Phone: Comment on above: Expected: 02/15/2025 (Approximate), Expires: 02/15/2026 Start: 12-09-2024 End: 12-09-2024 Patient encounter procedure 12/09/2024 8:45 AM EDT Office Visit [facility] [address] [place] [address] Mercy Echols MD [address] [place] [address] [facility] Start: 10-19-2024 End: 10-19-2025 XR Cervical spine 2 or 3 Views XR cervical spine 2-3 views Imaging Routine Right shoulder pain, unspecified chronicity Expected: 10/19/2024 (Approximate), Expires: 10/19/2025 [facility] Work Phone: Comment on above: Expected: 10/19/2024 (Approximate), Expires: 10/19/2025 Start: 10-19-2024 End: 10-19-2025 XR Shoulder - right 2 Views XR shoulder right 2+ views Imaging Routine Right shoulder pain, unspecified chronicity Expected: 10/19/2024 (Approximate), Expires: 10/19/[address] [facility] Service Area Work Phone: Comment on above: Expected: 10/19/2024 (Approximate), Expires: 10/19/2025 Start: 10-07-2024 Abdominal aortic aneurysm screening Abdominal Aortic Aneurysm (AAA) Screening [facility] Start: 03-07-2024 COVID-19 Vaccine ( season) COVID-19 Vaccine ( season) [facility] Start: 10-17-2023 Urine screening for protein Diabetes: Urine Protein Screening [facility] Start: 01-15-2023 Hemoglobin A1c measurement Diabetes: Hemoglobin A1C [facility] Start: 2019 RSV High Risk: (Elde rly (60+) or Population) (1 - Risk 60-74 years 1-dose series) RSV High Risk: (Elderly (60+) or Population) (1 - Risk 60-74 years 1-dose series) [facility] Start: 10-07-2009 Pneumococcal vaccination Pneumococcal Vaccine (1 of 1 - PCV) [facility] Start: 10-07-2009 Prostate specific antigen measurement PSA Prostate Cancer Screening [facility] Start: 10-07-2009 Zoster Vaccines (1 o f 2) Zoster Vaccines (1 of 2) [facility] Start: 10-07-1981 DTaP/Tdap/Td Vaccine s (1 - Tdap) DTaP/Tdap/Td Vaccines (1 - Tdap) [facility] Start: 10-07-1978 Pneumococcal vaccination Pneumococcal Vaccine (1 of 2 - PCV) [facility] Start: 10-07-1977 Hepatitis C screening Hepatitis C Sc reening [facility] Start: 10-07-1969 Glaucoma screening Diabetes: R etinopathy Screening [facility] Start: 10-07-1960 MMR Vaccines (1 of 1 - Standard series) MMR Vaccines (1 of 1 - Standard series) [facility] Start: 1959 Lipid panel Lipid Panel [facility] Start: 1959 Screening for malign ant neoplasm of colon [facility] Start: 1959 Yearly Adult Physical Yearly Adult P hysical [facility] Payers Date Payer Category Payer [employer] [facility] [id number] 2023 Self-pay 2023 Unknown [id number] 2021 Unknown [id number] 1959 Unknown [id number] [id number] 1959 Unknown [id number]. [id number] 1959 Unknown [id number] [id number]. 2.1245 1959 Unknown [id number] [id number]. 2.1245 1959 Unknown [id number] [id number]. 2.1245 1959 Unknown [id number] [id number]. 2.1244 1959 Unknown [id number] [id number]. 2.1244 1959 Unknown [id number] [id number]. 2.651 1959 Unknown [id number] [id number]. 2.651 1959 Unknown [id number] [id number]. 2.651 1959 Unknown [id number] [id number]. 2.651 Unknown [id number] [id number] Social History Date Type Detail Facility Start: 07-24-2023 Tobacco smoking status Heavy t obacco smoker (finding) [facility] Sex Assigned At Male [facility] Start: 10-29-2024 [facility] unknown [facility] Work Phone: Start: [birth year]-03-1961 Sex assigned at Not on file [facility] Work Phone: Start: 02-15-2025 Gender identity Not on file [facility] Work Phone: Start: 10-19-2024 End: 12-09-2024 Exposure to SARS-CoV-2 (event) Not sure [facility] Start: 02-15-2025 Tobacco smoking stat us [facility]IS Smokes tobacco daily [facility] History of tobacco use Cigarette Smoker [facility] Work Phone: Start: 02-15-2025 Tobacco use and exposure Smokeless tobacco non-user [facility] Work Phone: Start: 02-15-2025 Alcoholic beverage intake Current drinker of alcohol (finding) [facility] Work Phone: Start: 02-15-2025 History of Social function [facility] Work Phone: Start: 02-15-2025 Alcohol Comment 1 beer a month [facility] Work Phone: Start: 10-11-2024 Sex Male [facility] Functional Status Date Assessment Result Facility 02-15-2025 Patient Health Questionnaire 2 item (PHQ-2) [Reported] [facility] Work Phone: 11-13-2023 Functional Status Door open, Room check performed [facility] 11-13-2023 Functional Status [facility] 11-12-2023 Functional Status [facility] 11-12-2023 Functional Status [facility] 11-12-2023 Functional Status [facility] 11-12-2023 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, 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, 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, 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, 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, Personal ADL [facility] 11-12-2023 Functional Status None [facility] 11-12-2023 Functional Status Patient Identi fied Identification band [facility] 11-12-2023 Functional Status Maintained Bharti Nagi taylor [facility] 11-05-2023 Functional Status Sensory Deficits None [facility] Work Phone: Mental Status Date Assessment Result Facility 11-13-2023 Mental Status Oriented x 4 [facility] 11-12-2023 Mental Status [facility] 11-12-2023 Mental Status [facility] 11-12-2023 Mental Status [facility] Clinical Notes 07-25-2023 to 02-15-2025 Thony Chavez MD - 02/15/2025 3:40 PM EDTPatient InstructionsAssessment & Plan Note - Mercy Echols MD - 12/09/2024 9:04 AM EDTRfredo Echols MD - 12/09/2024 8:45 AM EDTLaboratoryRadiology Note Date & Type Note Facility 02-15-2025 History of Presen t illness Narrative Subjective Patient ID: Marilyn Royal is a 64 y.o. male who presents for Establish Care. 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 HENT: Head: Normocephalic and atraumatic. Eyes: Conjunctiva/sclera: Conjunctivae normal. Pupils: Pupils are equal, round, and reactive to light. Cardiovascular: Rate and Rhythm: Normal rate and regular rhythm. Heart sounds: Normal heart sounds. Pulmonary: Effort: Pulmonary effort is normal. Breath sounds: Normal breath sounds. Lymphadenopathy: Cervical: No cervical adenopathy. Skin: Coloration: Skin is not jaundiced. Neurological: General: No focal deficit present. Mental Status: He is alert and oriented to person, place, and time. Psychiatric: Mood and Affect: Mood normal. Behavior: Behavior normal. Thought Content: Thought content normal. Judgment: Judgment normal. Assessment/Plan Diagnoses and all orders for this visit: Nicotine dependence with current use Weight loss Cigarette smoker - CT lung screening low dose; Future Primary hypertension - olmesartan (BENIcar) 20 mg tablet; Take 1 tablet (20 mg) by mouth once daily. Type 2 diabetes mellitus with hyperglycemia, without long-term current use of insulin - Hemoglobin A1C; Future - Rybelsus 3 mg tablet; Take 1 tablet (3 mg) by mouth early in the morning.. Major depressive disorder with single episode, in partial remission - buPROPion XL (Wellbutrin XL) 150 mg 24 hr tablet; Take 1 tablet (150 mg) by mouth once daily in the morning. Do not crush, chew, or split. Coronary artery disease involving coronary bypass graft of [place] heart without angina pectoris - Referral to Cardiology; Future Thony Chavez MD 02/15/25 3:59 PM documented in this encounter [facility] Work Phone: 02-15-2025 Instructions Thony Chavez MD - 02/15/2025 3:40 PM EDT Quitting Smoking Quitting smoking is the most important step you can take to improve your health. We're glad you have set a goal to improve your health. Quit Smoking Resources In addition to medications, use the STAR plan to help you successfully quit. Stick with your quit date! Tell friends, family, and coworkers your quit date. Request their understanding and support. Anticipate and prepare for challenges. Some examples are withdrawal symptoms, being around others who smoke, and drinking alcohol. Remove all tobacco products and paraphernalia from your environment. Make your home and vehicles smoke-free. Free resources for additional support: National tobacco quitline: 9-645-JUTX-NOW ( ). SmokefreeTXT is a free text program to assist you in quitting. Visit https://www.smokefree.gov/smokef reetxt for more information. documented in this encounter [facility] Work Phone: 12-09-2024 Evaluation + Plan note Associated Problem(s): Right shoulder pain Assessment: Right shoulder impingement syndrome with some partial tears of the rotator cuff supraspinatus Plan: MRI of shoulder- F/U once completed Voltaren gel use as directed. Physical therapy range of motion and strengthening Codman's advance as tolerated. Follow-up in 6 weeks for reevaluation. [facility] Work Phone: 12-09-2024 Miscellaneous Notes Associated Problem(s): Right shoulder pain Assessment: Right shoulder impingement syndrome with some partial tears of the rotator cuff supraspinatus Plan: MRI of shoulder- F/U once completed Voltaren gel use as directed. Physical therapy range of motion and strengthening Codman's advance as tolerated. Follow-up in 6 weeks for reevaluation. documented in this encounter [facility] Work Phone: 12-09-2024 History of Presen t illness Narrative Assessment/Plan Encounter Diagnoses: Right shoulder pain, unspecified chronicity Right shoulder pain Assessment: Right shoulder impingement syndrome with some partial tears of the rotator cuff supraspinatus Plan: MRI of shoulder- F/U once completed Voltaren gel use as directed. Physical therapy range of motion and strengthening Codman's advance as tolerated. Follow-up in 6 weeks for reevaluation. Subjective Patient ID: Marilyn Royal is a 64 y.o. male. Chief Complaint: Follow-up and Pain of the Right Shoulder Last Surgery: No surgery found Last Surgery Date: No surgery found HPI 64-year-old ambidextrous but right-handed for athletics. 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 He has had several months of soreness and pain into the right shoulder. He has not golfed since this began so he is not sure how this might affect his golf although he has hit a few swings in the simulator with no problems. OBJECTIVE: ORTHO EXAM Right shoulder: Inspection: Skin healthy to gross inspection No ecchymosis, no edema, no gross atrophy Palpation: Acromioclavicular joint minimal tenderness Biceps tendon/ groove moderate tenderness Anterior Acromial Bursal Area moderate tenderness Cervical spine scant tenderness ROM: Forward Flexion 180 degrees active External Rotation 70 degrees at 90 degrees abduction Internal Rotation 70 degrees at 90 degrees abduction Strength: 4/5 Supraspinatus isolation- resisted elevation 4/5 Infraspinatus isolation- ER 5/5 Subscapularis- IR Negative lift off test Negative Spurling s test Positive Neer and Hawking s test Negative Speed's test Negative Inferior Sulcus Negative Anterior Apprehension Full unrestricted motion at Elbow/Wrist/Hand Neurovascular exam normal distally IMAGE RESULTS: Point of Care Ultrasound These images are not reportable by radiology and will not be interpreted by Radiologists. ULTRASOUND DIAGNOSTIC ULTRASOUND FINAL REPORT: Right SHOULDER Provider: Mercy Echols MD Date of Exam: Today Procedure: Ultrasound, extremity, nonvascular, real-time, COMPLETE, anatomic specific. Site: SHOULDER Indication: SHOULDER PAIN Technique: B-Mode Ultrasound Examination performed using 8-13 MHz linear transducer with [employer] STUDY TYPE: 1. ULTRASOUND EXTREMITY INCLUDING BUT NOT LIMITED TO SHOULDER MUSCLE, TENDONS, LIGAMENTS, FATTY TISSUES, SUBCUTANEOUS TISSUES AND OTHER SOFT TISSUE STRUCTURES SUCH ABSCESSES OR FREE FLUID ACCUMULATION WITHIN THE PRIMARY JOINT WELL ADJACENT JOINTS. 2. REAL TIME WITH IMAGE DOCUMENTATION 3. NON-VASCULAR 4. COMPLETE STUDY WHICH INCLUDES A THOROUGH EVALUATION OF THE SHOULDER MUSCLE, TENDONS, LIGAMENTS, FATTY TISSUES, SUBCUTANEOUS TISSUES AND OTHER SOFT TISSUE STRUCTURES SUCH ABSCESSES OR FREE FLUID ACCUMULATION WITHIN THE PRIMARY JOINT WELL ADJACENT JOINTS. Live ultrasound was performed of the patient s SHOULDER and PERMANENTLY documented. This is a thorough and complete evaluation of a specific anatomic region specifically the SHOULDER. PERMANENT Image documentation was performed. This is the complete and final ultrasound report of the patient's SHOULDER. The patient was positioned in order to optimize the ultrasound evaluation of the SHOULDER. Ultrasound gel was used as a conductive medium in order to both transmit and receive ultrasonic signals that characterize the soft tissues. . I personally performed the ultrasound and reviewed the findings. These show: Findings: SHOULDER Gabbi-articular evaluation: Live ultrasound was performed of the patient's SHOULDER that shows tendinosis and some partial-thickness tears of the supraspinatus and infraspinatus tendons with the deltoid muscle fibers showing normal striations. There was no sub acromial effusion. Evaluation of the subscapularis with the arm in external rotation showed an intact and normal appearing subscapularis tendon. Joint Evaluation: The biceps tendon was visualized within the bicipital groove. Procedures Orders Placed This Encounter Point of Care Ultrasound documented in this encounter [facility] Work Phone: 10-29-2024 Evaluation + Plan note Associated Problem(s): Right shoulder pain Assessment: Right shoulder impingement syndrome with some partial tears of the rotator cuff supraspinatus Plan: Under ultrasound control 40 mg of Kenalog was injected into the subacromial space. He had an excellent lidocaine suppression test. Voltaren gel use as directed. Physical therapy range of motion and strengthening phase 1 Codman's advance as tolerated. Follow-up in 6 weeks for reevaluation. [facility] Work Phone: 10-29-2024 Miscellaneous Notes Associated Problem(s): Right shoulder pain Assessment: Right shoulder impingement syndrome with some partial tears of the rotator cuff supraspinatus Plan: Under ultrasound control 40 mg of Kenalog was injected into the subacromial space. He had an excellent lidocaine suppression test. Voltaren gel use as directed. Physical therapy range of motion and strengthening phase 1 Codman's advance as tolerated. Follow-up in 6 weeks for reevaluation. documented in this encounter [facility] Work Phone: 10-29-2024 History of Presen t illness Narrative Associated Order(s): L Inj/Asp: R subacromial bursa Post-Procedure Diagnose(s): Right shoulder pain, unspecified chronicity Assessment/Plan Encounter Diagnoses: Right shoulder pain, unspecified chronicity Right shoulder pain Assessment: Right shoulder impingement syndrome with some partial tears of the rotator cuff supraspinatus Plan: Under ultrasound control 40 mg of Kenalog was injected into the subacromial space. He had an excellent lidocaine suppression test. Voltaren gel use as directed. Physical therapy range of motion and strengthening phase 1 Codman's advance as tolerated. Follow-up in 6 weeks for reevaluation. Subjective Patient ID: Marilyn Royal is a 64 y.o. male. Chief Complaint: New Patient Visit of the Right Shoulder (X-RAYS 10-05-24/DOI END September/PAIN RATE 5) and New Patient Visit of the Neck (CERVICAL PAIN /X-RAYS 10-05-24/PAIN RATE 5/DOI END OF SEPTEMBER) Last Surgery: No surgery found Last Surgery Date: No surgery found HPI 64-year-old ambidextrous but right-handed for athletics. 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 He has had several months of soreness and pain into the right shoulder. He has not golfed since this began so he is not sure how this might affect his golf although he has hit a few swings in the simulator with no problems. OBJECTIVE: ORTHO EXAM Right shoulder: Inspection: Skin healthy to gross inspection No ecchymosis, no edema, no gross atrophy Palpation: Acromioclavicular joint minimal tenderness Biceps tendon/ groove moderate tenderness Anterior Acromial Bursal Area moderate tenderness Cervical spine scant tenderness ROM: Forward Flexion 180 degrees active External Rotation 70 degrees at 90 degrees abduction Internal Rotation 70 degrees at 90 degrees abduction Strength: 4/5 Supraspinatus isolation- resisted elevation 4+/5 Infraspinatus isolation- ER 5/5 Subscapularis- IR Negative lift off test Negative Spurling s test Positive Neer and Hawking s test Negative Speed's test Negative Inferior Sulcus Negative Anterior Apprehension Full unrestricted motion at Elbow/Wrist/Hand Neurovascular exam normal distally IMAGE RESULTS: Point of Care Ultrasound These images are not reportable by radiology and will not be interpreted by Radiologists. ULTRASOUND DIAGNOSTIC ULTRASOUND FINAL REPORT: Right SHOULDER Provider: Mercy Echols MD Date of Exam: Today Procedure: Ultrasound, extremity, nonvascular, real-time, COMPLETE, anatomic specific. Site: SHOULDER Indication: SHOULDER PAIN Technique: B-Mode Ultrasound Examination performed using 8-13 MHz linear transducer with [employer] STUDY TYPE: 1. ULTRASOUND EXTREMITY INCLUDING BUT NOT LIMITED TO SHOULDER MUSCLE, TENDONS, LIGAMENTS, FATTY TISSUES, SUBCUTANEOUS TISSUES AND OTHER SOFT TISSUE STRUCTURES SUCH ABSCESSES OR FREE FLUID ACCUMULATION WITHIN THE PRIMARY JOINT WELL ADJACENT JOINTS. 2. REAL TIME WITH IMAGE DOCUMENTATION 3. NON-VASCULAR 4. COMPLETE STUDY WHICH INCLUDES A THOROUGH EVALUATION OF THE SHOULDER MUSCLE, TENDONS, LIGAMENTS, FATTY TISSUES, SUBCUTANEOUS TISSUES AND OTHER SOFT TISSUE STRUCTURES SUCH ABSCESSES OR FREE FLUID ACCUMULATION WITHIN THE PRIMARY JOINT WELL ADJACENT JOINTS. Live ultrasound was performed of the patient s SHOULDER and PERMANENTLY documented. This is a thorough and complete evaluation of a specific anatomic region specifically the SHOULDER. PERMANENT Image documentation was performed. This is the complete and final ultrasound report of the patient's SHOULDER. The patient was positioned in order to optimize the ultrasound evaluation of the SHOULDER. Ultrasound gel was used as a conductive medium in order to both transmit and receive ultrasonic signals that characterize the soft tissues. . I personally performed the ultrasound and reviewed the findings. These show: Findings: SHOULDER Gabbi-articular evaluation: Live ultrasound was performed of the patient's SHOULDER that shows tendinosis and some partial-thickness tears of the supraspinatus and infraspinatus tendons with the deltoid muscle fibers showing normal striations. There was no sub acromial effusion. Evaluation of the subscapularis with the arm in external rotation showed an intact and normal appearing subscapularis tendon. Joint Evaluation: The biceps tendon was visualized within the bicipital groove. L Inj/Asp: R subacromial bursa on 10/29/2024 9:37 AM Indications: pain Details: ultrasound-guided anterior approach Medications: 2.5 mg triamcinolone acetonide 40 mg/mL Procedure, treatment alternatives, risks and benefits explained, specific risks discussed. Immediately prior to procedure a time out was called to verify the correct patient, procedure, equipment, client support analyst and site/side marked as required. Patient was prepped and draped in the usual sterile fashion. Orders Placed This Encounter XR shoulder right 2+ views XR cervical spine 2-3 views Point of Care Ultrasound Referral to Physical Therapy documented in this encounter [facility] Work Phone: 10-06-2024 Note Discharge Instructio ns Discharge Summary [place] [id number] [place] [phone] 10/05/2024 Patient: MARILYN ROYAL Sex: Male : 1960 Age: 63y Thank you for visiting [facility]. You have been evaluated today by Lul Chi D.O. for the following condition(s): Principal Diagnosis Sprain of the right rotator cuff. INSTRUCTIONS Limit lifting. No strenuous activity. (X-rays looked okay by my read any except for the old clavicle fracture. Our in-house radiologist will review the x-rays tomorrow. Any discrepancy will make an attempt to contact you. Otherwise follow up with Dr. Traore. Take medication as prescribed. Do not take Aleve or ibuprofen while on the Toradol.). Warnings: GENERAL WARNINGS: Return or contact your physician immediately if your condition worsens or changes unexpectedly, if not improving as expected, or if other problems arise. Prescription Medications: ketorolac 10 mg tablet: Take 1 tablet by mouth every eight hours as needed for pain for 5 days, dispense 15 tablet. Refills 0. Pharmacy: [facility] - [address] [place] [phone]. Understanding of the discharge instructions verbalized by patient. Follow-up with: Sebastina Traore MD, [facility], Internal Medicine, Phone: [phone], [phone] 1 of 4 Discharge Instructions [facility] [address], [place] [address]. Follow up in four days. Reason for referral: evaluation and treatment. Summary of care provided to patient. 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 [address] [phone] 10/05/2024 Patient: MARILYN ROYAL Sex: Male : 1960 Age: 63y Thank you for visiting [facility]. You have been evaluated today by Lul Chi D.O. for the following condition(s): Principal Diagnosis Sprain of the right rotator cuff. INSTRUCTIONS Limit lifting. No strenuous activity. (X-rays looked okay by my read any except for the old clavicle fracture. Our in-house radiologist will review the x-rays tomorrow. Any discrepancy will make an attempt to contact you. Otherwise follow up with Dr. Traore. Take medication as prescribed. Do not take Aleve or ibuprofen while on the Toradol.). Warnings: GENERAL WARNINGS: Return or contact your physician immediately if your condition worsens or changes unexpectedly, if not improving as expected, or if other problems arise. 2 of 4 Discharge Instructions Prescription Medications: ketorolac 10 mg tablet: Take 1 tablet by mouth every eight hours as needed for pain for 5 days, dispense 15 tablet. Refills 0. [facility] [place] [address]. Understanding of the discharge instructions verbalized by patient. Follow-up with: Sebastian Traore MD, [facility], Internal Medicine, Phone: [phone], [phone] [facility] [address] [facility], [place] [phone]. Follow up in four days. Reason for referral: evaluation and treatment. Summary of care provided to patient. ADDITIONAL INFORMATION Shoulder Sprain A sprain is a stretching or tearing of the ligaments that hold a joint together. A sprain may take up to 8 weeks to fully heal, depending on how severe it is. Moderate to severe shoulder sprains are treated with a sling or shoulder immobilizer. Minor sprains can be treated without any special support. Home care The following guidelines will help you care for your injury at home: If a sling was given to you, leave it in place for the time advised by your healthcare provider. If you aren't sure how long to wear it, ask for advice. If the sling becomes loose, adjust it so that your forearm is parallel to the ground. Your shoulder should feel well supported. Put an ice pack on the injured area for 20 minutes every 1 to 2 hours the first day. You can make your own ice pack by putting ice cubes in a plastic bag. A bag of frozen peas or something similar works well too. Wrap the bag in a thin towel. Continue with ice packs 3 to 4 times a day for the next 2 to 3 days. Then use the pack as needed to ease pain and swelling. You may use acetaminophen or ibuprofen to control pain, unless another pain medicine was prescribed. If you have chronic liver or kidney disease, talk with your healthcare provider before using these medicines. Also talk with your provider if you've had a stomach ulcer or gastrointestinal bleeding. 3 of 4 Discharge Instructions Shoulder joints become stiff if left in a sling for too long. You should start range of motion exercises usually about 7 to 10 days after the injury. Talk with (more content not included)... [facility] 11-13-2023 Hospital Discharg e instructions Patient Education 11/13/2023 10:26:06 Spinal Cord Stimulator Implantation, Care After Spinal Cord Stimulator Implant, Care After This sheet gives you information about how to care for yourself after your procedure. Your health care provider may also give you more specific instructions. If you have problems or questions, contact your health care provider. What can I expect after the procedure? After the procedure, it is common to have: Mild pain, bruising, and swelling. Headaches. Soreness in the back. Follow these instructions at home: Incision care Follow instructions from your health care provider about how to take care of your incisions. Make sure you: ?Wash your hands with soap and water before you change your bandages (dressings). If soap and water are not available, use hand franchise sales representative. ?Change your dressings as told by your health care provider. ?Leave stitches (sutures), skin glue, or adhesive strips in place. These skin closures may need to stay in place for 2 weeks or longer. If adhesive strip edges start to loosen and curl up, you may trim the loose edges. Do not remove adhesive strips completely unless your health care provider tells you to do that. Check your incision areas every day for signs of infection. Check for: ?Redness, more swelling, or more pain. ?More fluid or blood. ?Warmth. ?Pus or a bad smell. Activity Ask your health care provider what activities are safe for you during recovery. Do not do any of the following until your health care provider approves: ?Drive. ?Activity that requires a lot of energy, including exercise and sports. ?Lift anything that is heavier than 5 lb (2.3 kg), or the limit that you are told. ?Engage in sexual activity. ?Lift your arms above your head. ?Sleep on your stomach, if your device was placed in your abdomen. ?Bend, twist, stretch, or reach for things. Bathing Do not take baths, swim, or use a hot tub until your health care provider approves. Ask your health care provider if you may take showers. You may only be allowed to take sponge baths. Safety Devices that sends out wireless signals may affect your stimulator. If directed by your health care provider, avoid the following: ?MRI and ultrasound tests. ?Metal detectors. ?Anti-theft devices. ?Generators or power lines. Always carry your device ID card with you. Tell all health care providers who care for you that you have a spinal cord stimulator. This is important information that could affect the medical treatment that you receive. General instructions Work with your health care provider to adjust your settings as needed for pain control. Adjusting settings may take some time. Most stimulators can be controlled with a remote. Take lxpj-unu-yxtrtqs and prescription medicines only as told by your health care provider. Do not use any products that contain nicotine or tobacco, such as cigarettes and e-cigarettes. If you need help quitting, ask your health care provider. Drink enough fluid to keep your urine pale yellow. Keep all follow-up visits as told by your health care provider. This is important. Contact a health care provider if you have: A fever. Severe pain, and medicines do not help. More fluid or blood coming from your incisions. Headaches that do not go away. Get help right away if: You have redness, more swelling, or more pain around your incisions. Your incision area feels warm to the touch. You have pus or a bad smell coming from your incision area. You have chest pain or problems breathing. You have sudden and severe back pain. You have weakness or sudden muscle tightening (spasms) in your legs. You are not able to control when you urinate or have a bowel movement (incontinence). Summary After implantation of a spinal cord stimulator, mild pain, muscle soreness, headaches, and bruising are common. Follow instructions from your health care provider about incision care, bathing, medicines, and activity. Work with your health care provider to adjust your settings as needed for pain control. Adjusting settings may take some time. Most stimulators can be controlled with a remote. This information is not intended to replace advice given to you by your health care provider. Make sure you discuss any questions you have with your health care provider. Document Released: 08/06/2018 Document Revised: 10/14/2019 Document Reviewed: 08/06/2018 [employer] Patient Education 2020 Transfer To. 11/13/2023 10:26:04 Spinal Cord Stimulator Implantation Spinal Cord Stimulator Implant A spinal cord stimulator is a small device that makes electrical signals and sends them through wires (leads) to nerves in the spinal cord. This stimulates the nerves and can help relieve long-term (chronic) pain in the back, legs, or arms. Implantation is a procedure to place this device under the skin. This procedure is done if a temporary spinal cord stimulator effectively reduces your pain during a trial period. A spinal cord stimulator may have an electrical pulse generator, a battery, and leads. It may also come with a small remote that you can control. Stimulators with a rechargeable battery may last up to 10 years. Stimulators with a non-rechargeable battery may last 2 5 years before being replaced. Tell a health care provider about: Any allergies you have. All medicines you are taking, including vitamins, herbs, eye drops, creams, and tnlc-niq-tmxpyqa medicines. Any problems you or family members have had with anesthetic medicines. Any blood disorders you have. Any surgeries you have had. Any medical conditions you have. Whether you are or may be . What are the risks? Generally, this is a safe procedure. However, problems may occur, including: Infection. Bleeding. Allergic reactions to medicines, devices, or dyes. Damage to the skin where the battery is placed, or damage to nerves, back muscles, or the spinal cord. The device or battery failing or not working. A lead moving out of place. Inability to move (paralysis). A pocket of clear fluid forming under the skin (seroma). Spinal fluid leakage. Numbness. Inability to control when you urinate or have a bowel movement (incontinence). What happens before the procedure? Staying hydrated Follow instructions from your health care provider about hydration, which may include: Up to 2 hours before the procedure you may continue to drink clear liquids, such as water, clear fruit juice, black coffee, and plain tea. Eating and drinking restrictions Follow instructions from your health care provider about eating and drinking, which may include: 8 hours before the procedure stop eating heavy meals or foods such as meat, fried foods, or fatty foods. 6 hours before the procedure stop eating light meals or foods, such as toast or cereal. 6 hours before the procedure stop drinking milk or drinks that contain milk. 2 hours before the procedure stop drinking clear liquids. Medicines Ask your health care provider about: ?Changing or stopping your regular medicines. This is especially important if you are taking diabetes medicines or blood thinners. ?Taking medicines such as aspirin and ibuprofen. These medicines can thin your blood. Do not take these medicines unless your health care provider tells you to take them. ?Taking guxb-sxf-uiueylc medicines, vitamins, herbs, and supplements. General instructions You may be asked to shower with a germ-killing soap. Do not use any products that contain nicotine or tobacco, such as cigarettes and e-cigarettes. If you need help quitting, ask your health care provider. You will have blood tests and physical exams. You may have chest X-rays. You will have an electrocardiogram (ECG) to check the electrical patterns and rhythms of your heart. Plan to have someone take you home from the hospital or clinic. Plan to have a responsible adult care for you for at least 24 hours after you leave the hospital or clinic. This is important. Ask your health care provider what steps will be taken to help prevent infection. These may include: ?Removing hair at the surgery site. ?Washing skin with a germ-killing soap. ?Antibiotic medicine. What happens during the procedure? An IV will be inserted into one of your veins. You will be given one or more of the following: ?A medicine to help you relax (sedative). ?A medicine to numb the area (local anesthetic). ?A medicine to make you fall asleep (general anesthetic). Dye may be injected into your spinal canal (epidural space) to make it easier to see on X-rays. X-rays may be done during the procedure to help implant the stimulator. A small incision will be made in your back. A small piece of bone may be removed from your spine to make room for the device. Leads will be placed near your spinal cord. X-rays may be done to make sure they are in the right place. The leads will be tested with stimulation, and you will be asked to react to the tests. If you are under general anesthetic, you will be woken up for this part, and then given more medicine to make you fall asleep again. The leads will all be joined to one lead that connects to the pulse generator (lead wire). The lead wire will be placed under your skin so that it leads from your spine to your abdomen or buttocks. A small incision will be made in your abdomen or buttocks. The pulse generator will be placed in either your abdomen or buttocks and connected to the lead wire. A small pocket of skin will be formed around it. Your incisions will be closed with stitches (sutures). Your incisions will be covered with bandages (dressings). The procedure may vary among health care providers and hospitals. What happens after the procedure? Your blood pressure, heart rate, breathing rate, and blood oxygen level will be monitored until you leave the hospital or clinic. You will be given pain medicine as needed. You will have to drink fluids. Your pulse generator may be programmed. Do not drive until your health care provider approves. You may have to stay in the hospital after the procedure. Ask your health care provider how long you will stay. Summary A spinal cord stimulator sends electrical pulses through the leads to the spinal cord. This can relieve pain. A spinal cord stimulator may have an electrical pulse generator, a battery, and a small remote that you can control. Plan to have a responsible adult care for you for at least 24 hours after you leave the hospital or clinic. This information is not intended to replace advice given to you by your health care provider. Make sure you discuss any questions you have with your health care provider. Document Released: 08/06/2018 Document Revised: 10/14/2019 Document Reviewed: 08/06/2018 [employer] Patient Education 2020 [employer] Follow Up Care 10/31/2023 11:13:39 With:JESS COY DO, Orthopedic Address: [address] [place] [address], [address] [facility] [place] [address]- [phone] When:12/03/2023 14:45:00 Comments:This is your post-op appointment. Follow-up as scheduled. It is in the [place] office. [facility] Bhartialonso Espinoza 11-13-2023 Note Discharge Instructions Thank you for allowing [facility] to assist you with your healthcare needs. The following is important discharge information regarding your hospital visit. Your Care Team Jess Coy DO Your Diagnosis Cardiomyopathy Diabetes mellitus HTN (hypertension) Lumbar spondylosis What to do next Instructions From Your Doctor 1. During your procedure, you received sedation through your IV. Please follow these instructions for the next 24 hours: Do not drive a motor vehicle, do not drink any alcoholic beverages, do not sign any legal documents or make personal or business decisions. A responsible adult should stay with you at least 6 hours after the procedure. 2. Keep your surgical site/incision clean and the dressing dry and intact. Do not get the dressing wet. No showering or bathing during the stimulator trial. If you have a permanent spinal cord stimulator, you must cover your incisions with a waterproof dressing to shower. Do not use bathtubs, hot tubs, swimming pools etc. You may use an ice pack at the surgical site to reduce swelling or discomfort. 3. Monitor the incision for any signs or symptoms of infection. Watch for redness, excessive swelling or drainage, or continued pain at the incision site after 3 days. Contact your physician immediately for a fever, chills, or a temperature of 101.5 Fahrenheit or greater. #4 take your medication exactly as prescribed by your physician. Do not attempt to wean yourself off any of your medication even though your pain is improving. This process needs to be carefully monitored by your doctor. Take any antibiotics prescribed exactly as directed until they are gone. 5. Avoid stretching, bending, pulling, twisting or any sudden movements. Do not bend or twist at the waist. Do not raise your arms above your head. Do not lie on your stomach. 6. no lifting greater than 5 pounds. 7. Do not operate a motor vehicle, equipment or power tools while your stimulator is on. 8. Do not have any manipulation done by a chiropractor or any other physician without first consulting with the physician who placed your spinal cord stimulator. 9. Please call if you have any questions, problems, or concerns Follow Up Appointments Follow Up with JESS COY DO, Orthopedic When 12/03/2023 02:45 PM EDT Why: This is your post-op appointment. Follow-up as scheduled. It is in the [facility] office. Where: [address] [place] [address], [address] [facility] [place] [address]- [phone] Allergies Chantix (vomiting) Medications Please ask your primary doctor or pharmacist before taking any other medication not listed, including over the counter drugs, herbal medications, vitamins and or supplements as they may interact with your home medications. What How Much When Why Instructions Last Dose Changed acetaminophen-hydrocodone (Selden 325- 5 mg oral tablet) 1 tab(s) by mouth Every 6 hours as needed for for pain Lumbar spondylosis Duration: 7 Days Pickup at [facility] Unchanged capsaicin topical (Salonpas Gel-Patch) 2 Topical Two (2) times a day Unchanged dapagliflozin (Farxiga 10 mg oral tablet) 1 tab(s) by mouth Once a day Unchanged docusate (docusate sodium 50 mg oral capsule) 1 cap by mouth Two (2) times a day as needed for as needed for constipation Unchanged DULoxetine (Cymbalta 60 mg oral delayed release capsule) 1 cap by mouth Once a day Unchanged gabapentin (gabapentin 600 mg oral tablet) 1 tab(s) by mouth Four (4) times a day as needed for Pain TAKE ONE TABLET BY MOUTH THREE TIMES DAILY Unchanged glipiZIDE (glipiZIDE 10 mg oral tablet) 1 tab(s) by mouth Once a day Unchanged metFORMIN (metFORMIN 750 mg oral tablet EXTENDED RELEASE) TAKE ONE TABLET BY MOUTH TWICE DAILY FOR diabetes Unchanged metoprolol (Lopressor 25mg--USE metoprolol tartrate 25 mg oral tablet) 1 tab(s) by mouth Two (2) times a day Unchanged rosuvastatin (rosuvastatin 40 mg oral tablet) TAKE ONE TABLET BY MOUTH EVERY night Unchanged semaglutide (Ozempic 2 mg/ 3 mL (0.25 mg or 0.5 mg dose) subcutaneous solution) 0.25 Milligram Subcutaneous Every week Pharmacy Information [facility]: [address] [place] [id number] [phone] What How Much When Comments Stop Taking aspirin (aspirin 81 mg oral delayed release tablet) 1 tab(s) by mouth Every day Stop Taking aspirin (aspirin 81 mg oral delayed release tablet) 1 tab(s) by mouth Every day Please take this list to your next doctor s visit. Bring all medications you take, including over the counter medications, herbals and other supplements with you to your doctor s visit. Patients and families are reminded to discard old lists and to update any records with all medication providers or retail pharmacies. Medication Leaflets acetaminophen and hydrocodone (a SEET a MIN oh fen and arlin TREJO done) Verdrocet What is the most important information I should know about acetaminophen and hydrocodone? MISUSE OF OPIOID MEDICINE CAN CAUSE ADDICTION, OVERDOSE, OR . Keep the medication in a place where others cannot get to it. Taking opioid medicine during may cause life-threatening withdrawal symptoms in the . Fatal side effects can occur if you use opioid medicine with alcohol, or with other drugs that cause drowsiness or slow your breathing. Stop taking this medicine and call your doctor right away if you have skin redness or a rash that spreads and causes blistering and peeling. What is acetaminophen and hydrocodone? Acetaminophen and hydrocodone is a combination medicine used to relieve moderate to severe pain. Acetaminophen and hydrocodone contains an opioid medicine, and may be habit-forming. Acetaminophen and hydrocodone may also be used for purposes not listed in this medication guide. What should I discuss with my healthcare provider before taking acetaminophen and hydrocodone? You should not use this medicine if you are allergic to acetaminophen or hydrocodone, or if you have: severe asthma or breathing problems; or a blockage in your stomach or intestines. Tell your doctor if you have ever had: breathing problems, sleep apnea (breathing stops during sleep); liver disease; a drug or alcohol addiction; kidney disease; a head injury or seizures; urination problems; or problems with your thyroid, pancreas, or gallbladder. If you use opioid medicine while you are , your baby could become dependent on the drug. This can cause life-threatening withdrawal symptoms in the baby after it is born. Babies born dependent on opioids may need medical treatment for several weeks. Ask a doctor before using opioid medicine if you are . Tell your doctor if you notice severe drowsiness or slow breathing in the nursing baby. How should I take acetaminophen and hydrocodone? Follow all directions on your prescription label. Never take this medicine in larger amounts, or for longer than prescribed. An overdose can damage your liver or cause . Tell your doctor if you feel an increased urge to use more of this medicine. Never share this medicine with another person, especially someone with a history of drug abuse or addiction. MISUSE CAN CAUSE ADDICTION, OVERDOSE, OR . Keep the medicine in a place where others cannot get to it. Selling or giving away this medicine is against the law. Measure liquid medicine carefully. Use the dosing syringe provided, or use a medicine dose-measuring device (not a kitchen spoon). If you need surgery or medical tests, tell the doctor ahead of time that you are using this medicine. You should not stop using this medicine suddenly. Follow your doctor's instructions about tapering your dose. Store at room temperature away from moisture and heat. Keep track of your medicine. You should be aware if anyone is using it improperly or without a prescription. Do not keep leftover opioid medication. Just one dose can cause in someone using this medicine accidentally or improperly. Ask your pharmacist where to locate a drug take-back disposal program. If there is no take-back program, flush the unused medicine down the toilet. What happens if I miss a dose? Since this medicine is used for pain, you are not likely to miss a dose. Skip any missed dose if it is almost time for your next dose. Do not use two doses at one time. What happens if I overdose? Seek emergency medical attention or call the Poison Help line at . An overdose of this medicine can be fatal, especially in a child or other person using the medicine without a prescription. Overdose symptoms may include nausea, vomiting, sweating, severe drowsiness, pinpoint pupils, slow breathing, or no breathing. Your doctor may recommend you get naloxone (a medicine to reverse an opioid overdose) and keep it with you at all times. A person caring for you can give the naloxone if you stop breathing or don't wake up. Your caregiver must still get emergency medical help and may need to perform CPR (cardiopulmonary resuscitation) on you while waiting for help to arrive. Anyone can buy naloxone from a pharmacy or local health department. Make sure any person caring for you knows where you keep naloxone and how to use it. What should I avoid while taking acetaminophen and hydrocodone? Avoid driving or operating machinery until you know how this medicine will affect you. Dizziness or drowsiness can cause falls, accidents, or severe injuries. Do not drink alcohol. Dangerous side effects or could occur. Ask a doctor or pharmacist before using any other medicine that may contain acetaminophen (sometimes abbreviated as APAP). Taking certain medications together can lead to a fatal overdose. What are the possible side effects of acetaminophen and hydrocodone? Get emergency medical help if you have signs of an allergic reaction: hives; difficulty breathing; swelling of your face, lips, tongue, or throat. Opioid medicine can slow or stop your breathing, and may occur. A person caring for you should give naloxone and/or seek emergency medical attention if you have slow breathing with long pauses, blue colored lips, or if you are hard to wake up. In rare cases, acetaminophen may cause a severe skin reaction that can be fatal. This could occur even if you have taken acetaminophen in the past and had no reaction. Stop taking this medicine and call your doctor right away if you have skin redness or a rash that spreads and causes blistering and peeling. Call your doctor at once if you have: noisy breathing, sighing, shallow breathing, breathing that stops; a light-headed feeling, like you might pass out; liver problems--nausea, upper stomach pain, tiredness, loss of appetite, dark urine, stephanie-colored stools, jaundice (yellowing of the skin or eyes); low cortisol levels-- nausea, vomiting, loss of appetite, dizziness, worsening tiredness or weakness; o high levels of serotonin in the body--agitation, hallucinations, fever, sweating, shivering, fast heart rate, muscle stiffness, twitching, loss of coordination, nausea, vomiting, diarrhea. Serious breathing problems may be more likely in older adults and in those who are debilitated or have wasting syndrome or chronic breathing disorders. Common side effects include: dizziness, drowsiness, feeling tired; nausea, vomiting, stomach pain; constipation; or headache. This is not a complete list of side effects and others may occur. Call your doctor for medical advice about side effects. You may report side effects to FDA at 5-762-AGJ-4798. What other drugs will affect acetaminophen and hydrocodone? You may have breathing problems or withdrawal symptoms if you start or stop taking certain other medicines. Tell your doctor if you also use an antibiotic, antifungal medication, heart or blood pressure medication, seizure medication, or medicine to treat HIV or hepatitis C. Opioid medication can interact with many other drugs and cause dangerous side effects or . Be sure your doctor knows if you also use: cold or allergy medicines, bronchodilator asthma/COPD medication, or a diuretic ('water pill'); medicines for motion sickness, irritable bowel syndrome, or overactive bladder; other opioids--opioid pain medicine or prescription cough medicine; a sedative like Valium--diazepam, alprazolam, lorazepam, Xanax, Klonopin, Versed, and others; drugs that make you sleepy or slow your breathing--a sleeping pill, muscle relaxer, medicine to treat mood disorders or mental illness; drugs that affect serotonin levels in your body--a stimulant, or medicine for depression, Parkinson's disease, migraine headaches, serious infections, or nausea and vomiting. This list is not complete. Other drugs may affect acetaminophen and hydrocodone, including prescription and kqbe-tmc-bxddrmy medicines, vitamins, and herbal products. Not all possible interactions are listed here. Where can I get more information? Your doctor or pharmacist can provide more information about acetaminophen and hydrocodone. Remember, keep this and all other medicines out of the reach of children, never share your medicines with others, and use this medication only for the indication prescribed. Every effort has been made to ensure that the information provided by [employer] is accurate, up-to-date, and complete, but no guarantee is made to that effect. Drug information contained herein may be time sensitive. [employer] information has been compiled for use by healthcare practitioners and consumers in the [place] and therefore [employer] does not warrant that uses outside of the [place] are appropriate, unless specifically indicated otherwise. [employer] drug information does not endorse drugs, diagnose patients or recommend therapy. [employer] drug information is an informational resource designed to assist licensed healthcare practitioners in caring for their patients and/or to serve consumers viewing this service as a supplement to, and not a substitute for, the expertise, skill, knowledge and judgment of healthcare practitioners. The absence of a warning for a given drug or drug combination in no way should be construed to indicate that the drug or drug combination is safe, effective or appropriate for any given patient. [employer] does not assume any responsibility for any aspect of healthcare administered with the aid of information [facility] provides. The information contained herein is not intended to cover all possible uses, directions, precautions, warnings, drug interactions, allergic reactions, or adverse effects. If you have questions about the drugs you are taking, check with your doctor, nurse or pharmacist. Copyright 0736-8447 [facility] [employer]. Version: 19.02. Revision Date: 10/14/2023. Education Materials Spinal Cord Stimulator Implant, Care After This sheet gives you information about how to care for yourself after your procedure. Your health care provider may also give you more specific instructions. If you have problems or questions, contact your health care provider. What can I expect after the procedure? After the procedure, it is common to have: Mild pain, bruising, and swelling. Headaches. Soreness in the back. Follow these instructions at home: Incision care Follow instructions from your health care provider about how to take care of your incisions. Make sure you: ? Wash your hands with soap and water before you change your bandages (dressings). If soap and water are not available, use hand franchise sales representative. ? Change your dressings as told by your health care provider. ? Leave stitches (sutures), skin glue, or adhesive strips in place. These skin closures may need to stay in place for 2 weeks or longer. If adhesive strip edges start to loosen and curl up, you may trim the loose edges. Do not remove adhesive strips completely unless your health care provider tells you to do that. Check your incision areas every day for signs of infection. Check for: ? Redness, more swelling, or more pain. ? More fluid or blood. ? Warmth. ? Pus or a bad smell. Activity Ask your health care provider what activities are safe for you during recovery. Do not do any of the following until your health care provider approves: ? Drive. ? Activity that requires a lot of energy, including exercise and sports. ? Lift anything that is heavier than 5 lb (2.3 kg), or the limit that you are told. ? Engage in sexual activity. ? Lift your arms above your head. ? Sleep on your stomach, if your device was placed in your abdomen. ? Bend, twist, stretch, or reach for things. Bathing Do not take baths, swim, or use a hot tub until your health care provider approves. Ask your health care provider if you may take showers. You may only be allowed to take sponge baths. Safety Devices that sends out wireless signals may affect your stimulator. If directed by your health care provider, avoid the following: ? MRI and ultrasound tests. ? Metal detectors. ? Anti-theft devices. ? Generators or power lines. Always carry your device ID card with you. Tell all health care providers who care for you that you have a spinal cord stimulator. This is important information that could affect the medical treatment that you receive. General instructions Work with your health care provider to adjust your settings as needed for pain control. Adjusting settings may take some time. Most stimulators can be controlled with a remote. Take zqta-hkx-rdpurzp and prescription medicines only as told by your health care provider. Do not use any products that contain nicotine or tobacco, such as cigarettes and e-cigarettes. If you need help quitting, ask your health care provider. Drink enough fluid to keep your urine pale yellow. Keep all follow-up visits as told by your health care provider. This is important. Contact a health care provider if you have: A fever. Severe pain, and medicines do not help. More fluid or blood coming from your incisions. Headaches that do not go away. Get help right away if: You have redness, more swelling, or more pain around your incisions. Your incision area feels warm to the touch. You have pus or a bad smell coming from your incision area. You have chest pain or problems breathing. You have sudden and severe back pain. You have weakness or sudden muscle tightening (spasms) in your legs. You are not able to control when you urinate or have a bowel movement (incontinence). Summary After implantation of a spinal cord stimulator, mild pain, muscle soreness, headaches, and bruising are common. Follow instructions from your health care provider about incision care, bathing, medicines, and activity. Work with your health care provider to adjust your settings as needed for pain control. Adjusting settings may take some time. Most stimulators can be controlled with a remote. This information is not intended to replace advice given to you by your health care provider. Make sure you discuss any questions you have with your health care provider. Document Released: 08/06/2018 Document Revised: 10/14/2019 Document Reviewed: 08/06/2018 [employer] Patient Education 2020 [employer] Spinal Cord Stimulator Implant A spinal cord stimulator is a small device that makes electrical signals and sends them through wires (leads) to nerves in the spinal cord. This stimulates the nerves and can help relieve long-term (chronic) pain in the back, legs, or arms. Implantation is a procedure to place this device under the skin. This procedure is done if a temporary spinal cord stimulator effectively reduces your pain during a trial period. A spinal cord stimulator may have an electrical pulse generator, a battery, and leads. It may also come with a small remote that you can control. Stimulators with a rechargeable battery may last up to 10 years. Stimulators with a non-rechargeable battery may last 2 5 years before being replaced. Tell a health care provider about: Any allergies you have. All medicines you are taking, including vitamins, herbs, eye drops, creams, and qvck-cqk-tpdnucl medicines. Any problems you or family members have had with anesthetic medicines. Any blood disorders you have. Any surgeries you have had. Any medical conditions you have. Whether you are or may be . What are the risks? Generally, this is a safe procedure. However, problems may occur, including: Infection. Bleeding. Allergic reactions to medicines, devices, or dyes. Damage to the skin where the battery is placed, or damage to nerves, back muscles, or the spinal cord. The device or battery failing or not working. A lead moving out of place. Inability to move (paralysis). A pocket of clear fluid forming under the skin (seroma). Spinal fluid leakage. Numbness. Inability to control when you urinate or have a bowel movement (incontinence). What happens before the procedure? Staying hydrated Follow instructions from your health care provider about hydration, which may include: Up to 2 hours before the procedure you may continue to drink clear liquids, such as water, clear fruit juice, black coffee, and plain tea. Eating and drinking restrictions Follow instructions from your health care provider about eating and drinking, which may include: 8 hours before the procedure stop eating heavy meals or foods such as meat, fried foods, or fatty foods. 6 hours before the procedure stop eating light meals or foods, such as toast or cereal. 6 hours before the procedure stop drinking milk or drinks that contain milk. 2 hours before the procedure stop drinking clear liquids. Medicines Ask your health care provider about: ? Changing or stopping your regular medicines. This is especially important if you are taking diabetes medicines or blood thinners. ? Taking medicines such as aspirin and ibuprofen. These medicines can thin your blood. Do not take these medicines unless your health care provider tells you to take them. ? Taking basj-hgb-pidlxkk medicines, vitamins, herbs, and supplements. General instructions You may be asked to shower with a germ-killing soap. Do not use any products that contain nicotine or tobacco, such as cigarettes and e-cigarettes. If you need help quitting, ask your health care provider. You will have blood tests and physical exams. You may have chest X-rays. You will have an electrocardiogram (ECG) to check the electrical patterns and rhythms of your heart. Plan to have someone take you home from the hospital or clinic. Plan to have a responsible adult care for you for at least 24 hours after you leave the hospital or clinic. This is important. Ask your health care provider what steps will be taken to help prevent infection. These may include: ? Removing hair at the surgery site. ? Washing skin with a germ-killing soap. ? Antibiotic medicine. What happens during the procedure? An IV will be inserted into one of your veins. You will be given one or more of the following: ? A medicine to help you relax (sedative). ? A medicine to numb the area (local anesthetic). ? A medicine to make you fall asleep (general anesthetic). Dye may be injected into your spinal canal (epidural space) to make it easier to see on X-rays. X-rays may be done during the procedure to help implant the stimulator. A small incision will be made in your back. A small piece of bone may be removed from your spine to make room for the device. Leads will be placed near your spinal cord. X-rays may be done to make sure they are in the right place. The leads will be tested with stimulation, and you will be asked to react to the tests. If you are under general anesthetic, you will be woken up for this part, and then given more medicine to make you fall asleep again. The leads will all be joined to one lead that connects to the pulse generator (lead wire). The lead wire will be placed under your skin so that it leads from your spine to your abdomen or buttocks. A small incision will be made in your abdomen or buttocks. The pulse generator will be placed in either your abdomen or buttocks and connected to the lead wire. A small pocket of skin will be formed around it. Your incisions will be closed with stitches (sutures). Your incisions will be covered with bandages (dressings). The procedure may vary among health care providers and hospitals. What happens after the procedure? Your blood pressure, heart rate, breathing rate, and blood oxygen level will be monitored until you leave the hospital or clinic. You will be given pain medicine as needed. You will have to drink fluids. Your pulse generator may be programmed. Do not drive until your health care provider approves. You may have to stay in the hospital after the procedure. Ask your health care provider how long you will stay. Summary A spinal cord stimulator sends electrical pulses through the leads to the spinal cord. This can relieve pain. A spinal cord stimulator may have an electrical pulse generator, a battery, and a small remote that you can control. Plan to have a responsible adult care for you for at least 24 hours after you leave the hospital or clinic. This information is not intended to replace advice given to you by your health care provider. Make sure you discuss any questions you have with your health care provider. Document Released: 08/06/2018 Document Revised: 10/14/2019 Document Reviewed: 08/06/2018 [employer] Patient Education 2020 [employer] Additional Information VACCINATE! IT SAVES LIVES! Members of the community who have not yet received the COVID-19 vaccine and would like to receive it can visit one of [facility] vaccine clinics. There are many vaccine clinic locations within the [facility]. For locations and available times, please visit [email or web address] It is important to note that some COVID mobile vaccine clinics are held outdoors and may be canceled in rainy or stormy conditions. To learn more about pediatric vaccinations (ages 5-11), we invite you to visit the [facility] webpage. [email or web address] [email or web address] To learn more about the COVID-19 vaccine, we invite you to visit the CDC website for a list of frequently asked questions.https://www.cdc.gov/co ronavirus/2019-ncov/vaccines/faq .html [facility] Patient Portal Access Instructions: Stay connected with your healthcare team and access your personal medical information anytime with the [employer] Patient Portal. Please follow the directions below to create your [employer] account: 1.Access the email account you provided upon registration to the hospital/physician office.2.Look for an invitation email from [facility].3.Open the email and access the invitation link: Accept Invitation to [employer].4.Fill in the required ravi to create your account. To access your account, visit [email or web address]. Click the blue button labeled Access Patient Portal and then log in with the username and password that you created in the steps above. You will be able to view your test results, lab results, a summary of your visits, upcoming appointments and more. There is also a convenient messaging option where you can send secure messages to your provider. In addition, you will have the ability to download any documents or summaries to your computer and/or send the information securely to a physician. Remember that your healthcare information is confidential, so carefully consider who you will allow to register on the [facility] [employer] Patient Portal for access to your information. You can also access the [facility] [employer] Patient Portal on the [facility] [employer] dottie. Simply click on Patient Portal and then log into your account. If you would like to receive a full copy of your medical records, please contact the [facility] Medical Records Department by calling [phone], Friday through Friday between 8 a.m. and 4:30 p.m. HOW TO SAFELY DISPOSE OF PRESCRIPTION MEDICATIONS Please use one of the following methods to safely dispose of your unused medications. 1.Use a drug disposal kit: the drug disposal pouch allows you to safely discard your old and unused drugs. Ask your nurse to give you one when you are discharged.2.Visit a local take-back location: Many local pharmacies and police departments have programs that collect old and unwanted prescription drugs. Call your local pharmacy or go to http://Spotlime.Peerby/4X8Vy0a to find one close to you.3.Make use of household items: Use cat litter or old coffee grounds to dispose medications if other options are not available. Mix your drugs with these household products, seal them in an airtight container and throw it into the garbage. Call [facility]: [phone] to be sure your drugs can be disposed of in this way. Some medicines may require a different approach.4.Never flush your medications down the toilet. IF YOU HAVE BEEN PRESCRIBED AN OPIOID FOR PAIN If you have been prescribed an opioid (such as hydrocodone, oxycodone or morphine), it is critical to understand the possible side effects and risks of opioid pain medications. Even when taken as directed, opioids can have several side effects including: Tolerance, meaning you might need to take more of a medication for the same pain relief. Nausea, vomiting and/or constipation. Sleepiness, dizziness, dry mouth, confusion, depression or itching. Physical dependence, meaning you have withdrawal symptoms when a medication is stopped, can develop within a few days. KNOW YOUR RESPONSIBILITIES It is important to know exactly how much and how often to take the opioid pain medications you are prescribed. Never take opioids in higher amounts or more often than prescribed. Do not combine opioids with alcohol or other drugs that cause drowsiness, such as benzodiazepines, also known as benzos, including diazepam and alprazolam, muscle relaxants or sleep aids. Never sell or share prescription opioids. This is illegal. Store opioids in a secure place and out of reach of others (including children, family, friends and visitors). The last page of this document has been signed and retained as a CHART COPY. Signatures Patient Education Materials Spinal Cord Stimulator Implantation, Care After Spinal Cord Stimulator Implantation Medication Leaflets acetaminophen and hydrocodone My discharge plan and instructions have been reviewed and explained to me and ILELE STEVIE J understand my current condition and have read and understand these discharge instructions. I have received a written copy of the plan/instructions. If I have questions, I am aware that I should contact my doctor. 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 [facility] 11-12-2023 Anesthesiology Consult note Patient: MARILYN ROYAL Age: 63 years Sex: Male : 1960 Associated Diagnoses: None Author: MINNIE GARCIACONE EXAMINER Preoperative Information Time of last food or liquid consumption: 11/12/2023 00:00:00 Anesthesia history Patient's history: negative. Family's history: negative. Review of Systems Respiratory: smoker. Cardiovascular: cardiomyopathy, hx CABG, HTN. Gastrointestinal: Negative. Genitourinary: Negative. Endocrine: DM. Musculoskeletal: Back pain: DDD. Integumentary: Negative. Neurologic: Negative. Health Status Allergies: Allergic Reactions (Selected) Severity Not Documented Chantix- Vomiting., Allergies (1) ActiveReaction Chantixvomiting Current medications: (Selected) Inpatient Medications Ordered LR 1000 mL: 20 mL/hr, Intravenous LR 1000 mL: 20 mL/hr, Intravenous Zofran ( PACU ): 4 mg, 2 mL, IV Push, AsDirected, PRN: Nausea/Vomiting morphine ( PACU ): 2 mg, 1 mL, IV Push, q5min, PRN: Pain, scale 4-6 Prescriptions Prescribed Farxiga 10 mg oral tablet: 10 mg, 1 tab(s), Oral, qDay, 30 tab(s), 3 Refill(s) Selden 325- 5 mg oral tablet: 1 tab(s), Oral, q6h, for 7 day(s), PRN: for pain, 28 tab(s), 0 Refill(s) Documented Medications Documented Cymbalta 60 mg oral delayed release capsule: 60 mg, 1 cap(s), Oral, qDay, 0 Refill(s) Lopressor 25mg--USE metoprolol tartrate 25 mg oral tablet: 25 mg, 1 tab(s), Oral, BID, 0 Refill(s) Ozempic 2 mg/3 mL (0.25 mg or 0.5 mg dose) subcutaneous solution: 0.25 mg, Subcutaneous, qWeek, 0 Refill(s) Salonpas Gel-Patch: 2, Topical, BID, 0 Refill(s) docusate sodium 50 mg oral capsule: 50 mg, 1 cap(s), Oral, BID, PRN: as needed for constipation, 180 cap(s), 0 Refill(s) gabapentin 600 mg oral tablet: 600 mg, 1 tab(s), Oral, QID, TAKE ONE TABLET BY MOUTH THREE TIMES DAILY, PRN: Pain glipiZIDE 10 mg oral tablet: 10 mg, 1 tab(s), Oral, qDay, 30 tab(s), 0 Refill(s) metFORMIN 750 mg oral tablet EXTENDED RELEASE: TAKE ONE TABLET BY MOUTH TWICE DAILY FOR diabetes rosuvastatin 40 mg oral tablet: TAKE ONE TABLET BY MOUTH EVERY night, Medications (4) Active Scheduled: (0) Continuous: (2) Lactated Ringers Infusion 1000 mL 1,000 mL, Intravenous, 20 mL/hr Lactated Ringers Infusion 1000 mL 1,000 mL, Intravenous, 20 mL/hr PRN: (2) morphine 2 mg/mL 1 mL syringe 2 mg 1 mL, IV Push, q5min ondansetron 2 mg/ 1 mL 2 mL INJ 4 mg 2 mL, IV Push, AsDirected Problem list: Medical Cardiomyopathy / SNOMED CT 128514158 / Confirmed Diabetes mellitus / SNOMED CT 850371736 / Confirmed Tobacco use / SNOMED CT 2397907106 / Confirmed Hyperlipidemia / SNOMED CT 02080228 / Confirmed, Active Problems (19) Arthropathy of lumbar facet joint Cardiomyopathy Cataract Cigarette smoker DDD (degenerative disc disease), lumbar Diabetes Diabetes mellitus Elevated uric acid in blood Heart attack HLD (hyperlipidemia) HTN (hypertension) Hyperlipidemia Lumbar radiculopathy Lumbosacral spondylosis without myelopathy Nocturia Onychomycosis Overweight Spondylolisthesis of lumbar region Tobacco use Histories Past Medical History: No active or resolved past medical history items have been selected or recorded. Family History: Heart disease Father Paternal Grandfather High blood pressure Mother Diabetes Father Paternal Grandfather Procedure history: Lumbar epidural injection ([id number]) on 10/10/2020 at 60 Years. Comments: 10/10/2020 9:08 Hayley Pro RN L4-L5 Fluoroscopy guided injection of bilateral facet joints of lumbar spine ([id number]) on 09/11/2020 at 59 Years. CABG x 3 - Coronary artery bypass grafts x 3 ([id number]) in 2015 at 53 Years. Placement of stent in cardiac conduit ([id number]) in 2001 at 41 Years. Comments: 09/07/2020 13:59 Hayley Welch RN 2006 Cataract ([id number]). Comments: 09/07/2020 14:00 Hayley Welch RN 2016, with insertion of prosthetic lens, bilateral Tonsillectomy ([id number]). SCS - Spinal cord stimulation ([id number]). Comments: 11/05/2023 10:14 Jocelyne Mcgowan RN trial Social History: Social & Psychosocial Habits Alcohol 11/12/2023 Use: Current Frequency: 1-2 times per month Substance Abuse 11/12/2023 Use: Never Tobacco 11/12/2023 Tobacco Use: 10 or more cigarettes (1/ Type: Cigarettes Number of years: 50 Home/Environment 11/12/2023 Living situation: Home/Independent Domestic Concerns None Primary Director Of Food And Nutrition Services: Self Current Home Treatments Blood Glucose monitoring Special Services and Community Resources None Spouse Name Sandra Marital Status of Patient if Patient Independent Adult: Nutrition/Health 11/12/2023 Type of diet: Diabetic Caffeine intake amount: 5 pops daily Appetite Good Eating Difficulties None Physical Examination Vital Signs 11/12/2023 7:45 EDT Heart Rate Monitored 75 bpm bpm Respiratory Rate - Anes 12 br/min br/min Systolic Blood Pressure Non-Invasive 93 mmHg mmHg Diastolic Blood Pressure Non-Invasive 71 mmHg mmHg 11/12/2023 7:40 EDT Heart Rate Monitored 79 bpm bpm Respiratory Rate - Anes 10 br/min br/min Systolic Blood Pressure Non-Invasive 110 mmHg mmHg Diastolic Blood Pressure Non-Invasive 86 mmHg mmHg 11/12/2023 7:35 EDT Respiratory Rate - Anes 3 br/min br/min 11/12/2023 7:30 EDT Heart Rate Monitored 76 bpm bpm Respiratory Rate - Anes 0 br/min br/min Systolic Blood Pressure Non-Invasive 111 mmHg mmHg Diastolic Blood Pressure Non-Invasive 81 mmHg mmHg 11/12/2023 7:25 EDT Respiratory Rate - Anes 0 br/min br/min Systolic Blood Pressure Non-Invasive 110 mmHg mmHg Diastolic Blood Pressure Non-Invasive 67 mmHg mmHg 11/12/2023 6:34 EDT Temperature Temporal Artery 36.6 DegC Apical Heart Rate 76 bpm Respiratory Rate 13 br/min LOW Systolic Blood Pressure Non-Invasive 125 mmHg Diastolic Blood Pressure Non-Invasive 75 mmHg Vital Signs(last 24 hrs) Last Charted Heart Rate [id number] bpm (NOVEMBER 11 07:45) SBP93 mmHg (NOVEMBER 11 07:45) DBP71 mmHg (NOVEMBER 11 07:45) Measurements from flowsheet : Measurements 11/12/2023 6:34 EDT Height 180.34 cm Admission Weight 82.27 kg Flatgap Body Weight 75.30 kg Admission Body Mass Index 25.3 m2 Pain assessment: Pain Assessment 11/12/2023 6:34 EDT Primary Pain Location Lower back Primary Pain Intensity 8 Pain Scale Type 0-10 Pain scale . General: Alert and oriented. Airway: Normal temporomandibular joint mobility. Mallampati classification: II (soft palate, fauces, uvula visible). Head: Normocephalic. Dentition Evaluation: Own teeth, Missing teeth, poor. Neck: Supple. Respiratory: diminished. Cardiovascular: Normal rate. Heart Sounds: Normal. Gastrointestinal: Soft. Musculoskeletal Normal range of motion. Integumentary: Intact. Neurologic: Alert, Oriented. Review / Management Results review: No qualifying data available , Lab results 11/12/2023 7:56 EDT SN - CTm - Surgery Start 11/12/2023 7:56 11/12/2023 7:45 EDT Heart Rate Monitored 75 bpm bpm Respiratory Rate - Anes 12 br/min br/min Systolic Blood Pressure Non-Invasive 93 mmHg mmHg Diastolic Blood Pressure Non-Invasive 71 mmHg mmHg Oxygen Saturation 98 % % Set Rate Anes 12 br/min br/min 11/12/2023 7:43 EDT SN - MO - Medication MARCAINE BUPIVACAINE 0.25% 30ML SN - MO - Route of Administration Local SN - MO - By (Single) SN - MO - By (Single) 11/12/2023 7:41 EDT SN - XI - X-Ray Type C-Arm 11/12/2023 7:41 EDT SN - Assess - LOC Alert, Awake SN - Assess - Orientation Oriented X 3 SN - Assess - Post-op Skin Integrity Intact/Dry 11/12/2023 7:40 EDT SN - CAt - Case Attendee SN - CAt - Case Attendee SN - CAt - Role Performed Reiki Practitioner 11/12/2023 7:40 EDT Heart Rate Monitored 79 bpm bpm Respiratory Rate - Anes 10 br/min br/min Systolic Blood Pressure Non-Invasive 110 mmHg mmHg Diastolic Blood Pressure Non-Invasive 86 mmHg mmHg Oxygen Saturation 97 % % Set Rate Anes 10 br/min br/min 11/12/2023 7:35 EDT Respiratory Rate - Anes 3 br/min br/min Set Rate Anes 10 br/min br/min 11/12/2023 7:30 EDT Heart Rate Monitored 76 bpm bpm Respiratory Rate - Anes 0 br/min br/min Systolic Blood Pressure Non-Invasive 111 mmHg mmHg Diastolic Blood Pressure Non-Invasive 81 mmHg mmHg Oxygen Saturation 100 % % 11/12/2023 7:25 EDT Respiratory Rate - Anes 0 br/min br/min Systolic Blood Pressure Non-Invasive 110 mmHg mmHg Diastolic Blood Pressure Non-Invasive 67 mmHg mmHg cefazolin 2 gram(s) gram(s) Sodium Chloride 0.9% 100 mL mL 11/12/2023 7:16 EDT SN - CAt - Case Attendee SN - CAt - Case Attendee SN - CAt - Case Attendee SN - CAt - Case Attendee SN - CAt - Case Attendee SN - CAt - Case Attendee SN - CAt - Case Attendee SN - CAt - Case Attendee SN - CAt - Case Attendee SN - CAt - Case Attendee SN - CAt - Case Attendee SN - CAt - Case Attendee SN - CAt - Case Attendee SN - CAt - Case Attendee SN - CAt - Role Performed Primary Surgeon SN - CAt - Role Performed CONE EXAMINER SN - CAt - Role Performed Front Maker 1 SN - CAt - Role Performed Scrub 1 SN - CAt - Role Performed Minibus Driver 1 SN - CAt - Role Performed X-Ray Tech SN - CAt - Role Performed Reiki Practitioner 11/12/2023 7:15 EDT Patient Instructions Documentation Patient Instructions Documentation 11/12/2023 6:46 EDT Able To Drink Order Detail Yes Able To Sign Consents Order Detail Yes Code Status Order Detail Full code IV Order Detail Yes Dialysis Schedule Order Detail N/A Has Diabetes Order Detail Yes Isolation Precautions Order Detail None Nurse Collect Order Detail 0 Oxygen Order Detail No Order Detail N/A Prior Valve Replacement Order Detail No Transport Mode Order Detail Ambulatory Mixer Wet Pour Details Form Mixer Wet Pour Details Form 11/12/2023 6:45 EDT Continuous IV Infusions LR Hand Left 11/12/2023 20 gauge Peripheral IV Activity: Insert new site Peripheral IV Site Condition: No complications Peripheral IV Number of Attempts: 1 Lactated Ringers Injection Begin Bag 1,000 mL mL 11/12/2023 6:34 EDT Blood Glucose, Capillary 148 mg/dL HI Height 180.34 cm Admission Weight 82.27 kg Flatgap Body Weight 75.30 kg Admission Body Mass Index 25.3 m2 Temperature Temporal Artery 36.6 DegC Apical Heart Rate 76 bpm Respiratory Rate 13 br/min LOW Systolic Blood Pressure Non-Invasive 125 mmHg Diastolic Blood Pressure Non-Invasive 75 mmHg Primary Pain Location Lower back Primary Pain Intensity 8 Pain Scale Type 0-10 Pain scale Heart Sounds ICU [id number] Heart Rhythm Regular Respirations Unlabored Respiratory Pattern Regular All Lobes Breath Sounds Clear Cough None Oxygen Therapy Room air Oxygen Saturation 96 % Abdomen Description Non-distended, Soft Bowel Sounds All Quadrants Present Urinary Elimination Voiding, no difficulties Skin Temperature Warm Skin Description Melbeta, Normal for ethnicity, Dry Skin Moisture General Dry IV Present Present Neurological Symptoms Patient denies Extremity Movement Equal Characteristics of Speech Clear Level of Consciousness Alert Strength All Extremities Strong Tone All Extremities Normal Sensation All Extremities Intact Affect/Behavior Appropriate Orientation Oriented x 4 Allergies Yes Anesthesia Extension Set Applied Yes Printer Operator On Yes Consent Form Signed Yes Patient Dressed In Hospital gown CHG Preoperative Wash/Wipe Night before procedure, Day of procedure Preop Nasal Swab Povidone-Iodine CHG Skin Prep Completed for Eligible Surgery History & Physical Update On Chart Yes History & Physical On Chart Yes Obstructive Sleep Apnea Assess Completed Yes MRSA/MSSA Protocol Yes Orientation Assessment Oriented x 4 Belongings Sent Home Glasses, Pants, Shirt, Shoes, Undergarments Assistive Device None Positioning Repositions self Activity Status ADL Awake Sequential Compression Device bilateral knee high applied/on NPO Status Maintained Standard Safety ID band on, Allergy Band on, Call device within reach, Bed in low position, Wheels locked, Visitor at bedside Allergy Band on and Verified Yes Patient ID Band on and Verified Yes Implants Verified Yes Pacemaker/AICD Verified Yes Site Verified by Patient/Family Yes Blood Consent Signed Yes Last Fluid Intake 11/11/2023 22:30 Last Food Intake 11/11/2023 22:00 Last Void 11/12/2023 6:38 Patient Cleared for Surgery By GREGORY STEWART MD Cardiac Clearance For Surgery By RADHA DOE 11/12/2023 6:20 EDT Designated Person #1 We May Share ELEAZAR Royal [phone] Designated Person #1 Relationship Spouse Privacy Restrictions Requested None Status N/A Sensory Deficits None Sleep Apnea Snore Yes Sleep Apnea Tired Yes Sleep Apnea Obstruction No Sleep Apnea Pressure Yes Sleep Apnea BMI No Sleep Apnea Age Yes Sleep Apnea Neck No Sleep Apnea Gender Yes Sleep Apnea Score 5 HI Diagnosed With Sleep Apnea No Advanced Directives No - refuses information Infectious Disease Symptoms Patient states no symptoms Infectious Disease Recent Exposure No Alcohol and Drug Use No Employee of Institutional Living No Health Care Employee No History of Exposure to TB No History of Positive Chest X-Ray for TB No History of Positive TB Skin Test No Homeless No Known Immunosuppression No Recent Immigrant No Resident of Institutional Living No Bloody Sputum No Fatigue No Fever No Loss of Appetite No Night Sweats No Persistent Cough > 3 Weeks No Weight Loss No Pre-Op Patient Education NPO after midnight, No smoking after midnight, No jewelry, Responsible Republican, Aware of surgery location, Pre-op education done, 1 bottle CHG wash with instructions given, Instructed to take ordered medications, SSI prevention handout given SN - Preprocedure Comments Spoke with patient, Verbalizes/Nonverbally indicates understanding, Other: Metoprolol Barriers to Learning None evident Teaching Method Explanation, Printed materials Preferred Spoken Language Greenlandic Preferred Written Language Greenlandic Teaching Evaluation No further teaching needed Safety Brochure Information Reviewed Unable to complete [employer] Video Viewed No Information Given by Patient Patient's Current Physicians Patient's Current Physicians Discharge To, Anticipated Home independently Prev Test Positive/Diagnosis w/COVID-19 No Current Quarantine/Isolated any Illness No Any Contact with Sick Animals/Birds No Traveled Anywhere in Last 30 Days No Lost Weight Unintentionally Recently No Eat Poorly Due to Decreased Appetite No Total MST Score 0 N/A Personal Devices, Patient Valuables None Anesthesia/Transfusions Prior anesthesia Admission Note-Nursing Same Day Patient History 11/12/2023 6:14 EDT SN - Preop - CTm Pt in SDS Room 11/12/2023 6:14 . Assessment and Plan [place] [employer] Anesthesi[employer] (ASA) physical status classification: Class III. Anesthetic Preoperative Plan Premedication: intravenous. Anesthetic technique: General. Induction: intravenously. Maintenance airway: Oral endotracheal tube. Postoperative pain management: Per surgeon. Risks discussed: nausea, vomiting, sore throat. Informed consent: signed by patient. Digitally Signed by MINNIE GARCIA on 11/12/2023 07:59 AM [facility] 11-12-2023 Note Date of Service 11/12/2023 Chief Complaint Status post implantation of permanent spinal cord stimulator Subjective Seen and examined postop. Resting comfortably. Pain controlled. No complaints Objective Vitals and Measurements T: 36.6 C (Temporal Artery) HR: 76(Apical) RR: 13 BP: 125/75 SpO2: 96% HT: 180.34 cm WT: 82.27 kg Intake and Output 7AM Yesterday to 7AM Today Intake and Output (Last 24 hours) Intake Output Total Summary Total Intake 0.00 Total Output 0.00 Fluid Balance 0.00 Physical Exam A&O, NAD NCAT, EOMI Regular rate and rhythm Clear to auscultation bilaterally Abdomen soft and nontender Dressings clean dry and intact Extremities: Sensation and motor intact grossly without focal deficit. Pulses and reflexes are normal and symmetric Weight Dosing Weight: 82.27 kg (11/12/23) Medications Medications (2) Active Scheduled: (1) ceFAZolin 2 gram(s), IV Piggyback, PREOP pharm Continuous: (1) Lactated Ringers Infusion 1000 mL 1,000 mL, Intravenous, 20 mL/hr PRN: (0) Lab Results No 36 Hour Lab Data EKG No qualifying data available. Assessment/Plan Orders: ceFAZolin, Start: 11/12/23 6:00:00 EDT, Dose= 2 gram(s), IV Piggyback, PREOP pharm, 18 hour(s), Stop date 11/12/23 23:59:00 EDT, Rate: 200 mL/hr, Infuse over: 30 minute(s), 100 mL Lactated Ringers Infusion 1000 mL, Start: 11/12/23 6:21:00 EDT, Rate: 20 mL/hr, 11/12/23 6:21:00 EDT Blood Glucose Monitoring POC IV Catheter Insertion/Care NPO Prn Adapter Sequential Compression Device Application Skin Prep/Scrub Vital Signs Okay to admit See orders Discharge planning, likely home tomorrow Digitally Signed by JESS COY DO on 11/13/2023 08:16 AM [facility] 07-25-2023 Evaluation + Plan note Future Appointments Future Scheduled TestsLipid Profile 07/25/23Complete Metabolic Panel 07/25/23NM Myocardial Spect Rest/Stress 07/25/23 [facility] 07-25-2023 Evaluation + Plan note Future Scheduled TestsLipid Profile 07/25/23Complete Metabolic Panel 07/25/23NM Myocardial Spect Rest/Stress 07/25/23 [facility] Evaluation note Diagnosis Right shoulder pain, unspecified chronicity documented in this encounter [facility] Work Phone: Evaluation note* Diagnosis Right shoulder pain, unspecified chronicity Right shoulder pain, unspecified chronicity documented in this encounter [facility] Work Phone: Evaluation note* Diagnosis Right shoulder pain, unspecified chronicity Right shoulder pain, unspecified chronicity Nicotine dependence with current use- Primary Cigarette smoker Tobacco use disorder Primary hypertension Unspecified essential hypertension Type 2 diabetes mellitus with hyperglycemia, without long-term current use of insulin Major depressive disorder with single episode, in partial remission Coronary artery disease involving coronary bypass graft of [place] heart without angina pectoris documented in this encounter [facility] Work Phone: Hospital course Narrative No data available for this section [facility] Discharge instructions No data available for this section [facility] Progress note No data available for this section [facility] Summary Purpose Family History No Family History Records FoundNo Family History Records Found No data available for this section No data available for this section No Family History Records FoundNo Family History Records FoundNo Family History Records FoundNo Family History Records FoundNo Family History Records Found Advance Directives No Advanced Directives Records FoundNo Advanced Directives Records FoundNo Advanced Directives Records FoundNo Advanced Directives Records FoundNo Advanced Directives Records FoundNo Advanced Directives Records FoundNo Advanced Directives Records Found Additional Source Comments (unrecognized sect ion and content) No Status Records FoundNo Status Records FoundNo Status Records FoundNo Status Records FoundNo Status Records FoundNo Status Records FoundNo Status Records Found INFORMATION SOURCE (unrecogn ized section and content) DATE CREATED AUTHOR 04/22/2020 [facility] DATE CREATED AUTHOR AUTHOR'S ORGANIZ ATION 07/29/2021 [facility] DATE CREATED AUTHOR AUTHOR'S ORGANIZ ATION 12/04/2023 [facility] [place] DATE CREATED AUTHOR AUTHOR'S ORGANIZ ATION 01/04/2024 [facility] DATE CREATED AUTHOR AUTHOR'S ORGANIZ ATION 12/10/2024 [facility] DATE CREATED AUTHOR AUTHOR'S ORGANIZ ATION 12/29/2024 [facility] DATE CREATED AUTHOR AUTHOR'S ORGANIZ ATION 01/28/2025 [facility] Patient Care team informatio n (unrecognized section and content) Travel Agency Manager Relationship Specialty Start Date End Date Thony Chavez MD [address] [facility], [place] [id number] PCP - General Family Medicine 02/15/25 Reason for Visit (unrecogniz ed section and content) Reason Comments New Patient Visit X-RAYS 10-05-24DOI END SeptemberPAIN RATE 5 New Patient Visit CERVICAL PAIN X-RAYS 10-05-24PAIN RATE 5DOI END OF SEPTEMBER Reason Comments Follow-up Pain Reason Comments Establish Care FOR RECORDS PERTAINING TO PATIENTS WHO ARE OR HAVE BEEN ENROLLED IN A CHEMICAL DEPENDENCY/SUBSTANCEABUSE PROGRAM, SOME INFORMATION MAY BE OMITTED. This clinical summary was aggregated from multiple sources. Caution should be exercised in using it in the provision of clinical care. This summary normalizes information from multiple sources, and as a consequence, information in this document may materially change the coding, format and clinical context of patient data. In addition, data may be omitted in some cases. CLINICAL DECISIONS SHOULD BE BASED ON THE PRIMARY CLINICAL RECORDS. [facility]. provides no warranty or guarantee of the accuracy or completeness of information in this document.
== END | disposition home or self-care (01) ==
PROVIDERS: PCP Family Medicine; Referring Provider Anesthesiology; Visit Provider Anesthesiology
DX: M47.812 Spondylosis without myelopathy or radiculopathy, cervical region (principal)
CPT/HCPCS: 72040

== ENCOUNTER → 2025-05-10 | Outpatient (CLI) | payer BC, SELFPAY ==
--- NOTE | 2025-05-10 14:28 | MRI_ITS ---
PROCEDURE: MRI/Spine Cervical (Routine)
--- NOTE | 2025-05-10 14:29 | MRI_ITS ---
PROCEDURE: MRI/Spine Lumbar (Routine)
== END | disposition home or self-care (01) ==
LOC: MRI 14:14
PROVIDERS: PCP Family Medicine; Referring Provider Anesthesiology; Visit Provider Anesthesiology
DX: M47.812 Spondylosis without myelopathy or radiculopathy, cervical region (principal); M54.16 Radiculopathy, lumbar region
CPT/HCPCS: 72141; 72148

== ENCOUNTER → 2025-05-16 | Outpatient (CLI) | payer BC, SELFPAY ==
--- NOTE | 2025-05-16 11:00 | RAD_ITS ---
EXAM: XR Lumbosacral Spine, 4 or 5 Views CLINICAL INDICATION: LUMBAR RADICULOPATHY TECHNIQUE: Frontal, lateral and bilateral oblique views of the lumbar spine. COMPARISON: No relevant prior studies available. FINDINGS: VERTEBRAE: Moderate facet arthropathy of L4-S1. Mild endplate degenerative changes of the visualized spine. Normal alignment. No acute fracture or significant dynamic instability. SACRUM/COCCYX: Unremarkable as visualized. No acute fracture. DISC SPACES: No acute findings. No significant narrowing. SOFT TISSUES: Unremarkable. RAD/L/S Spine Min 4 Views IMPRESSION: Degenerative changes as above. Reading Location: [id number]
== END | disposition home or self-care (01) ==
PROVIDERS: PCP Family Medicine; Referring Provider Anesthesiology; Visit Provider Anesthesiology
DX: M54.16 Radiculopathy, lumbar region (principal)
CPT/HCPCS: 72110

== ENCOUNTER 2025-06-21 15:51 | Observation (INO) | payer BC, MEDICARE, SELFPAY ==
--- NOTE | 2025-06-17 15:34 | PAT.ANE_ITS ---
Pre-Assessment Diagnosis/Proposed Procedure Planned Operative Procedure(s): ANTERIOR CERVICAL DISC FUSION C3-4,C4-5,C5-6 Anesthesia History Anesthesia History - service support representative: Anesthesia History - service support representative Hx Hospitalization No 06/17/25 10:56 Any Problems With Anesthesia No 06/17/25 10:56 Cholinesterase deficiency You/Your Family Experience No 06/17/25 10:56 fever (hyperthermia) with Relationship Recent Exposure to Contagious Disease Does patient have nerve Yes: KNOWS TO TURN OFF 06/17/25 10:56 stimulator Patient instructed to have device shut off --Does patient have Pacemaker or ICD? When Was Last Pacemaker Check QUESTION #4 FULL TEXT: You/Your Family Experience fever (hyperthermia) with Anesthesia Last Oral Intake Last Oral intake: Last Oral Intake NPO since Meds taken in AM with sips of water? Meds patient instructed to take am of surgery PONV PONV - service support representative: PONV - service support representative Female No 06/17/25 10:56 HX of Motion Sickness No 06/17/25 10:56 HX of N/V After Surgery No 06/17/25 10:56 Non-Smoker Yes 06/17/25 10:56 Duration of Surgery greater Yes 06/17/25 10:56 than 60 minutes Number of Risk Factors 2 06/17/25 10:56 PONV Score Moderate Risk 06/17/25 10:56 Height & Weight Height & Weight: Anesthesia: Height & Weight Height 5 ft 11 in 05/16/25 15:10 Respiratory Assessment Respiratory Assessment - service support representative: Respiratory Tract Infection Hx - service support representative Hx Respiratory Tract Infection STOP Sleep Apnea STOP Sleep Apnea - service support representative: STOP Sleep Apnea - service support representative Hx Hypertension No 06/17/25 10:56 Hx Sleep Apnea No 06/17/25 10:56 CPAP BIPAP Do you snore loudly (louder Yes 06/17/25 10:56 than talking or can be heard Do you often feel tired/ Yes 06/17/25 10:56 fatigued/ sleepy during daytime? Has anyone observed you stop No 06/17/25 10:56 breathing during sleep? STOP Results Positive 06/17/25 10:56 QUESTION #5 FULL TEXT : Do you snore loudly (louder than talking or can be heard through closed doors)? Tobacco Use History Tobacco Use History - service support representative: Tobacco Use History - service support representative Tobacco Use Smoking Status Current every day smoker 06/17/25 10:56 Hx Tobacco Use Yes 06/17/25 10:56 Years Smoking Packs Smoked per Day Smoking Cessation Date was within the last 15 years Hx Smoking Cessation Date Hx Smoking Cessation Counseling Hematologic Medial History Hematologic Hx - service support representative: Hematologic Medical Hx - documentation consultant Hx of Blood Transfusion No 06/17/25 10:56 Hx of Transfusion in last 3 No 06/17/25 10:56 Months Date of Last Transfusion (if within last 3 months) Ever experience any problems No 06/17/25 10:56 with transfusion(s)? Specify any problems Hx of Preganancy in last 3 N/A 06/17/25 10:56 Months Nurse Filling Out Transfusion DSCHRIBER 06/17/25 10:56 & Questions: Date: 06/17/25 06/17/25 10:56 Time: 10:58 06/17/25 10:56 Patient unable to answer at this time (ie. confused, unrespo /Reproduction History /Reproductive History - service support representative: /Reproductive Hx- service support representative Hx Now No 06/17/25 10:56 Gestational Age (in weeks): EDC: Hx Hx Para Hx Section SAB No 06/17/25 10:56 Does the father of the baby or his family experience fever w Father of the baby Malignant Hypertension history comment [facility] Medical History Wears glasses Depression Anxiety Bruising History of steroid therapy Diabetes Uses wheelchair Arthritis High cholesterol Injury of back Injury of head and neck Syncope Dietary restriction Smoker Shortness of breath on exertion History of pain when walking History of echocardiogram History of stress test Cardiology follow-up encounter History of heart attack Cervical stenosis of spinal canal Cervical myelopathy Home Medications ?Medication ?Instructions ?Recorded ?Last Taken ?Type acetaminophen 325 mg tablet 325 mg PO Q6H PRN pain 04/30 Unknown History (Tylenol) celecoxib 100 mg capsule 100 mg PO BID PRN pain 05/16 Unknown History docusate sodium 50 mg capsule 50 mg PO BID 05/16/25 Un known History glimepiride 4 mg tablet 4 mg PO DAILY DIABETES 05/16 Unknown History metformin 1,000 mg tablet 2,000 mg PO QDAY 05/16/25 Un known History metoprolol tartrate 25 mg tablet 25 mg PO BID 05/16/25 Unknown History naproxen sodium 220 mg tablet 220 mg PO Q8H PRN pain 1 07/16/24 Unknown History (Aleve) pregabalin 300 mg capsule 300 mg PO BID 05/16/25 Unkno wn History rosuvastatin 40 mg tablet 40 mg PO QHS 05/16/25 Unknow n History aspirin 81 mg tablet,delayed 81 mg PO DAILY 06/17/25 1 08/18/24 History release (Adult Aspirin Regimen) insulin glargine 100 unit/mL (3 10 unit subcut QHS PRN DIABETES 06/17/25 Unknown History mL) subcutaneous pen (Lantus Solostar U-100 Insulin) tirzepatide 2.5 mg/0.5 mL 2.5 mg subcut TU 06/17/25 History subcutaneous pen injector (Mounjaro) Allergy/AdvReac Type Severity Reaction Status Date / Time semaglutide (From Ozempic) AdvReac Nausea/Vom/ Verified 06/17/25 13:53 Diarrhea varenicline (From Chantix) AdvReac Nausea/Vom/ Verified 06/17/25 13:53 Diarrhea Family History Father Diabetes Heart disease Surgical History History of cardiac catheterization History of insertion of nerve stimulator History of tonsillectomy and adenoidectomy Hx of eye surgery Hx of right cataract extraction Hx of left cataract extraction History of heart bypass surgery Social History household members: spouse Smoking Status: Current every day smoker tobacco type: cigarettes alcohol intake: current alcohol intake frequency: a few times a month Audit: Pertinent Findings Pertinent Findings EKG Perinent findings: 03/04/2025. Normal sinus rhythm 84 bpm. Right bundle branch block. Inferior infarct, age undetermined. Echo (EF%) pertinent findings: 08/12/2023. EF 50 to 55%. Hypokinesis to akinesis mid and distal anterior septal and apical patricio. PA pressure 27. Consult pertinent findings: 03/04/2025 cardiac Dx assessment coronary artery disease status post CABG 2014. EKG with right bundle branch block. Old inferior infarct. Continue current medications. Hypertension controlled. Keep current medications. Diabetes controlled by primary care physician. No further testing recommended. Per notes. EF 40 to 45% in 2014. 1999 50 to 55% EF. Recommendation Anesthesia Recommendation Anesthesia recommendation: OPTIMIZED for anesthesia
[2025-06-17 16:56] LABS: Hematocrit 48.7 % (40-54); Hemoglobin 16.6 g/dL (13.0-16.5); Immature Granulocytes Count 0.040 X10^3/uL (0.0-0.0); Mean Corp Hgb Conc 34.1 g/dL (32-36); Mean Corpuscular Volume 88.1 fL (80-94); Mean Platelet Vol. 11.9 fl (6.2-12.0); NRBC Flagged by Analyzer 0 % (0-5); Platelet Count 280 K/mm3 (150-450); RBC Distribution Width CV 13.2 % (11.6-14.6); RBC Distribution Width SD 42.8 fl (35.1-43.9); Red Blood Count 5.53 M/mm3 (4.6-6.2); White Blood Count 12.3 K/mm3 (4.4-11.0)
[2025-06-17 17:51] LABS: Anion Gap 16 (5-15); BUN 21 mg/dL (4-19); BUN/Creat Ratio 24.4 RATIO (10-20); Calcium,Total 9.8 mg/dL (7.6-11.0); Carbon Dioxide 22.1 mmol/L (21.0-32.0); Chloride 100 mmol/L (98-108); Glucose 133 mg/dL (70-99); Potassium 4.6 mmol/L (3.3-5.1)
[2025-06-17 18:13] LABS: Magnesium 2.3 mg/dL (1.5-2.2)
--- NOTE | 2025-06-20 17:36 | PAT.ANESEVAL ---
Pre-Assessment Diagnosis/Proposed Procedure Planned Operative Procedure(s): ANTERIOR CERVICAL DISC FUSION C3-4,C4-5,C5-6 Anesthesia History Anesthesia History - ceo & founder: Anesthesia History - ceo & founder Hx Hospitalization No 06/17/25 10:56 Any Problems With Anesthesia No 06/17/25 10:56 Cholinesterase deficiency You/Your Family Experience No 06/17/25 10:56 fever (hyperthermia) with Relationship Recent Exposure to Contagious Disease Does patient have nerve Yes: KNOWS TO TURN OFF 06/17/25 10:56 stimulator Patient instructed to have device shut off --Does patient have Pacemaker or ICD? When Was Last Pacemaker Check QUESTION #4 FULL TEXT: You/Your Family Experience fever (hyperthermia) with Anesthesia Last Oral Intake Last Oral intake: Last Oral Intake NPO since Meds taken in AM with sips of water? Meds patient instructed to take am of surgery PONV PONV - ceo & founder: PONV - ceo & founder Female No 06/17/25 10:56 HX of Motion Sickness No 06/17/25 10:56 HX of N/V After Surgery No 06/17/25 10:56 Non-Smoker Yes 06/17/25 10:56 Duration of Surgery greater Yes 06/17/25 10:56 than 60 minutes Number of Risk Factors 2 06/17/25 10:56 PONV Score Moderate Risk 06/17/25 10:56 Height & Weight Height & Weight: Anesthesia: Height & Weight Height 5 ft 11 in 05/16/25 15:10 Respiratory Assessment Respiratory Assessment - ceo & founder: Respiratory Tract Infection Hx - ceo & founder Hx Respiratory Tract Infection STOP Sleep Apnea STOP Sleep Apnea - ceo & founder: STOP Sleep Apnea - ceo & founder Hx Hypertension No 06/17/25 10:56 Hx Sleep Apnea No 06/17/25 10:56 CPAP BIPAP Do you snore loudly (louder Yes 06/17/25 10:56 than talking or can be heard Do you often feel tired/ Yes 06/17/25 10:56 fatigued/ sleepy during daytime? Has anyone observed you stop No 06/17/25 10:56 breathing during sleep? STOP Results Positive 06/17/25 10:56 QUESTION #5 FULL TEXT : Do you snore loudly (louder than talking or can be heard through closed doors)? Tobacco Use History Tobacco Use History - ceo & founder: Tobacco Use History - ceo & founder Tobacco Use Smoking Status Current every day smoker 06/17/25 10:56 Hx Tobacco Use Yes 06/17/25 10:56 Years Smoking Packs Smoked per Day Smoking Cessation Date was within the last 15 years Hx Smoking Cessation Date Hx Smoking Cessation Counseling Hematologic Medial History Hematologic Hx - ceo & founder: Hematologic Medical Hx - manager documentation Hx of Blood Transfusion No 06/17/25 10:56 Hx of Transfusion in last 3 No 06/17/25 10:56 Months Date of Last Transfusion (if within last 3 months) Ever experience any problems No 06/17/25 10:56 with transfusion(s)? Specify any problems Hx of Preganancy in last 3 N/A 06/17/25 10:56 Months Nurse Filling Out Transfusion DSCHRIBER 06/17/25 10:56 & Questions: Date: 06/17/25 06/17/25 10:56 Time: 10:58 06/17/25 10:56 Patient unable to answer at this time (ie. confused, unrespo /Reproduction History /Reproductive History - ceo & founder: /Reproductive Hx- ceo & founder Hx Now No 06/17/25 10:56 Gestational Age (in weeks): EDC: Hx Hx Para Hx Section SAB No 06/17/25 10:56 Does the father of the baby or his family experience fever w Father of the baby Malignant Hypertension history comment Active Medications Active Medications: Current Medications Generic Name Dose Route Start Last Admin Trade Name Freq PRN Reason Stop Dose Admin Acetaminophen 1,000 mg 06/21/25 12:00 Acetaminophen 500 Mg Tablet PO 06/21/25 12:01 PREOP ONE Dexamethasone Sodium Phosphate 8 mg 06/21/25 12:00 Dexamethasone 10 Mg/Ml Vial IV 06/21/25 12:01 INTRAOP ONE Dexamethasone Sodium Phosphate 4 mg 06/21/25 12:00 Dexamethasone 4 Mg/Ml Vial IV 06/21/25 12:01 POSTOP ONE Cefazolin Sodium 2 gm/ Sodium 110 mls @ 150 mls/hr 06/21/25 12:00 Chloride IV 06/21/25 12:43 INTRAOP ONE Tranexamic Acid 1,000 mg/ 110 mls @ 440 mls/hr 06/21/25 12:00 Sodium Chloride IV 06/21/25 12:14 INTRAOP ONE Tranexamic Acid 1,000 mg/ 110 mls @ 440 mls/hr 12/16/25 12:00 Sodium Chloride IV 06/21/25 12:14 INTRAOP ONE Insulin Human Lispro 1 - 6 unit 06/21/25 12:00 Insulin Lispro 100 Unit/Ml Insuln.Pen SC 06/21/25 18:00 Q4H PRN PRN BG>/= 180, SEE PROTOCOL Protocol PFSH Medical History Wears glasses Depression Anxiety Bruising History of steroid therapy Diabetes Uses wheelchair Arthritis High cholesterol Injury of back Injury of head and neck Syncope Dietary restriction Smoker Shortness of breath on exertion History of pain when walking History of echocardiogram History of stress test Cardiology follow-up encounter History of heart attack Cervical stenosis of spinal canal Cervical myelopathy Home Medications ?Medication ?Instructions ?Recorded ?Last Taken ?Type acetaminophen 325 mg tablet 325 mg PO Q6H PRN pain 05/16/25 Unknown History (Tylenol) celecoxib 100 mg capsule 100 mg PO BID PRN pain 05/16/25 Unknown History docusate sodium 50 mg capsule 50 mg PO BID 05/16/25 Unknown History glimepiride 4 mg tablet 4 mg PO DAILY DIABETES 05/16/25 Unknown History metformin 1,000 mg tablet 2,000 mg PO QDAY 05/16/25 Unknown History metoprolol tartrate 25 mg tablet 25 mg PO BID 05/16/25 Unknown History naproxen sodium 220 mg tablet 220 mg PO Q8H PRN pain 05/16/25 Unknown History (Aleve) pregabalin 300 mg capsule 300 mg PO BID 05/16/25 Unknown History rosuvastatin 40 mg tablet 40 mg PO QHS 05/16/25 Unknown History aspirin 81 mg tablet,delayed 81 mg PO DAILY 06/17/25 06/17/25 History release (Adult Aspirin Regimen) insulin glargine 100 unit/mL (3 10 unit subcut QHS PRN DIABETES 06/17/25 Unknown History mL) subcutaneous pen (Lantus Solostar U-100 Insulin) tirzepatide 2.5 mg/0.5 mL 2.5 mg subcut TU 06/17/25 06/14/25 History subcutaneous pen injector (Fiorellaro) Allergy/AdvReac Type Severity Reaction Status Date / Time semaglutide (From Ozempic) AdvReac Nausea/Vom/ Verified 06/17/25 13:53 Diarrhea varenicline (From Chantix) AdvReac Nausea/Vom/ Verified 06/17/25 13:53 Diarrhea Family History Father Diabetes Heart disease Surgical History History of cardiac catheterization History of insertion of nerve stimulator History of tonsillectomy and adenoidectomy Hx of eye surgery Hx of right cataract extraction Hx of left cataract extraction History of heart bypass surgery Social History household members: spouse Smoking Status: Current every day smoker tobacco type: cigarettes alcohol intake: current alcohol intake frequency: a few times a month Audit: Pertinent Findings HISTORY of Pertinent Findings History of Pertinent Findings: EKG Pertinent Findings EKG Perinent findings 03/04/2025. Normal sinus 06/17/25 15:36 rhythm 84 bpm. Right bundle branch block. Inferior infarct, age undetermined. Echo Pertinent Findings Echo (EF%) pertinent findings 08/12/2023. EF 50 to 55%. 06/17/25 15:38 Hypokinesis to akinesis mid and distal anterior septal and apical patricio. PA pressure 27. Consult Pertinent Findings Consult pertinent findings 03/04/2025 cardiac Dx 06/17/25 15:38 assessment coronary artery disease status post CABG 2014. EKG with right bundle branch block. Old inferior infarct. Continue current medications. Hypertension controlled. Keep current medications. Diabetes controlled by primary care physician. No further testing recommended. Per notes. EF 40 to 45% in 2014 . 1999 50 to 55% EF. Pertinent Findings Additional pertinent findings: June 17, 2025. Hemoglobin A1c is 9.3. Recommendation Anesthesia Recommendation Anesthesia recommendation: OPTIMIZED for anesthesia (Please let Dr. Serra's office know that the patient's A1c is 9.3. Elevated hemoglobin A1c's are associated with poor wound healing and increased risk of infection.)
[2025-06-21] VITALS (15 sets, daily range): BP systolic 129–162; BP diastolic 79–99; PULSE 81–99; RESP 16–17; TEMP 36.2–37.2; O2SAT 93–99; BMI 24.5; BMI 25.7
--- NOTE | 2025-06-21 10:23 | PCM.PRE.AN2 ---
ASA Classification* ASA Classification ASA Classification: 3 Assessment & Plan Anesthesia* Anesthesia Assessment Anesthesia Assessment: Discussed sedation and/or anesthesia options, risks, benefits, and alternatives with patient/parents/legal guardian/POA. Questions invited. The patient/parents/legal guardian/POA seems to understand and agrees to proceed with anesthesia plan. Reviewed the physical assessment, medical history, allergy history and patient home medications list prior to surgery/procedure/anesthetic and documented any changes. Performed airway and anesthesia risk assessments. Anesthesia Type Anesthesia Type: General Anesthesia Focused Assessment* Airway Assessment Mouth opens: 2 cm Mallampati Score: II Labs Anesthesia Preop lab: CBC WBC, (4.4-11.0) 12.3 K/mm3 H 06/17/25, 15:40 RBC, (4.6-6.2) 5.53 M/mm3 06/17/25, 15:40 Hgb, (13.0-16.5) 16.6 g/dL H 06/17/25, 15:40 Hct, (40-54) 48.7 % 06/17/25, 15:40 Plt Count, (150-450) 280 K/mm3 06/17/25, 15:40 CHEMISTRY Potassium, (3.3-5.1) 4.6 mmol/L 06/17/25, 15:40 Sodium, (133-145) 138 mmol/L 06/17/25, 15:40 Magnesium, (1.5-2.2) 2.3 mg/dL H 06/17/25, 15:39 BUN, (4-19) 21 mg/dL H 06/17/25, 15:40 Creatinine, (0.70-1.20) 0.88 mg/dL 06/17/25, 15:40 Glucose, (70-99) 133 mg/dL H 06/17/25, 15:40 COAG Pre-Assessment Diagnosis/Proposed Procedure Planned Operative Procedure(s): ANTERIOR CERVICAL DISC FUSION C3-4,C4-5,C5-6 Anesthesia History Anesthesia History - community relations assistant: Anesthesia History - community relations assistant Hx Hospitalization No 06/17/25 10:56 Any Problems With Anesthesia No 06/17/25 10:56 Cholinesterase deficiency You/Your Family Experience No 06/17/25 10:56 fever (hyperthermia) with Relationship Recent Exposure to Contagious Disease Does patient have nerve Yes: KNOWS TO TURN OFF 06/17/25 10:56 stimulator Patient instructed to have device shut off --Does patient have Pacemaker or ICD? When Was Last Pacemaker Check QUESTION #4 FULL TEXT: You/Your Family Experience fever (hyperthermia) with Anesthesia Last Oral Intake Last Oral intake: Last Oral Intake NPO since Meds taken in AM with sips of water? Meds patient instructed to take am of surgery PONV PONV - community relations assistant: PONV - community relations assistant Female No 06/17/25 10:56 HX of Motion Sickness No 06/17/25 10:56 HX of N/V After Surgery No 06/17/25 10:56 Non-Smoker Yes 06/17/25 10:56 Duration of Surgery greater Yes 06/17/25 10:56 than 60 minutes Number of Risk Factors 2 06/17/25 10:56 PONV Score Moderate Risk 06/17/25 10:56 Height & Weight Height & Weight: Anesthesia: Height & Weight Height 5 ft 11 in 06/17/25 13:49 Respiratory Assessment Respiratory Assessment - community relations assistant: Respiratory Tract Infection Hx - community relations assistant Hx Respiratory Tract Infection STOP Sleep Apnea STOP Sleep Apnea - community relations assistant: STOP Sleep Apnea - community relations assistant Hx Hypertension No 06/17/25 10:56 Hx Sleep Apnea No 06/17/25 10:56 CPAP BIPAP Do you snore loudly (louder Yes 06/17/25 10:56 than talking or can be heard Do you often feel tired/ Yes 06/17/25 10:56 fatigued/ sleepy during daytime? Has anyone observed you stop No 06/17/25 10:56 breathing during sleep? STOP Results Positive 06/17/25 10:56 QUESTION #5 FULL TEXT : Do you snore loudly (louder than talking or can be heard through closed doors)? Tobacco Use History Tobacco Use History - community relations assistant: Tobacco Use History - community relations assistant Tobacco Use Smoking Status Current every day smoker 06/17/25 10:56 Hx Tobacco Use Yes 06/17/25 10:56 Years Smoking Packs Smoked per Day Smoking Cessation Date was within the last 15 years Hx Smoking Cessation Date Hx Smoking Cessation Counseling Hematologic Medial History Hematologic Hx - community relations assistant: Hematologic Medical Hx - paving block cutter Hx of Blood Transfusion No 06/17/25 10:56 Hx of Transfusion in last 3 No 06/17/25 10:56 Months Date of Last Transfusion (if within last 3 months) Ever experience any problems No 06/17/25 10:56 with transfusion(s)? Specify any problems Hx of Preganancy in last 3 N/A 06/17/25 10:56 Months Nurse Filling Out Transfusion DSCHRIBER 06/17/25 10:56 & Questions: Date: 06/17/25 06/17/25 10:56 Time: 10:58 06/17/25 10:56 Patient unable to answer at this time (ie. confused, unrespo /Reproduction History /Reproductive History - community relations assistant: /Reproductive Hx- community relations assistant Hx Now No 06/17/25 10:56 Gestational Age (in weeks): EDC: Hx Hx Para Hx Section SAB No 06/17/25 10:56 Does the father of the baby or his family experience fever w Father of the baby Malignant Hypertension history comment Active Medications Active Medications: Current Medications Generic Name Dose Route Start Last Admin Trade Name Freq PRN Reason Stop Dose Admin Acetaminophen 1,000 mg 06/21/25 12:00 Acetaminophen 500 Mg Tablet PO 06/21/25 12:01 PREOP ONE Dexamethasone Sodium Phosphate 8 mg 06/21/25 12:00 Dexamethasone 10 Mg/Ml Vial IV 06/21/25 12:01 INTRAOP ONE Dexamethasone Sodium Phosphate 4 mg 06/21/25 12:00 Dexamethasone 4 Mg/Ml Vial IV 06/21/25 12:01 POSTOP ONE Cefazolin Sodium 2 gm/ Sodium 110 mls @ 150 mls/hr 06/21/25 12:00 Chloride IV 06/21/25 12:43 INTRAOP ONE Tranexamic Acid 1,000 mg/ 110 mls @ 440 mls/hr 06/21/25 12:00 Sodium Chloride IV 06/21/25 12:14 INTRAOP ONE Tranexamic Acid 1,000 mg/ 110 mls @ 440 mls/hr 06/21/25 12:00 Sodium Chloride IV 06/21/25 12:14 INTRAOP ONE Lactated Ringer's 1,000 mls @ 15 mls/hr 06/21/25 10:15 IV .Q48H [id number] Insulin Human Lispro 1 - 6 unit 06/21/25 12:00 Insulin Lispro 100 Unit/Ml Insuln.Pen SC 06/21/25 18:00 Q4H PRN PRN BG>/= 180, SEE PROTOCOL Protocol PFSH Medical History Wears glasses Depression Anxiety Bruising History of steroid therapy Diabetes Uses wheelchair Arthritis High cholesterol Injury of back Injury of head and neck Syncope Dietary restriction Smoker Shortness of breath on exertion History of pain when walking History of echocardiogram History of stress test Cardiology follow-up encounter History of heart attack Cervical stenosis of spinal canal Cervical myelopathy Home Medications ?Medication ?Instructions ?Recorded ?Last Taken ?Type acetaminophen 325 mg tablet 325 mg PO Q6H PRN pain 05/16/25 Unknown History (Tylenol) celecoxib 100 mg capsule 100 mg PO BID PRN pain 05/16/25 Unknown History docusate sodium 50 mg capsule 50 mg PO BID 05/16/25 Unknown History glimepiride 4 mg tablet 4 mg PO DAILY DIABETES 05/16/25 Unknown History metformin 1,000 mg tablet 2,000 mg PO QDAY 05/16/25 Unknown History metoprolol tartrate 25 mg tablet 25 mg PO BID 05/16/25 06/21/25 06:00 History naproxen sodium 220 mg tablet 220 mg PO Q8H PRN pain 05/16/25 Unknown History (Aleve) pregabalin 300 mg capsule 300 mg PO BID 05/16/25 Unknown History rosuvastatin 40 mg tablet 40 mg PO QHS 05/16/25 Unknown History aspirin 81 mg tablet,delayed 81 mg PO DAILY 06/17/25 06/17/25 History release (Adult Aspirin Regimen) insulin glargine 100 unit/mL (3 10 unit subcut QHS PRN DIABETES 06/17/25 Unknown History mL) subcutaneous pen (Lantus Solostar U-100 Insulin) tirzepatide 2.5 mg/0.5 mL 2.5 mg subcut TU 06/17/25 06/14/25 History subcutaneous pen injector (Zane) Allergy/AdvReac Type Severity Reaction Status Date / Time semaglutide (From Ozempic) AdvReac Nausea/Vom/ Verified 06/21/25 10:18 Diarrhea varenicline (From Chantix) AdvReac Nausea/Vom/ Verified 06/21/25 10:18 Diarrhea Family History Father Diabetes Heart disease Surgical History History of cardiac catheterization History of insertion of nerve stimulator History of tonsillectomy and adenoidectomy Hx of eye surgery Hx of right cataract extraction Hx of left cataract extraction History of heart bypass surgery Social History household members: spouse Smoking Status: Current every day smoker tobacco type: cigarettes alcohol intake: current alcohol intake frequency: a few times a month Review of Systems (Anesthesia) ROS Narrative System reviewed and no additional complaints, except as documented.
[2025-06-21] MEDS: Lactated Ringers 1,000 ML 15 ML IV (10:28)
--- NOTE | 2025-06-21 11:00 | RAD_ITS ---
PROCEDURE: CERV SPINE 2 OR 3 VIEWS 06/21/2025 REASON FOR EXAM: ERAS, ANTERIOR CERVICAL FUSION C3-4, C4-5, AND C5-6 TECHNIQUE: Procedure Code: RADSPCL Modality: DX Procedure: CERV SPINE 2 OR 3 VIEWS COMPARISON: None FINDINGS: Fluoro was provided. 23.5 seconds, 4.66 mGy, 7 images RAD/Cerv Spine 2 or 3 Views IMPRESSION: Fluoro was provided. Reading Location: [facility]
--- NOTE | 2025-06-21 12:11 | PCM.HP.BLA ---
History and Physical Date of Admission: 06/21/25 MR#: [id number] Acct: [id number] Name: MARILYN ROYAL Rep #: [id number] : 1960 Provider: Dr. Willi Serra MD Age/Sex: 64/M Location: [facility] [place] Status: Signed Intake Vital Signs 05/16/2515:10 06/17/2513:49 Height 5 ft 11 in 5 ft 11 in Weight: 196 lb 6 oz 175 lb BMI 27.3 24.4 Intake Visit Reasons: cervical spine Chief Complaint: Cervical/Lumbar Spine pre op Accompanied by: Is patient in pain?: Yes Pain scale (1-10): 8 Allergies semaglutide (From Ozempic) Adverse Reaction (Verified 06/17/25 13:53) Nausea/Vom/Diarrhea varenicline (From Chantix) Adverse Reaction (Verified 06/17/25 13:53) Nausea/Vom/Diarrhea Medications ?Medication ?Instructions ?Recorded ?Confirmed ?Type acetaminophen 325 mg tablet 325 mg PO Q6H PRN pain 05/16/25 06/17/25 History (Tylenol) celecoxib 100 mg capsule 100 mg PO BID PRN pain 05/16/25 06/17/25 History docusate sodium 50 mg capsule 50 mg PO BID 05/16/25 06/17/25 History glimepiride 4 mg tablet 4 mg PO DAILY DIABETES 05/16/25 06/17/25 History metformin 1,000 mg tablet 2,000 mg PO QDAY 05/16/25 06/17/25 History metoprolol tartrate 25 mg tablet 25 mg PO BID 05/16/25 06/17/25 History naproxen sodium 220 mg tablet 220 mg PO Q8H PRN pain 05/16/25 06/17/25 History (Aleve) pregabalin 300 mg capsule 300 mg PO BID 05/16/25 06/17/25 History rosuvastatin 40 mg tablet 40 mg PO QHS 05/16/25 06/17/25 History aspirin 81 mg tablet,delayed 81 mg PO DAILY 06/17/25 06/17/25 History release (Adult Aspirin Regimen) insulin glargine 100 unit/mL (3 10 unit subcut QHS PRN DIABETES 06/17/25 06/17/25 History mL) subcutaneous pen (Lantus Solostar U-100 Insulin) tirzepatide 2.5 mg/0.5 mL 2.5 mg subcut TU 06/17/25 06/17/25 History subcutaneous pen injector (Zane) Have you fallen in the past year?: Yes PFSH Medical History Wears glasses Depression Anxiety Bruising History of steroid therapy Diabetes Uses wheelchair Arthritis High cholesterol Injury of back Injury of head and neck Syncope Dietary restriction Smoker Shortness of breath on exertion History of pain when walking History of echocardiogram History of stress test Cardiology follow-up encounter History of heart attack Cervical stenosis of spinal canal Cervical myelopathy Surgical History History of cardiac catheterization History of insertion of nerve stimulator History of tonsillectomy and adenoidectomy Hx of eye surgery Hx of right cataract extraction Hx of left cataract extraction History of heart bypass surgery Family History Father Diabetes Heart disease Social History household members: spouse Smoking Status: Current every day smoker tobacco type: cigarettes alcohol intake: current alcohol intake frequency: a few times a month HPI cervical spine Details: This documentation accurately reflects the service provided and the decisions made by me, Dr. Willi Serra MD 06/17/25 [id number]. Part of today?s visit was documented by Sapna La MA, acting as scribe. MARILYN ROYAL is a 64 year old M here today for cervical spine pre op. Patient states that his pain is an 8 today. He would like to go over everything about the surgery. The patient is a 64 year old male presenting for a pre-operative consultation for an upcoming cervical spine surgery. He reports a significant decline in function over the last three weeks, starting shortly after his last visit. He is now unable to walk more than a couple of steps without falling and requires a wheelchair for mobility. He also describes his hand weakness as terrible, impacting his ability to hold utensils or perform simple tasks like opening an alcohol swab or a can of soda. The patient has a history of type 2 diabetes and uses a continuous glucose monitor, which shows an average glucose of 122 mg/dL over the last 24 days and an estimated HbA1c of 6.2%. His medications for diabetes include Mounjaro, metformin, and Crestor, which he has been taking for over 20 years. He has insulin available for fasting glucose levels over 140 mg/dL but has not needed to use it as his highest average has been 108 mg/dL. He took his last dose of Mounjaro last Friday, a week before the scheduled surgery. He has an unspecified heart condition for which he takes baby aspirin and is followed by a cosmetics and toiletries salesperson, Dr. Arevalo. He has been cleared for surgery by his cosmetics and toiletries salesperson based on a recent EKG. The patient is a current smoker but has reduced his consumption from a pack a day to approximately two packs a week. He also reports lumbar spine issues but his primary concern is his cervical spine. Attestation: Documentation on this patient encounter was supported using ambient scribe technology/ voice AI technology. The patient consented to recording for the purpose of documenting the encounter. Provider reviewed content of the generated note prior to signature. ROS ROS Narrative Review of Systems - Neurological: Reports inability to walk more than a few steps due to fall risk, with legs collapsing. - Reports severe hand weakness affecting activities of daily living. - Reports feeling cold sensation in his legs. - Musculoskeletal: Reports lumbar spine issues. - Constitutional: Denies other medical problems. Ortho Exam General General: Yes no acute distress Neurologic: Yes alert and Yes oriented x3 Psychologic: Yes reasonable and appropriate Exam Narrative Physical Exam - General: Patient is in a wheelchair. - Extremities: Legs are cold to touch bilaterally. - Neurological/Musculoskeletal: Right side is weaker than the left, noted in both upper and lower extremities. - Right hand is noted to be weaker. - Good strength on toe dorsiflexion and plantar flexion. - Strength testing performed for shoulder abduction, elbow flexion, knee extension, and hip flexion. weakness noted on right side during exam. - Neurological: Weakness more pronounced on the right side compared to the left. - Musculoskeletal: Decreased application support consultant strength, especially on the right side. Upper extremities show grade 3 power right upper extremity, grade 4 on the left, lower extremity show 4+ power bilaterally slightly weaker on the right. Knee reflexes are brisk. Nancy's is positive bilaterally. Romberg's is positive. Gait shows severe imbalance. Results - Labs: Estimated hemoglobin A1c is 6.2% based on continuous glucose monitor data. - Average daily glucose over the last 24 days is 122 mg/dL. - Tests and Diagnostics: EKG was performed and reviewed by cardiology, and is sufficient for surgical clearance. Coding Level of Care Code Off vis,est,level 4 Diagnoses Cervical myelopathy G95.9 Cervical stenosis of spinal canal M48.02 Additional Codes Intake - Is patient in pain?: Yes (1125F) Time Spent (min) 35 Assessment and Plan Assessment and Plan (1) Cervical myelopathy: Status: Acute (2) Cervical stenosis of spinal canal: Status: Acute Plan Assessment and Plan 1. Cervical Myelopathy - The patient demonstrates rapidly progressing myelopathic symptoms, including severe gait instability requiring a wheelchair and significant bilateral hand weakness, worse on the right side. - Examination confirms right-sided weakness. - The urgency of surgery due to functional decline is balanced against suboptimal risk factors. - Plan is to proceed with anterior cervical spine surgery on Friday, pending final clearances. - The procedure, post-operative course including the use of a hard collar and bone stimulator, and extensive surgical risks (infection, hematoma, dysphagia, nerve injury, pseudoarthrosis) were discussed in detail. - The patient's elevated risk due to diabetes and smoking was emphasized. - Postoperative disposition (home vs. rehab) will be determined by a physical therapy evaluation. 2. Type 2 Diabetes Mellitus - The patient's diabetes is a significant risk factor for post-operative complications, including infection and poor bone healing. - His Mounjaro has been appropriately held for one week prior to surgery. - Recent CGM data shows an estimated HbA1c of 6.2%, and formal labs are pending. - The patient was counseled on the importance of glycemic control for his surgical outcome. 3. Tobacco Use Disorder - The patient's smoking habit (currently ~2 packs/week) significantly increases his risk of poor bone fusion (pseudoarthrosis) and infection. - He has been strongly counseled to quit or continue reducing his smoking to improve his chances of a successful outcome. 4. Pre-operative Clearance - The patient has been cleared for surgery by his cosmetics and toiletries salesperson based on an EKG. - He stopped his baby aspirin last night and can restart it 48 hours after surgery. - Final medical, cardiac, and anesthesia clearances are pending. Patient Instructions - Your neck surgery is scheduled for this coming Friday, as long as all your doctors give the final okay. - You have correctly stopped taking your Mounjaro medication one week before surgery. - You can restart your daily baby aspirin two days after your surgery. - After surgery, you will have a hard plastic neck collar on, which you must wear for at least two weeks. - You may go home the day after surgery, or you may need to go to a rehab center for a while. A physical therapist will help make this decision with you to ensure you are safe. - It is very important to try to quit smoking and keep your blood sugar under control to help your body heal properly. - You cannot drive while you are wearing the neck collar. - Avoid heavy lifting and excessive twisting or bending of your neck for the first three months. - It is common to have a sore throat and trouble swallowing for a few days. Eating soft foods will help. - Sleeping with your head elevated, such as in a recliner or on extra pillows, can help reduce swelling in your neck. - You will be given a bone stimulator device to wear to help the bones in your neck fuse together. - Your follow-up appointment in the office will be in two weeks. MRI shows severe compression of the cervical spinal cord at C3-6 with cord signal changes. Surgery would be C3-6 ACDF to provide spinal cord decompression and halt the progression of myelopathy. Discussed this procedure in detail and explained the risks, benefits and alternatives. The risks of surgery include but are not limited to infection, bleeding, injury to nerves and vessels, hematoma formation, dysphagia, dysphonia, recurrent laryngeal nerve injury, Vinod syndrome, DVT, pulmonary embolism, pneumonia, atelectasis, cardiopulmonary event, pseudoarthrosis, hardware failure, adjacent segment degeneration, need for further surgery, nerve root injury, spinal cord injury. Answered all questions to the patient?s satisfaction. Patient understands and agrees to proceed with surgery. Consent was signed.Follow up 2 weeks post operatively or sooner if pain, swelling, numbness or associated symptoms, or concerns develop.All questions answered. Patient in agreement of plan.
[2025-06-21] MEDS: Cefazolin 1 GM/5 ML Vial 2 GM IV (12:25)
[2025-06-21] MEDS: Lidocaine 1% (5 ml sdv) 5 ML Vial 10 ML IV (12:30)
[2025-06-21] MEDS: fentaNYL 100 MCG/2 ML Ampul IV (12:39)
[2025-06-21] MEDS: REMIFENTANIL HCL 1 MG VIAL 1.5 MG IV (14:06)
[2025-06-21] MEDS: TRANEXAMIC ACID 1,000 MG/10 ML ML 2000 MG IV (14:59)
--- NOTE | 2025-06-21 15:46 | PCM.OPRPT ---
Procedures Musculoskeletal [id number]-[id number]: Other Procedure See Report Operative Report (Standard) Operative Information Date of Procedure: 06/21/25 Pre-Operative Diagnosis: C3-6 disc degeneration with stenosis, cord compression with cord signal changes, severe progressive myelopathy Post-Operative Diagnosis: Same Surgery/Procedure Performed: C3-6 ACDF senior visual designer: Yes Practical Nurse: Almaz Tran Tasks completed by graduate assistant athletic trainer: Closing, Removing tissue, Implanting device, Hemostasis: Electrocautery and Retracting Type of Anesthesia: General RN Documented Start/Stop Times: Operation Date: 06/21/25 12:00 Case Time Into Pre-Op 06/21/25 10:01 Out of Pre-Op 06/21/25 12:18 Anesthesia Start 06/21/25 12:24 Into Room 06/21/25 12:24 Procedure Start 06/21/25 13:01 Procedure End 06/21/25 15:35 Anesthesia End 06/21/25 15:41 Out of Room 06/21/25 15:41 Procedure Start Time: 13:01 Procedure Stop Time: 15:35 Select all DRAINS/GRAFTS/IMPLANTS that apply: Drains Drain details: [place] , Graft Graft details: Structural allograft corticocancellous strut and Implanted device Implanted device details: Medtronic Monona Elite plate instrumentation Estimated Blood Loss: 50 cc Specimen collected: No Description of surgery: Preoperative diagnosis: C3-6 disc degeneration with stenosis, cord compression with cord signal changes, severe progressive myelopathy Postoperative diagnosis: Same Name of procedure: C3-6 anterior cervical discectomy and fusion with plate instrumentation - Anterior cervical fusion C3-4, CPT code 88894 - Anterior plate instrumentation C3-6, CPT code 40483/59 - Anterior cervical fusion C4-5, CPT code 20765/51 - Anterior cervical fusion C5-6, CPT code 75847/51 - C3-4 structural allograft bone with DBX, CPT code 73109 - C4-5 structural allograft bone with DBX, CPT code 29644 - C5-6 structural allograft bone with DBX, CPT code 22317 Attending surgeon: Willi Serra M.D. Anesthesia: Gen. endotracheal Estimated blood loss: 50 mL Complications: None Instrumentation used: Medtronic Monona Elite plate, LASR corticocancellous block Indications: The patient is a pleasant 64-year-old gentleman who presented with neck pain, weakness in all 4 extremities, right worse than left, progressive worsening of balance and dexterity and difficulty ambulation requiring wheelchair. MRI showed C3-6 disc degeneration with severe stenosis and severe cord compression with cord signal changes. In order to halt the progression of myelopathy, the patient requested surgical treatment. All risks and benefits of the procedure were explained to the patient. The risks include but are not limited to infection, bleeding, injury to nerves and vessels, vertebral artery injury, spinal cord injury, paralysis, vocal cord paralysis, injury to esophagus, pseudoarthrosis, need for further procedures, adjacent segment degeneration. Procedure: The patient was identified in the preoperative suite using unique patient identifiers. Skin was marked consent was taken and all questions were answered. The patient was then brought back to the operative room and a timeout was performed. General endotracheal anesthesia was given. Intraoperative neuro monitoring leads were applied. The patient was carefully positioned supine on a regular OR table. A lateral view with a C-arm was done to identify the level and to define the incision. The anterior neck was then prepped and draped in the usual fashion. A final timeout was then performed. A transverse skin incision was taken to the left of midline. Subcutaneous tissue was then divided with Bovie. Platysma was identified and cut along the incision with scissors. The fascial interval between the sternocleidomastoid and the larynx was developed. Omohyoid was identified and retracted. The esophagus with the larynx was retracted medially to reach the prevertebral fascia. Marker x-ray was performed with bent spinal needle and disc space and levels were confirmed. Longus coli muscle was elevated on both sides at and above and below C3-6 discs. Self-retaining retractors were then placed. A long handle knife was then used to perform annulotomy at C3-4. Disc fragments were removed with the pituitary. [place] pins were placed in C3 and C4 for disc distraction. Curettes and bur was utilized to remove cartilage from the endplates. Discectomy was performed laterally up to the uncovertebral joints. Posterior osteophytes were thinned down with the bur and adequate decompression in the central and foraminal areas were performed and PLL was thinned out. Once the disc space was prepared, trials of various sizes were utilized. Thorough irrigation was given. 6 mm LASR cortical cancellous allograft bone large footprint was then fashioned in such a way that concavities were burred out inferiorly and superiorly and half cc of DBX (demineralized bone matrix) was squeezed into the cancellous portion. The graft was then inserted into the C3-4 disc space. The retractors were then repositioned and the procedure was repeated for C4-5 and C5-6 discs with complete discectomy. Graft sizes were 6 mm at with large footprint at C4-5 and C5-6. The grafts were found to be in good apposition with good pullout strength. A 62 mm Medtronic Monona Elite plate was then fixed to C3-6 with 16 mm screws. A lateral x-ray was then taken to check the length of the screws. Both AP and lateral x-rays showed good positioning of plate and screws. The locking mechanism over the screw heads was then turned. Thorough irrigation was again given. Hemostasis was achieved. A [place] drain was then inserted. Closure was done with 3-0 Vicryl for the platysma and subcutaneous tissue layers and 4-0 Monocryl for the skin. Closure was done around the drain. Steri-Strips were applied and dressing was done with 4 x 4 gauze and Tegaderm. A cervical collar was then applied. The patient was then woken up from anesthesia extubated and taken to PACU in stable condition. From here, the patient will be transitioned to the floor. Intraoperative neuro monitoring was performed throughout this procedure. Motor evoked potentials were run periodically. All potentials remained at baseline throughout the procedure. I was present for the entire surgery and performed the surgery myself. Refractory Tile Helper Almaz Tran PA-C. My physician library media assistant was a vital part of this case. They were important in appropriate retraction during the case, and protection of soft tissues during the procedure. Their intimate knowledge of the case and my steps aided in safe and expedient completion of the procedure as well as appropriate position of the patient during the surgery. They were also vital in assisting with closure under my direct supervision. Surgical Findings: See operative note Complications Complications: No
--- NOTE | 2025-06-21 15:54 | PCM.POST.ANE ---
Anesthesia: Postop Eval I Current Vital Signs Temperature: 97.5 F Pulse Rate: 92 Blood Pressure: 157/83 Respiratory Rate: 16 Pulse Ox: 96 Oxygen Delivery Method: Room Air Assessment Airway patent: Yes Spontaneous unlabored respirations: Yes Mental status: Awake and Calm nausea: No Vomiting: No Anesthesia Complication: No Fluid Hydration Crystalloid volume administer (ml): 1,500 Total IV fluid infused: 1,500 Progress Note Anesthesia document: Postop Eval 1 completed: Yes
--- NOTE | 2025-06-21 15:58 | SUR.PHASEI ---
PATIENT REPORTS CHRONIC NUMBNESS TO B/L FINGERTIPS WHICH HE'S HAD SINCE APPROX NOVEMBER 2024.
--- NOTE | 2025-06-21 17:29 | PCM.CONS.GEN ---
Assessment & Plan Assessment/Plan (1) Cervical stenosis of spinal canal: (2) Cervical myelopathy: PLAN: Plan Patient is a 64-year-old male who presented [facility] on 06/21/2025 for planned cervical spine fusion procedure. Medicine consulted postoperatively for medical management. 1. C3-6 disc generation with stenosis, cord compression and severe progressive myelopathy ? Orthopedic surgery primary. S/p C3-6 anterior cervical disc fusion with Dr. Serra on 06/21. Tolerated procedure well, no intraoperative complications noted. Postoperative pain control, DVT prophylaxis and further management per orthopedics. PT/OT/case management consulted. Follow-up a.m. labs. Continue home pregabalin. 2. Type 2 diabetes mellitus ? Recent A1c 9.3% on 06/17. Per orthopedic note, previous A1c values were apparently in the 6-7 range. Postoperative glucose 189. Importantly, patient is on Decadron 4 mg every 8 hours scheduled for management of postoperative swelling. Will treat with Lantus 15 units at night and Humalog 5 units with meals plus high?medium sliding scale insulin, adjust as needed. Hold home metformin, glimepiride, and tirzepatide. 3. History of CAD with CABG, hypertension, hyperlipidemia ? Normotensive postoperatively. Continue home statin and Lopressor. Holding home baby aspirin, will defer to orthopedics on timing of restarting this. 4. Tobacco use disorder ? Daily cigarette smoker. Nicotine replacement therapy available per patient request. Discussed cessation on discharge. DVT prophylaxis: Per orthopedics Total clinical time spent by myself addressing the patient's medical issues, reviewing all the data, and collaborating with patient's care team: 39 minutes. HPI Consult Data Date of Consult: 06/21/25 HPI Narrative Reason for Consultation: Postoperative medical management HPI Narrative: MARILYN ROYAL, is a 64 M who presented to [facility] on 06/21/2025 for planned cervical spine fusion procedure. Medicine consulted postoperatively for medical management. S/p C3-6 anterior cervical disc fusion procedure done with Dr. Serra today. Patient tolerated procedure well, no intraoperative complications noted. I saw the patient at bedside this evening postoperatively. Neck brace in place. Patient was sitting back fairly comfortably in bed, conversing normally, in no acute distress. Noted that he did have mild to moderate neck pain currently has been given muscle relaxer with only minimal improvement. He denied any numbness and tingling in his upper extremities. No other acute concerns currently. [facility] Medical History Wears glasses Depression Anxiety Bruising History of steroid therapy Diabetes Uses wheelchair Arthritis High cholesterol Injury of back Injury of head and neck Syncope Dietary restriction Smoker Shortness of breath on exertion History of pain when walking History of echocardiogram History of stress test Cardiology follow-up encounter History of heart attack Cervical stenosis of spinal canal Cervical myelopathy Home Medications ?Medication ?Instructions ?Recorded ?Last Taken ?Type acetaminophen 325 mg tablet 325 mg PO Q6H PRN pain 05/16/25 Unknown History (Tylenol) celecoxib 100 mg capsule 100 mg PO BID PRN pain 05/16/25 Unknown History docusate sodium 50 mg capsule 50 mg PO BID 05/16/25 Unknown History glimepiride 4 mg tablet 4 mg PO DAILY DIABETES 05/16/25 Unknown History metformin 1,000 mg tablet 2,000 mg PO QDAY 05/16/25 Unknown History metoprolol tartrate 25 mg tablet 25 mg PO BID 05/16/25 06/21/25 06:00 History naproxen sodium 220 mg tablet 220 mg PO Q8H PRN pain 05/16/25 Unknown History (Aleve) pregabalin 300 mg capsule 300 mg PO BID 05/16/25 Unknown History rosuvastatin 40 mg tablet 40 mg PO QHS 05/16/25 Unknown History aspirin 81 mg tablet,delayed 81 mg PO DAILY 06/17/25 06/17/25 History release (Adult Aspirin Regimen) insulin glargine 100 unit/mL (3 10 unit subcut QHS PRN DIABETES 06/17/25 Unknown History mL) subcutaneous pen (Lantus Solostar U-100 Insulin) tirzepatide 2.5 mg/0.5 mL 2.5 mg subcut TU 06/17/25 06/14/25 History subcutaneous pen injector (Mounjaro) Allergy/AdvReac Type Severity Reaction Status Date / Time semaglutide (From Ozempic) AdvReac Nausea/Vom/ Verified 06/21/25 10:18 Diarrhea varenicline (From Chantix) AdvReac Nausea/Vom/ Verified 06/21/25 10:18 Diarrhea Family History Father Diabetes Heart disease Surgical History History of cardiac catheterization History of insertion of nerve stimulator History of tonsillectomy and adenoidectomy Hx of eye surgery Hx of right cataract extraction Hx of left cataract extraction History of heart bypass surgery Social History household members: spouse Smoking Status: Current every day smoker tobacco type: cigarettes alcohol intake: current alcohol intake frequency: a few times a month ROS Constitutional Constitutional: Reports fatigue; Denies chills, fever(s) or weakness Eyes Eyes: Denies change in vision Cardiovascular Cardiovascular: Denies chest pain Respiratory/Chest Respiratory/Chest: Denies shortness of breath at rest Gastrointestinal Gastrointestinal: Denies abdominal pain Musculoskeletal Musculoskeletal: Reports neck pain; Denies arthralgias or myalgias Neurologic Neurologic: Denies dizziness, focal weakness, headache(s), numbness or tingling Physical Exam Const alert, oriented x3, no apparent distress and average body habitus Constitutional Narrative: Upper middle-age male, mildly fatigued appearing, neck brace in place, sitting up fairly comfortably in bed, conversing normally, in no acute distress. General Appearance: cooperative and comfortable HEENT normocephalic, head/scalp atraumatic, hearing grossly normal bilaterally, nasal mucous membranes and turbinates normal and moist oral mucous membranes Eyes PERRL, EOMs intact bilaterally and conjunctivae normal Neck Neck Narrative: Neck brace in place. Chest inspection of chest normal Resp normal respiratory effort, normal air movement, no use of accessory muscles and clear to auscultation bilaterally Cardio regular rate, regular rhythm, no murmurs and peripheral pulses 2+ throughout GI normal to inspection, nondistended, normoactive bowel sounds, soft to palpation, non-tender and non-distended Back/Spine normal ROM Extremity normal to inspection, full ROM and no pedal edema Skin no rashes or lesions noted Neuro moves all extremities, no focal motor deficits and no sensory deficits noted Speech: speech normal Psych mental status grossly normal Lab / Micro Data 06/17/25 15:40 06/17/25 15:40 Labs: Laboratory Results - last 24 hr 06/21/25 10:21: POC Glucose 189 H 06/21/25 16:03: POC Glucose 150 H Charges/Coding Visit Charges Inpatient E&M: 44223 Subs Hosp L2
--- OUTSIDE RECORDS SUMMARY | 2025-06-21 20:41 | XMS RPT_ITS | CCD ---
Author Organization [facility] Care Team Providers Care Cath Lab Radiological Technologist Name Role Phone KATHLEEN MCCLELLAND-STRUCTURAL SHOP HELPER, SWAPNA Primary Care Physician OLI COY DO Attending Unavailable UNGERER BEACH ATTENDANT-STRUCTURAL SHOP HELPER, SWAPNA Primary Care Annamaria LEE BEACH ATTENDANT-STRUCTURAL SHOP HELPER, WESLEY Grider Consulting Unavaila ble OLI COY DO Attending Unavailable OLI COY DO Admitting Unavailable DAVIERECindi MCCLELLAND-STRUCTURAL SHOP HELPER, SWAPNA Primary Care Unavai lablaurent Unavailable Primary Care Provider UnavailGeorgette Escamilla MD Primary Care Provider Dr. Georgette Chavez MD Primary Care Provider Aleja MADSEN, Dr. Ruggiero Attending Provider Dr. Bahman Marina MD Referring Provider [phone] JERO TRAORE MD Admitting Unavailable JERO TRAORE MD Attending Unavailable JERO TRAORE MD Consulting Unavailable JERO TRAORE MD Primary Care Unavailable PROVIDER, UNKNOWN Consulting Unavailable PROVIDER, UNKNOWN Consulting Unavailable PROVIDER, UNKNOWN Consulting Unavailable JUSTINO SIN Primary Care Unavailable JUSTINO SIN Admitting Unavailable JUSTINO SIN Attending Unavailable MERCY ECHOLS MD Admitting Unavailable MERCY ECHOLS MD Attending Unavailable MERCY ECHOLS MD Primary Care Unavailable JERO TRAORE MD Consulting Unavailable PROVIDER, UNKNOWN Consulting Unavailable PROVIDER, UNKNOWN Consulting Unavailable PROVIDER, UNKNOWN Consulting Unavailable BAHMAN MARINA MD Admitting Unavailable BAHMAN MARINA MD Attending Unavailable BAHMAN MARINA MD Primary Care Unavailable JERO TRAORE MD Consulting Unavailable PROVIDER, UNKNOWN Consulting Unavailable PROVIDER, UNKNOWN Consulting Unavailable PROVIDER, UNKNOWN Consulting Unavailable JERO TRAORE MD Admitting Unavailable JERO TRAORE MD Attending Unavailable JERO TRAORE MD Consulting Unavailable JERO TRAORE MD Primary Care Unavailable PROVIDER, UNKNOWN Consulting Unavailable PROVIDER, UNKNOWN Consulting Unavailable PROVIDER, UNKNOWN Consulting Unavailable SWAPNA DOE DIRECTOR AGRICULTURAL SERVICES Admitting Unavailable SWAPNA DOE DIRECTOR AGRICULTURAL SERVICES Attending Unavailable DAVIERESWAPNA Puente DIRECTOR AGRICULTURAL SERVICES Primary Care Unavailable Prayson, Bahman Referring Unavailable Scott, Georgette Primary Care Unavailable Prayson, Bahman Attending Unavailable Prayson, Bahman Referring Unavailable Scott, Georgette Primary Care Unavailable Prayson, Bahman Attending Unavailable Scott, Geogrette Primary Care Unavailable Prayson, Bahman Attending Unavailable Prayson, Bahman Referring Unavailable Scott, Georgette Primary Care Unavailable NjAntonio velaril Attending Unavailable Scott, Georgette Primary Care Unavailable Scott, Georgette Referring Unavailable Willi Serra Attending Unavailable Allergies Allergy Classification Reported Allergen(s) Allergy Type Date of Onset Reaction(s) Facility (18 sources) varenicline; Translations: [varenicline] Drug Allergy 5 Nausea/vomiting [facility] (16 sources) semaglutide Drug Allergy 5 Nausea/vomiting [facility] (1 source) varenicline Drug Allergy 5 [facility] (1 source) semaglutide Drug allergy (disorder) 5 [facility] Medications Current Medications Medication Drug Class(es) Dates Sig (Normalized) Sig (Original) acetaminophen 500 mg oral tablet (16 sources) take 3 tablets by mouth twice daily acetaminophen (Tylenol Extra Strength) 500 mg tablet Take 3 tablets twice a day by oral route. Active acetaminophen 325 mg / HYDROcodone bitartrate 5 mg oral tablet (8 sources) Opioid Agonist Start: 11-12-2023 End: 11-19-2023 take 1 tablet by mouth every six hours as needed for pain Alamo 325- 5 mg oral tablet Dose = 1 tab(s), Oral, q6h, PRN for pain, X 7 day(s), # 28 tab(s), 0 Refill(s), Pharmacy: [facility], Lumbar spondylosis, 180.34, cm, 11/12/23 6:41:00 [...] mouth every eight hours as needed HYDROcodone-acetaminophen (Alamo) 5-325 mg tablet Take 1 tablet by mouth every 8 hours if needed. 02/15/2025 Discontinued (Med List Cleanup) aspirin 81 mg delayed release oral tablet (17 sources) Platelet Aggregation Inhibitor, Nonsteroidal Anti-inflammatory Drug [...] hydrochloride 150 mg extended release oral tablet (16 sources) Aminoketone Start: 02-15-2025 End: 05-16-2025 take 1 tablet by mouth once daily in the morning buPROPion XL (Wellbutrin XL) 150 mg 24 hr tablet Indications: Major depressive disorder with single episode, in partial remission Take 1 tablet (150 mg) by mouth once daily in the morning. Do not crush, chew, or split. 30 tablet 2 04/16/2025 12:57 PM EDT 02/15/2025 05/16/2025 Active End: 02-15-2025 take 1 tablet by [...] qDay, # 30 tab(s), 3 Refill(s), Pharmacy: [facility], 180.3, cm, 07/25/23 15:36:00 EST, Height, kg, 07/25/23 15:36:00 EST, Dosing Weight Start Date: 07/25/23 Status: Ordered diclofenac sodium 0.01 mg/mg topical gel (3 sources) Nonsteroidal Anti-inflammatory Drug Start: 04-15-2025 diclofenac sodium (Voltaren) 1 % gel Indications: osteoarthritis Apply 4.5 inches (4 g) topically 4 times a day as needed (USE NEEDED FOR TIGHT SHOULDER PAIN). 100 g 1 04/15/2025 Active docusate sodium 50 mg oral capsule (13 sources) Start: 07-24-2023 docusate sodium (Colace) 50 mg capsule Take 1 capsule (50 mg) by mouth if needed for constipation. 07/24/2023 Active DULoxetine 60 mg delayed release oral capsule (12 sources) Serotonin and Norepinephrine Reuptake Inhibitor Start: 03-08-2025 take 1 capsule by mouth in the morning DULoxetine (Cymbalta) [address] capsule Take 1 capsule (60 mg) by mouth early in the morning.. 03/08/2025 Active Start: 07-24-2023 End: 02-15-2025 Cymbalta 60 mg oral delayed release capsule Dose : 60 mg = 1 cap(s), Oral, qDay, 0 Refill(s) Start Date: 07/24/23 Status: Ordered gabapentin 600 mg oral tablet (7 sources) Anti-epileptic Agent Start: 03-08-2025 take 1 tablet by mouth three times daily gabapentin (Neurontin) 600 mg tablet Take 1 tablet (600 mg) by mouth 3 times a day. 03/08/2025 Active Start: 09-07-2020 gabapentin 600 mg oral tablet Dose : 600 mg = 1 tab(s), Oral, QID, PRN Pain, TAKE ONE TABLET BY MOUTH THREE TIMES DAILY Start Date: 09/07/20 Status: Ordered glimepiride 4 mg oral tablet (11 sources) Sulfonylurea Start: 01-12-2025 take 1 tablet by [...] 0 Refill(s) Start Date: 11/05/23 Status: Ordered metFORMIN hydrochloride 1000 mg oral tablet (20 sources) Biguanide Start: 05-10-2025 metFORMIN (Glucophage) 1,000 mg tablet 05/10/2025 Active Start: 09-07-2020 take 1 tablet by hi th twice daily for diabetes mellitus metFORMIN 750 mg oral tablet EXTENDED RELEASE TAKE ONE TABLET BY MOUTH TWICE DAILY FOR diabetes Start Date: 09/07/20 Status: Ordered metoprolol tartrate 25 mg oral tablet (19 sources) beta-Adrenergic Fili Start: 03-04-2025 take 1 tablet by mouth twice daily metoprolol tartrate (Lopressor) 25 mg tablet Indications: History of coronary artery bypass graft x 3 Take 1 tablet (25 mg) by mouth 2 times a day. 180 tablet 3 05/12/2025 12:35 PM EST 03/04/2025 Active Start: 11-13-2023 End: 11-13-2023 take 1 tablet [...] Date: 11/12/23 Stop Date: 11/12/23 Status: Completed End: 03-04-2025 take 1 tablet by mouth twice daily metoprolol tartrate (Lopressor) 25 mg tablet Take 1 tablet (25 mg) by mouth 2 times a day. 03/04/2025 Discontinued (Reorder) olmesartan medoxomil 20 mg oral tablet (11 sources) Angiotensin 2 Receptor Fili Start: 02-15-2025 End: 08-14-2025 take 1 tablet by mouth once daily in the morning olmesartan (BENIcar) 20 mg tablet Indications: Primary hypertension Take 1 tablet (20 mg) by mouth once daily. 30 tablet 5 03/03/2025 9:28 AM EDT 02/15/2025 08/14/2025 Active pregabalin 300 mg oral capsule (11 sources) Start: 01-31-2025 take 1 capsule by mouth every twelve hours pregabalin (Lyrica) 300 mg capsule Take 1 capsule (300 mg) by mouth every 12 hours. 01/31/2025 Active rosuvastatin calcium 20 mg oral tablet (18 sources) HMG-CoA Reductase Inhibitor Start: 03-04-2025 End: 03-04-2026 take 1 tablet by mouth once daily rosuvastatin (Crestor) 20 mg tablet Indications: History of coronary artery bypass graft x 3 Take 1 tablet (20 mg) by mouth once daily. 30 tablet 11 03/04/2025 03/04/2026 Active Start: 09-07-2020 take 1 tablet by hi th once daily rosuvastatin 40 mg oral tablet TAKE ONE TABLET BY MOUTH EVERY night Start Date: 09/07/20 Status: Ordered End: 03-04-2025 rosuvastatin (Crestor) 10 mg tablet 03/04/2025 Discontinued (Dose adjustment) semaglutide 3 mg oral tablet (13 sources) Start: 01-28-2025 End: 02-15-2025 take 1 tablet by mouth in the morning Rybelsus 3 mg tablet Indications: Type 2 diabetes mellitus with hyperglycemia, without long-term current use of insulin (Multi) Take 1 tablet (3 mg) by mouth early in the morning.. 30 tablet 2 02/15/2025 Active Completed/Discontinued Medications Medication Drug Class(es) Dates [...] pain. 10/06/2024 02/15/2025 Discontinued (Med List Cleanup) Lidocaine (2 sources) Antiarrhythmic, Amide Local Anesthetic Start: 05-12-2025 End: 05-12-2025 lidocaine (Xylocaine) 20 mg/mL (2 %) injection 2 mL Start: 05-12-2025 End: 05-12-2025 2 mL, injection, Once PRN Pr ocedure, Starting on Libby 05/12/25 at 0927, For 1 dose 20 ml ropivacaine hydrochloride 5 mg/ml injection (2 sources) Amide Local Anesthetic Start: 05-12-2025 End: 05-12-2025 ropivacaine (Naropin) 5 mg/mL (0.5 %) injection 4 mL Start: 05-12-2025 End: 05-12-2025 4 mL, Once PRN Procedure, St arting on Libby 05/12/25 at 0927, For 1 dose tiZANidine 4 mg oral tablet (6 sources) Central alpha-2 Adrenergic Agonist End: 02-15-2025 tiZANidine (Zanaflex) 4 mg tablet TAKE 1 AND 1/2 TABLETS BY MOUTH EVERY 8 HOURS NEEDED FOR PAIN 02/15/2025 Discontinued (Med List Cleanup) 1 ml triamcinolone acetonide 40 mg/ml injection (4 sources) Corticosteroid Start: 05-12-2025 End: 05-12-2025 triamcinolone acetonide (Kenalog-40) injection 2.5 mg Start: 05-12-2025 End: 05-12-2025 2.5 mg, intra-articular, Onc e PRN Procedure, Starting on Libby 05/12/25 at 0927, For 1 dose Start: 10-29-2024 End: 10-29-2024 triamcinolone acetonide (Remy alog-40) injection 2.5 mg Start: 10-29-2024 End: 10-29-2024 2.5 mg, intra-articular, Onc e PRN Procedure, Starting on Fri10/29/24 at 0937, For 1 dose Problems Active Problems Problem Classification Problem Date Documented Date Episodic/Chronic Complication of device; implant or graft (2 sources) Arteriosclerosis of coronary artery bypass graft; Translations: [Atherosclerosis of coronary artery bypass graft(s) without angina pectoris] 02-15-2025 Chronic Conditions associated with dizziness or vertigo (3 sources) Lightheadedness; Translations: [Dizziness and giddiness] 03-04-2025 Episodic Diabetes mellitus with complications (16 sources) Hyperglycemia due to type 2 diabetes mellitus; Translations: [Type 2 diabetes mellitus with hyperglycemia] Onset: 01-26-2025 02-15-2025 Chronic Diabetes mellitus without complication (3 sources) Diabetes mellitus; Translations: [Type 2 diabetes mellitus without complication] Onset: 11-12-2023 07-28-2023 Chronic Disorders of lipid metabolism (3 sources) Hyperlipidemia; Translations: [Hyperlipidemia, unspecified] 07-28-2023 Chronic Essential hypertension (3 sources) Essential hypertension; Translations: [Essential (primary) hypertension] Onset: 11-12-2023 Chronic Mood disorders (1 source) Major depression single episode, in partial remission; Translations: [Major depressive disorder, single episode, in partial remission] 02-15-2025 Chronic Other non-traumatic joint disorders (3 sources) Chronic pain of right upper limb; Translations: [Pain in right shoulder] 04-14-2025 Episodic Other nutritional; endocrine; and metabolic disorders (1 source) Hyperuricemia without signs of inflammatory arthritis and tophaceous disease; Translations: [Hyperuricemia without signs of inflammatory arthritis and tophaceous disease] Onset: 01-26-2025 Episodic Gabbi-; endo-; and myocarditis; cardiomyopathy (except that caused by tuberculosis or sexually transmitted disease) (3 sources) Cardiomyopathy; Translations: [Cardiomyopathy, unspecified] Onset: 11-12-2023 07-28-2023 Chronic Peripheral and visceral atherosclerosis (1 source) Atherosclerosis of artery ; Translations: [Unspecified atherosclerosis] 03-04-2025 Chronic Screening and history of mental health and substance abuse codes (2 sources) Tobacco use and exposure - finding 07-28-2023 Chronic Spondylosis; intervertebral disc disorders; other back problems (1 source) Spondylosis without myelopathy or radiculopathy, cervical region; Translations: [Spondylosis without myelopathy or radiculopathy, cervical region] Onset: 02-21-2025 Chronic Spondylosis; intervertebral disc disorders; other back problems (1 source) Cervicalgia; Translations: [Cervicalgia] Onset: 05-16-2025 Episodic Substance-related disorders (6 sources) Cigarette smoker ; Translations: [Nicotine dependence] 02-15-2025 Chronic Unclassified (6 sources) Right shoulder pain, unspecified chronicity 10-29-2024 Unclassified (3 sources) Chronic pain of right upper limb 05-10-2025 Past or Other Problems Problem Classification Problem Date Documented Da te Episodic/Chronic Mood disorders (11 sources) Mood disorders Onset: 02-15-2025 02-15-2025 Other non-traumatic joint disorders (20 sources) Pain in right shoulder; Translations: [Pain in joint, shoulder region] Onset: 10-29-2024 10-29-2024 Episodic Unclassified (11 sources) Onset: 02-15-2025 Resolved: 04-14-2025 02-15-2025 Results Test Name Value Interpretation Reference Range Facility Orthopedic Visit Reporton Orthopedic Visit Report [facility] [address] [place] [id number] OFFICE VISIT Date of Service: 05/16/25 MR#: [id number] Acct: [id number] Name: SIVAKUMAR CARLOS Rep #: [id number] : 1960 Provider: Dr. Willi Serra MD Age/Sex: 64/M Location: [facility] [place] Status: Signed Intake Vital Signs 05/16/25 15:10 Height 5 ft 11 in Weight: 196 lb 6 oz BMI 27.3 Intake Visit Reasons: CERVICAL SPINE Chief Complaint: Cervical/Lumbar Spine Pain Accompanied by: Self Is patient in pain?: Yes Pain scale (1-10): 9 Allergies semaglutide (From Ozempic) Adverse Reaction (Verified 05/16/25 15:11) Nausea/Vom/Diarrhea varenicline (From Chantix) Adverse Reaction (Verified 05/16/25 15:11) Nausea/Vom/Diarrhea Medications ???Medication ???Instructions ???Recorded ???Confirmed ???Type acetaminophen 325 mg tablet 325 mg PO ONCE PRN 05/16/25 History (Tylenol) celecoxib 100 mg capsule 100 mg PO BID PRN 05/16/25 5 History docusate sodium 50 mg capsule 50 mg PO BID 05/16/25 05/16/25 His tory duloxetine 30 mg capsule,delayed mg PO 05/16/25 05/16/25 History release glimepiride 4 mg tablet 4 mg PO 05/16/25 05/16/25 History metformin 1,000 mg tablet 2,000 mg PO QDAY 05/16/25 05/16/25 History metoprolol tartrate 25 mg tablet 25 mg PO BID 05/16/25 05/16/25 His tory naproxen sodium 220 mg tablet 220 mg PO ONCE PRN 05/16/25 History (Aleve) pregabalin 300 mg capsule 300 mg PO BID 05/16/25 05/16/25 Hi story rosuvastatin 40 mg tablet 40 mg PO QHS 05/16/25 05/16/25 His tory Have you fallen in the past year?: Yes [facility] Medical History (Updated 05/16/25 @ 15:59 by Jacqueline Caruso RN) Cervical stenosis of spinal canal Cervical myelopathy Surgical History History of eye surgery History of heart bypass surgery Family History (Updated 05/16/25 @ 15:15 by Betzy Landeros) Father Diabetes Heart disease Social History (Updated 05/16/25 @ 15:16 by Betzy Landeros) household members: spouse Smoking Status: Current every day smoker alcohol intake: current alcohol intake frequency: a few times a month HPI CERVICAL SPINE Details: This documentation accurately reflects the service provided and the decisions made by me, Dr. Willi Serra MD 05/16/25 [id number]. Part of today???s visit was documented by Betzy Puente ATC and Jacqueline Caruso RN, acting as scribe. SIVAKUMAR CARLOS is a 64 year old M here today for cervical/lumbar spine pain. Patient rates his pain a /10 today. He comes in today ambulating with a cane that he started using two weeks ago. He has fallen 6 times in the last few weeks but not onto the floor, he has fallen onto the chair or couch. He states the pain is about the same in the lumbar and cervical but Dr. Marina told him the cervical spine was more of the priority. Patient states his lumbar spine has bothered him for about 25-30 years but the cervical spine just started bothering him in October. He states the right shoulder started bothering him and he went and saw an ortho doctor in [place] and he had a steroid injection in the shoulder and it worked or about 8 days. After the injection it just progressively gotten worse. He has continuos numbness/tingling down both arms that never goes away. He has a lot of pain in the posterior aspect of the neck and states it feels like something is cracked. He states he is unable to lift anything with the right arm at all and if he does the arm will lock up on him and he will drop everything out of his hand. He is LHD. He has noticed a change in his hand writing over the last month. He complains of dexterity issues in both hands but the right is much worse. He has a very difficult time shaving. He has trouble buttoning his shirt and pants. He can eat but has trouble holding the food and utensils. Food falls off of the spoon. He has lost 5 pounds in the last week. He complains of a lot of balance issues and he has fallen a few times due to it. He was recently on vacation and he had to cut it short due to not being able to walk well. He feels like he is walking with stilts on and the more he walks the worse it gets. He states ambulating steps and going up and down and slopes is really bad and he loses his balance. He has a lot of weakness in the legs and the right side is worse. He has a handicapped ramp to get in the front of the house and three steps in the back of the house. The last couple of days he has noticed the numbness/tingling is getting worse in his legs and feet. He feels like he is unable to take care of himself without any help. He describes the lumbar spine pain more on the right side and it is across his belt line. He does apply heat to the back. He denies any recent injections to the lumbar or (more content not included)... Normal [facility] HEMOGLOBIN A1c WITH eAGon eAG (mmol/L) 14.1 mmol/L Normal [facility] Comment on above: Performed By: #### 1 [id number] #### [facility] [address], [address] [place], [place] [id number] Tracer Powder Blender: Prasanna Corral MD HbA1c (Bld) [Mass fraction] 10.5 % High <5.7 [facility] Comment on above: Result Comment: For someone without known diabetes, a hemoglobin A1c value of 6.5% or greater indicates that they may have diabetes and this should be confirmed with a follow-up test. For someone with known diabetes, a value <7% indicates that their diabetes is well controlled and a value greater than or equal to 7% indicates suboptimal control. A1c targets should be individualized based on duration of diabetes, age, comorbid conditions, and other considerations. Currently, no consensus exists regarding use of hemoglobin A1c for diagnosis of diabetes for children. Performed By: #### 1 [id number] #### [facility] [address], [address] [place] [id number] Tracer Powder Blender: Prasanna Corral MD Magnesium [Mass/Vol] 255 mg/dL Normal [facility] Comment on above: Performed By: #### 1 [id number] #### [facility] [address] [facility], [address] [place] [address] Tracer Powder Blender: Prasanna Corral MD L Inj/Asp: R subacromial bur saon 05-12-2025 Mercy Echols MD 05/12/2025 9:27 AM L Inj/Asp: R subacromial bursa on 05/12/2025 9:27 AM Indications: pain Details: ultrasound-guided anterior approach Medications: 2.5 mg triamcinolone acetonide 40 mg/mL; 2 mL lidocaine 20 mg/mL (2 %); 4 mL ropivacaine 5 mg/mL (0.5 %) Procedure, treatment alternatives, risks and benefits explained, specific risks discussed. Immediately prior to procedure a time out was called to verify the correct patient, procedure, equipment, retail support specialist and site/side marked as required. Patient was prepped and draped in the usual sterile fashion. [facility] Work Phone: [facility] Work Phone: Abdomenon 05-12-2025 These images are not reportable by radiology and will not be interpreted by Radiologists. IMAGING MR Shoulder - right WO contr radhames 05-10-2025 Small amount of partial-thickness tearing distal subscapularis without full-thickness rotator cuff tear. Slightly blunted posterosuperior labrum likely degenerative labral tearing. Advanced acromioclavicular osteoarthritis with mild subacromial subdeltoid bursitis. Signed by: Norberto Simpson 05/10/2025 11:47 AM Dictation workstation: [id number] MMODAL Interpreted By: Norberto Simpson, STUDY: MR SHOULDER RIGHT WO IV CONTRAST; INDICATION: Signs/Symptoms:RIGHT SHOULDER R/O ROTATER CUFF TEAR. COMPARISON: Plain film radiographs right shoulder performed on March 03 ACCESSION NUMBER(S): [id number] ORDERING CLINICIAN: MERCY ECHOLS TECHNIQUE: Multiplanar multisequential MRI right shoulder without contrast. FINDINGS: There is a small amount of partial tearing of the subscapularis distal fibers. Remainder of the rotator cuff tendons are intact. No full-thickness tear. Muscle volume normal. Biceps intact. Slightly blunted posterosuperior labrum suggesting some degenerative tearing. No glenohumeral ligamentous abnormality. No evidence of fracture. No sizeable effusion. No glenohumeral chondral defects. Advanced acromioclavicular osteoarthritis causing mass effect on the supraspinatus myotendinous junction. Mild subacromial subdeltoid bursal fluid. No evidence of fracture. No marrow replacement lesion. [facility] Norberto Simpson MD - 05/10/2025 Interpreted By: Norberto Simpson, STUDY: MR SHOULDER RIGHT WO IV CONTRAST; INDICATION: Signs/Symptoms:RIGHT SHOULDER R/O ROTATER CUFF TEAR. COMPARISON: Plain film radiographs right shoulder performed on March 03 ACCESSION NUMBER(S): [id number] ORDERING CLINICIAN: MERCY ECHOLS TECHNIQUE: Multiplanar multisequential MRI right shoulder without contrast. FINDINGS: There is a small amount of partial tearing of the subscapularis distal fibers. Remainder of the rotator cuff tendons are intact. No full-thickness tear. Muscle volume normal. Biceps intact. Slightly blunted posterosuperior labrum suggesting some degenerative tearing. No glenohumeral ligamentous abnormality. No evidence of fracture. No sizeable effusion. No glenohumeral chondral defects. Advanced acromioclavicular osteoarthritis causing mass effect on the supraspinatus myotendinous junction. Mild subacromial subdeltoid bursal fluid. No evidence of fracture. No marrow replacement lesion. IMPRESSION: Small amount of partial-thickness tearing distal subscapularis without full-thickness rotator cuff tear. Slightly blunted posterosuperior labrum likely degenerative labral tearing. Advanced acromioclavicular osteoarthritis with mild subacromial subdeltoid bursitis. Signed by: Norberto Simpson 05/10/2025 11:47 AM Dictation workstation: [id number] [facility] Work Phone: Radiology Study observation (narrative) [facility] Work Phone: MR Shoulder - right WO contr astOrdered By: Norberto Simpson on 05-10-2025 [facility] Work Phone: Spine Cervical (Routine)on 07-10-2024 Spine Cervical (Routine) [facility] Services [address] [place] [address] Spine Cervical (Routine) MR#: [id number] Acct: [id number] Name: SIVAKUMAR CARLOS Rep #: [id number] : 1960 M 64 From: Janice Shook MD PCP: Dr. Georgette Chavez MD Status: REG CLI Study: Spine Cervical (Routine) Date of Exam: Exam# [id number] Ordering Dr: Bahman Marina MD PROCEDURE: SPINE CERVICAL (ROUTINE) 05/10/2025 REASON FOR EXAM: CERVICAL SPONDYLOSIS TECHNIQUE: Procedure Code: MRISP Modality: MR Procedure: SPINE CERVICAL (ROUTINE) Multiplanar and multisequence images were obtained without IV contrast administration. COMPARISON: X-ray of the cervical spine 02/15/2025. FINDINGS: Vertebrae: Cervical vertebral body heights are preserved. Bone marrow signal is unremarkable. Alignment: Normal. No spondylolisthesis. Spinal Cord: Compression upon the spinal cord predominantly at C4-C5 where there is change and hyperintense signal on T2 consistent with myelomalacia. C2-3: Disc osteophyte complex. Facet joint arthropathy. Moderate canal stenosis. Mild bilateral foramina stenosis. C3-4: Disc osteophyte complex. Facet joint arthropathy. Severe canal stenosis. Severe bilateral foramina stenosis. C4-5: Disc osteophyte complex. Disc desiccation. Facet joint arthropathy. Compression upon the spinal cord. Severe canal stenosis. Severe bilateral foramina stenosis. C5-6: Disc desiccation. Disc bulge. Facet joints arthropathy. Severe bilateral foramina stenosis. Severe canal stenosis. C6-7: Disc bulge. Uncovertebral hypertrophy. Facet joint arthropathy. Mild bilateral foramina stenosis. Mild canal stenosis. C7-T1: Unremarkable MRI/Spine Cervical (Routine) IMPRESSION: Multilevel degenerate changes predominantly C3 through C6 where there is severe canal stenosis and severe bilateral foraminal stenosis along with compression upon the spinal cord and change at spinal cord intrinsic signal centered at C4-C5 consistent with myelomalacia. Reading Location: [facility] CC: Dr. Georgette Chavez MD; Dr. Bahman Marina MD Assistant Professor Of Spanish: Signed Normal [facility] Spine Lumbar (Routine)on Spine Lumbar (Routine) [facility] Imaging Services [address] [place], [place] [id number] Spine Lumbar (Routine) MR#: [id number] Acct: [id number] Name: SIVAKUMAR CARLOS Rep #: [id number] : 1960 M 64 From: Rafael Cesar MD PCP: Dr. Georgette Chavez MD Status: REG CLI Study: Spine Lumbar (Routine) Date of Exam: 05/10/25 Exam# [id number] Ordering Dr: Bahman Marina MD PROCEDURE: SPINE LUMBAR (ROUTINE) 05/10/2025 REASON FOR EXAM: LUMBAR RADICULOPTHY TECHNIQUE: Procedure Code: MRISPL Modality: MR Procedure: SPINE LUMBAR (ROUTINE) COMPARISON: None FINDINGS: Vertebrae: No fracture. Alignment: Grade 1 anterolisthesis (8 mm) L5 on S1 with pars defects. Conus Medullaris: Terminates at T12. No abnormal signal within the conus. L1-2: Normal L2-3: Mild, diffuse disc bulge. Moderate thickening of ligamentum flavum. Ufmz-rx-jymwpddy facet hypertrophy. Central canal is 11 mm AP. No exit foraminal narrowing. L3-4: Mild, diffuse disc bulge. Moderate thickening of ligamentum flavum. Mild facet hypertrophy. Central canal is 10 mm AP. No exit foraminal narrowing. L4-5: Gvqz-kp-kqsjeoly, diffuse disc bulge. Bedcagfn-ae-kpnqwf thickening of the ligamentum flavum. Mild bilateral facet hypertrophy. Central canal is 12 mm AP. Exit foramina are narrowed bilaterally. Correlate with L4 radiculopathy. L5-S1: Mild, diffuse disc bulge and disc uncovering. Bilateral pars defects. No central stenosis. Bilateral exit foraminal narrowing, jysx-hcuhgbc-iyfy-rig ht. Correlate with L5 radiculopathy. MRI/Spine Lumbar (Routine) IMPRESSION: 1. Grade 1 anterolisthesis L5 on S1 with bilateral pars defects. Bilateral exit foraminal narrowing, aafk-kaqiowf-nbpg-rig ht. Correlate with the L5 radiculopathy. 2. Degenerative change L3/4 and L4/5 as above. Reading Location: [id number] CC: Dr. Georgette Chavez MD; Dr. Bahman Marina MD Assistant Professor Of Spanish: Signed Normal [facility] US Abdomenon 04-14-2025 These images are not reportable by radiology and will not be interpreted by Radiologists. IMAGING CT Chest for screeningon 1.Numerous small bilateral noncalcified pulmonary nodules, measuring up to 6 mm, probably benign. Recommend follow up with low Dose Chest CT in 6 months (from current date) is recommended. 2.Mild upper lung predominant centrilobular and paraseptal emphysema with findings suggestive of respiratory bronchiolitis 3.Coarse calcifications of aortic valve and correlate with concern for aortic valve stenosis . 4. Cholelithiasis. LUNG RADS CATEGORY: Lung Rad: Lung-RADS 3 (Probably Benign) Recommendation: Follow up Low Dose Chest CT in 6 months, recommended as per [employer] [employer] Guidelines Lung-RADS Version 2022. Recommend F/U with Computer Aided Design Designer. MACRO: None Signed by: Modesto Lakhani 03/25/2025 5:55 PM Dictation workstation: [id number] Interpreted By: Modesto Lakhani, STUDY: CT LUNG SCREENING LOW DOSE; 03/25/2025 3:56 pm INDICATION: Signs/Symptoms:screen ing. COMPARISON: None. ACCESSION NUMBER(S): [id number] ORDERING CLINICIAN: GEORGETTE CHAVEZ TECHNIQUE: Helical data acquisition of the chest was obtained without IV contrast material. Images were reformatted in axial, coronal, and sagittal planes. FINDINGS: LUNGS AND AIRWAYS: The trachea and central airways are patent. No endobronchial lesion is seen. There is diffuse bronchial wall thickening, which is a non-specific finding, but may be due to chronic bronchitis, given the history of smoking. Note is also made of centrilobular ground-glass nodularity within bilateral upper lobes, which likely represent a component of respiratory bronchiolitis. There is bilateral upper lung predominant centrilobular and paraseptal emphysema. There is no focal consolidation, pleural effusion, or pneumothorax. There are numerous bilateral noncalcified pulmonary nodules seen. For example, there is a 6 mm solid nodule within inferior right upper lobe as on axial image 141, series 5 another 6 mm solid nodular density within posterior and inferior right upper lobe on axial image 149 and a 5 mm ground-glass nodule within left upper lobe on axial image 144, series 5. Note is also made of a 5 mm solid nodule medially within right lower lobe on axial image 97, series 5. MEDIASTINUM AND ALIYAH, LOWER NECK AND AXILLA: The visualized thyroid gland is within normal limits. No evidence of thoracic lymphadenopathy by CT criteria. Esophagus appears within normal limits as seen. HEART AND VESSELS: The thoracic aorta normal in course and caliber. Moderate calcified atherosclerosis of thoracic aorta and its branches Main pulmonary artery and its branches are normal in caliber. Moderate coronary artery calcifications seen, status post LAD stenting. Please note that, the present study is not tailored for evaluation of coronary arteries. The cardiac chambers are not enlarged.Coarse calcifications of aortic valve and correlate with concern for aortic valve stenosis (image 153, series 5). There is no pericardial effusion seen. UPPER ABDOMEN: Few tiny benign calcified granulomas within spleen. Moderate calcified atherosclerosis of upper abdominal aorta and its branches. Small layering calculi within visualized gallbladder. CHEST WALL AND OSSEOUS STRUCTURES: Chest wall is within normal limits. Status post median sternotomy. Multilevel degenerative changes within visualized spine. Neurostimulator leads are noted within posterior thoracic spinal canal. [facility] Modesto Lakhani MD - 03/25/2025 Interpreted By: Modesto Lakhani, STUDY: CT LUNG SCREENING LOW DOSE; 03/25/2025 3:56 pm INDICATION: Signs/Symptoms:screen ing. COMPARISON: None. ACCESSION NUMBER(S): [id number] ORDERING CLINICIAN: GEORGETTE CHAVEZ TECHNIQUE: Helical data acquisition of the chest was obtained without IV contrast material. Images were reformatted in axial, coronal, and sagittal planes. FINDINGS: LUNGS AND AIRWAYS: The trachea and central airways are patent. No endobronchial lesion is seen. There is diffuse bronchial wall thickening, which is a non-specific finding, but may be due to chronic bronchitis, given the history of smoking. Note is also made of centrilobular ground-glass nodularity within bilateral upper lobes, which likely represent a component of respiratory bronchiolitis. There is bilateral upper lung predominant centrilobular and paraseptal emphysema. There is no focal consolidation, pleural effusion, or pneumothorax. There are numerous bilateral noncalcified pulmonary nodules seen. For example, there is a 6 mm solid nodule within inferior right upper lobe as on axial image 141, series 5 another 6 mm solid nodular density within posterior and inferior right upper lobe on axial image 149 and a 5 mm ground-glass nodule within left upper lobe on axial image 144, series 5. Note is also made of a 5 mm solid nodule medially within right lower lobe on axial image 97, series 5. MEDIASTINUM AND ALIYAH, LOWER NECK AND AXILLA: The visualized thyroid gland is within normal limits. No evidence of thoracic lymphadenopathy by CT criteria. Esophagus appears within normal limits as seen. HEART AND VESSELS: The thoracic aorta normal in course and caliber. Moderate calcified atherosclerosis of thoracic aorta and its branches Main pulmonary artery and its branches are normal in caliber. Moderate coronary artery calcifications seen, status post LAD stenting. Please note that, the present study is not tailored for evaluation of coronary arteries. The cardiac chambers are not enlarged.Coarse calcifications of aortic valve and correlate with concern for aortic valve stenosis (image 153, series 5). There is no pericardial effusion seen. UPPER ABDOMEN: Few tiny benign calcified granulomas within spleen. Moderate calcified atherosclerosis of upper abdominal aorta and its branches. Small layering calculi within visualized gallbladder. CHEST WALL AND OSSEOUS STRUCTURES: Chest wall is within normal limits. Status post median sternotomy. Multilevel degenerative changes within visualized spine. Neurostimulator leads are noted within posterior thoracic spinal canal. IMPRESSION: 1.Numerous small bilateral noncalcified pulmonary nodules, measuring up to 6 mm, probably benign. Recommend follow up with low Dose Chest CT in 6 months (from current date) is recommended. 2.Mild upper lung predominant centrilobular and paraseptal emphysema with findings suggestive of respiratory bronchiolitis 3.Coarse calcifications of aortic valve and correlate with concern for aortic valve stenosis . 4. Cholelithiasis. LUNG RADS CATEGORY: Lung Rad: Lung-RADS 3 (Probably Benign) Recommendation: Follow up Low Dose Chest CT in 6 months, recommended as per [place] [employer] Guidelines Lung-RADS Version 2022. Recommend F/U with Computer Aided Design Designer. 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 [facility]ACS [facility] Work Phone: US Abdomenon 03-03-2025 These images are not reportable by radiology and will not be interpreted by Radiologists. IMAGING Cerv Spine 2 or 3 Viewson Cerv Spine 2 or 3 Views [facility] Imaging Services [address] [place], [place] [address] Cerv Spine 2 or 3 Views MR#: [id number] Acct: [id number] Name: SIVAKUMAR CARLOS Rep #: [id number] : 1960 M 64 From: Negrito Kraft MD PCP: Dr. Georgette Chavez MD Status: REG CLI Study: Cerv Spine 2 or 3 Views Date of Exam: 02/15/25 Exam# [id number] Ordering Dr: Bahman aMrina MD PROCEDURE: CERV SPINE 2 OR 3 VIEWS 02/15/2025 REASON FOR EXAM: R/O FX CERVICAL SPONDYLOSIS TECHNIQUE: CERV SPINE 2 OR 3 VIEWS FINDINGS: No evidence acute fracture or dislocation. Moderate degenerative changes of the spine. Normal alignment. RAD/Cerv Spine 2 or 3 Views IMPRESSION: Spondylosis. Reading Location: [id number] CC: Dr. Georgette Chavez MD; Dr. Bahman Marina MD Assistant Professor Of Spanish: Signed Normal [facility] C-REACTIVE PROTEINon 025 CRP 2.31 mg/dl High 0.00 - 0.90 [facility] Comment on above: Performed By: #### 2 [id number] #### [facility],[address] [place] [address] CBC + DIFFon 01-26-2025 Baso # 0.06 x10EE3/UL Normal 0.00 - 0.10 [facility] Comment on above: Performed By: #### 2 39560 #### [facility],[address] [place] [address]124 Basophils/100 WBC (Bld) 0.4 % Normal 0.0 - 2.0 [facility] Comment on above: Performed By: #### 2 68950 #### [facility],[address] [place], [place] [id number] CBC + DIFF Normal [facility] Comment on above: Result Comment: CBC- COMPLETE BLOOD COUNT Performed By: #### 2 93060 #### [facility],[address] [place] [address] EO # 0.13 x10EE3/UL Normal 0.00 - 0.50 [facility] Comment on above: Performed By: #### 2 62615 #### [facility],[address] [place] [address] 10427 Eosinophils/100 WBC (Bld) 0.8 % Normal 0.0 - 7.0 [facility] Comment on above: Performed By: #### 2 19745 #### [facility],[address] [place], [place] [phone] Erythrocyte distribution width (RBC) [Ratio] 12.8 % Normal 12.0 - 15.6 [facility] Comment on above: Performed By: #### 2 11995 #### [facility],[address] [place] [address] Hematocrit (Bld) [Volume fraction] 41.9 % Normal 40.0 - 52.0 [facility] Comment on above: Performed By: #### 2 09364 #### [facility],[address] [place] [address] 15797 Hemoglobin (Bld) [Mass/Vol] 14.4 g/dL Normal 13.0 - 17.5 [facility] Comment on above: Performed By: #### 2 46291 #### [facility],[address] [place] [address] 62707 Lymph # 2.97 x10EE3/UL High 0.80 - 2.80 [facility] Comment on above: Performed By: #### 2 63388 #### [facility],[address] [place] [address] 09806 Lymphocytes/100 WBC (Bld) 19.0 % Low 20.0 - 45.0 [facility] Comment on above: Performed By: #### 2 43914 #### [facility],[address] [place] [address] 39743 MANUAL DIFF N/A Normal [facility] Comment on above: Performed By: #### 2 68209 #### [facility],[address] [place], [place] [phone] MCH (RBC) [Entitic mass] 31 pg Normal 27 - 33 [facility] Comment on above: Performed By: #### 2 34671 #### [facility],[address] [place] [address] 45200 MCHC 34 X10 3 Normal 32 - 36 [facility] Comment on above: Performed By: #### 2 20194 #### [facility],[address] [place] [address] 69009 MCV (RBC) [Entitic vol] 90 fL Normal 81 - 98 [facility] Comment on above: Performed By: #### 2 10614 #### [facility],[address] [place] [address] 47666 Waldo # 1.33 x10EE3/UL High 0.20 - 1.00 [facility] Comment on above: Performed By: #### 2 35248 #### [facility],[address] [place] [address]39 MONOS % 8.5 % Normal 0.0 - 10.0 [facility] Comment on above: Performed By: #### 2 81269 #### [facility],[address] [place] [address] Morphology Shamir (Bld) [Interp] N/A Normal [facility] Comment on above: Performed By: #### 2 88973 #### [facility],[address] [place] [address] 22962 Neut # 11.13 x10EE3/UL High 1.50 - 7.10 [facility] Comment on above: Performed By: #### 2 68787 #### [facility],[address] [place] [address] 54268 Neutrophils/100 WBC (Bld) 71.3 % Normal 46.0 - 76.0 [facility] Comment on above: Performed By: #### 2 02878 #### [facility],[address] [place] [address] 58351 PLATELET 240 x10EE3/UL Normal 150 - 450 [facility] Comment on above: Performed By: #### 2 47199 #### [facility],[address] [place] [address] 10507 Platelet mean volume (Bld) [Entitic vol] 8.9 fL Normal 6.4 - 10.5 [facility] Comment on above: Result Comment: AUTO MATED DIFFERENTIAL Performed By: #### 2 03532 #### [facility],[address] [place] [address] 14578 RBC 4.64 x 10EE6/UL Normal 4.50 - 6.00 [facility] Comment on above: Performed By: #### 2 43023 #### [facility],[address] [place] [address]322 WBC 15.6 x 10EE3/UL High 4.5 - 10.8 [facility] Comment on above: Performed By: #### 2 99037 #### [facility],[address] [place] [address] 79463 CMP with eGFRon 01-26-2025 AGE 64 years Normal [facility] Comment on above: Performed By: #### 2 46642 #### [facility],[address] [place] [address] 93683 Albumin [Mass/Vol] 3.5 g/dL Normal 3.4 - 5.0 [facility] Comment on above: Performed By: #### 2 94289 #### [facility],[address] [place] [address] 16931 Albumin/Globulin [Mass ratio] 0.9 {ratio} Normal 0.9 - 1.6 [facility] Comment on above: Performed By: #### 2 47030 #### [facility],[address] [place] [address] 84697 ALK PHOS 71 U/L Normal 46 - 116 [facility] Comment on above: Performed By: #### 2 10245 #### [facility],[address] [place] [address] 62834 ALT [Catalytic activity/Vol] 28 U/L Normal 16 - 63 [facility] Comment on above: Performed By: #### 2 33475 #### [facility],[address] [place] [address] 48114 Anion gap [Moles/Vol] 12 mmol/L Normal 10 - 20 [facility] Comment on above: Performed By: #### 2 42411 #### [facility],[address] [place] [address] 30844 AST [Catalytic activity/Vol] 18 U/L Normal 15 - 37 [facility] Comment on above: Performed By: #### 2 33447 #### [facility],[address] [place] [address] 21972 B/C RATIO 24 ratio Normal 0 - 30 [facility] Comment on above: Performed By: #### 2 05611 #### [facility],[address] [place] [address] 48100 Bilirubin [Mass/Vol] 0.4 mg/dL Normal 0.2 - 1.0 [facility] Comment on above: Performed By: #### 2 64328 #### [facility],[address] [place] [address] 91263 Calcium [Mass/Vol] 8.6 mg/dL Normal 8.5 - 10.1 [facility] Comment on above: Performed By: #### 2 98330 #### [facility],[address] [place] [address] 30668 Chloride [Moles/Vol] 100 mmol/L Normal 98 - 107 [facility] Comment on above: Performed By: #### 2 07329 #### [facility],[address] [place] [address] 98716 CMP with eGFR Normal [facility] Comment on above: Result Comment: COMP REHENSIVE METABOLIC PANEL Performed By: #### 2 37881 #### [facility],[address] [place] [address] 95629 CO2 [Moles/Vol] 25.5 mmol/L Normal 21.0 - 32.0 [facility] Comment on above: Performed By: #### 2 64550 #### [facility],[address] [place] [address] 13811 Creatinine [Mass/Vol] 0.88 mg/dL Normal 0.70 - 1.30 [facility] Comment on above: Performed By: #### 2 78903 #### [facility],[address] [place] [address] 11152 GFR/1.73 sq M.predicted among non-blacks MDRD (S/P/Bld) [Vol rate/Area] mL/min/{1.73_m2} Normal 60 - 999 [facility] Comment on above: Performed By: #### 2 05574 #### [facility],[address] [place] [address] 59512 Result Comment: ACCO RDING TO THE NATIONAL KIDNEY DISEASE EDUCATION PROGRAM(NKDE), A NORMAL eGFR IS A VALUE GREATER THAN OR EQUAL TO 60 ML/MIN/1.73 SQ METERS. CHRONIC KIDNEY DISEASE: <60mL/MIN/1.73 SQ METERS KIDNEY FAILURE: <15mL/MIN/1.73 SQ METERS THIS TEST SHOULD ONLY BE USED FOR PATIENTS 18 YEARS OF AGE AND OLDER. Globulin (S) [Mass/Vol] 4.1 g/dL High 1.5 - 3.8 [facility] Comment on above: Performed By: #### 2 17542 #### [facility],[address] [place] [address] 18998 Glucose [Mass/Vol] 169 mg/dL High 74 - 106 [facility] Comment on above: Performed By: #### 2 41937 #### [facility],[address] [place] [address] 95445 Potassium [Moles/Vol] 3.8 mmol/L Normal 3.5 - 5.1 [facility] Comment on above: Performed By: #### 2 03025 #### [facility],[address] [place] [address] 23170 Protein [Mass/Vol] 7.6 g/dL Normal 6.4 - 8.2 [facility] Comment on above: Performed By: #### 2 07358 #### [facility],[address] [place] [address] 20770 Sodium [Moles/Vol] 134 mmol/L Low 136 - 145 [facility] Comment on above: Performed By: #### 2 29245 #### [facility],[address] [place] [address] 73847 Urea nitrogen [Mass/Vol] 21 mg/dL High 7 - 18 [facility] Comment on above: Performed By: #### 2 31968 #### [address] [address] HEMOGLOBIN A1C (POM)on 01-26 Glucose [Mass/Vol] 185.8 mg/dL High 0.0 - 0.0 [facility] Comment on above: Result Comment: BLDo HEMOGLOBIN A1C REFERENCE RANGESBLDo Suggested Diagnosis HbA1c(%) HbA1C (mmol/mol Diabetic >/=6.5 >/=48 Prediabetes 5.7 - 6.4 39 - 47 Normal <5.7 <39 Performed By: #### 2 64866 #### [facility],[address] [place] [address] 21953 HbA1c (Bld) [Mass fraction] 8.1 % High 0.0 - 6.5 [facility] Comment on above: Performed By: #### 2 17532 #### [facility],[address] [place] [address] 50217 LIPID PROFILEon 01-26-2025 Cholesterol [Mass/Vol] 87 mg/dL Normal 0 - 240 [facility] Comment on above: Performed By: #### 2 39884 #### [facility],[address] [place] [address] 88410 Cholesterol in HDL [Mass/Vol] 29 mg/dL Low 40 - 60 [facility] Comment on above: Performed By: #### 2 29360 #### [facility],[address] [place] [address] 12202 Cholesterol in LDL [Mass/Vol] 14 mg/dL Normal 0 - 129 [facility] Comment on above: Performed By: #### 2 12753 #### [facility],[address] [place] [address] 58997 Cholesterol.total/Cho lesterol in HDL [Mass ratio] 3.0 {ratio} Normal 0.0 - 5.0 [facility] Comment on above: Performed By: #### 2 67006 #### [facility],[address] [place] [address] 84627 Lipid 1996 panel Normal [facility] Comment on above: Result Comment: LIPI D PROFILE Performed By: #### 2 20924 #### [facility],[address] [place], [place] [address] 73334 Triglyceride [Mass/Vol] 219 mg/dL High 0 - 150 [facility] Comment on above: Performed By: #### 2 39895 #### [facility],[address] [place] [address] 62028 TSHon 01-26-2025 TSH Qn 0.91 m[IU]/L Normal 0.35 - 3.74 [facility] Comment on above: Performed By: #### 2 87261 #### [facility],[address] [place] [address] 13948 URIC ACIDon 01-26-2025 Urate [Mass/Vol] 3.8 mg/dL Normal 3.5 - 7.2 [facility] Comment on above: Performed By: #### 2 31145 #### [facility],[address] [place] [address] 06067 URINALYSISon 01-26-2025 Bilirubin Ql (U) Negative Normal NORMAL: NEGATIVE [facility] Comment on above: Performed By: #### 2 36866 #### [facility],[address] [place] [address] 36197 Clarity (U) clear Normal NORMAL: CLEAR [facility] Comment on above: Performed By: #### 2 97398 #### [facility],[address] [place] [address] 16643 Color (U) yellow Normal NORMAL: YELLOW [facility] Comment on above: Performed By: #### 2 22002 #### [facility],[address] [place] [address] 27467 Glucose Ql (U) 50 Abnormal NORMAL: NORMAL [facility] Comment on above: Performed By: #### 2 43872 #### [facility],[address] [place] [address] 46784 Hemoglobin Ql (U) Negative Normal NORMAL: NEGATIVE [facility] Comment on above: Performed By: #### 2 63405 #### [facility],[address] [place] [address] 95358 Ketone Negative Normal NORMAL: NEGATIVE [facility] Comment on above: Performed By: #### 2 98359 #### [facility],[address] [place], [place] [address] Leukocytes Negative Normal NORMAL: NEGATIVE [facility] Comment on above: Performed By: #### 2 10409 #### [facility],[address] [place] [address] Nitrite Ql (U) Negative Normal NORMAL: NEGATIVE [facility] Comment on above: Performed By: #### 2 49733 #### [facility],[address] [place] [address] pH (U) 6 [pH] Normal NORMAL: 5.0-8.0 [facility] Comment on above: Performed By: #### 2 06779 #### [facility],[address] [place] [address] Protein Ql (U) 30 Abnormal NORMAL: NEGATIVE [facility] Comment on above: Performed By: #### 2 03731 #### [facility],[address] [place] [address] Sp [place] 1.010 Normal NORMAL: 1.010-1.030 [facility] Comment on above: Performed By: #### 2 49385 #### [facility],[address] [place] [address] Specimen Type R Normal [facility] Comment on above: Performed By: #### 2 76335 #### [facility],[address] [place] [address] Urinalysis dipstick W Reflex Microscopic panel (U) NOT INDICATED Normal [facility] Comment on above: Performed By: #### 2 04264 #### [facility],[address] [place] [address] Urobilinog 1 Abnormal NORMAL: NORMAL [facility] Comment on above: Performed By: #### 2 14753 #### [facility],[address] [place] [address] URINE MICROALBUMIN W/CREATIN INE, RANDOMon 01-26-2025 CREATININE UR 112.16 mg/dl Normal [facility] Comment on above: Performed By: #### 2 55994 #### [facility],[address] [place] [address] 89268 MICROALBUMIN UR 8.3 mg/dL Normal 0.1 - 25.1 [facility] Comment on above: Performed By: #### 2 83773 #### [facility],[address] [place] [address] 01659 UACR 74 mg/g Normal [facility] Comment on above: Performed By: #### 2 44802 #### [facility],[address] [place] [address] 07079 US Abdomenon 12-09-2024 These images are not reportable by radiology and will not be interpreted by Radiologists. IMAGING Study Interpretation of outs suzanne studyon 11-01-2024 Outside images for comparison or treatment purposes, not interpreted by Radiologists. IMAGING L Inj/Asp: R subacromial bur saon 10-29-2024 Mercy Echols MD 10/29/2024 9:38 AM L Inj/Asp: R subacromial bursa on 10/29/2024 9:37 AM Indications: pain Details: ultrasound-guided anterior approach Medications: 2.5 mg triamcinolone acetonide 40 mg/mL Procedure, treatment alternatives, risks and benefits explained, specific risks discussed. Immediately prior to procedure a time out was called to verify the correct patient, procedure, equipment, retail support specialist and site/side marked as required. Patient was prepped and draped in the usual sterile fashion. [facility] Work Phone: [facility] Work Phone: US Abdomenon 10-29-2024 These images are not reportable by radiology and will not be interpreted by Radiologists. IMAGING ED MED ADMINISTRATION DETAIL on 10-06-2024 ED MED ADMINISTRATION DETAIL Analytics Developer Medication Administration Record [address] [place] [address] [id number] 10/05/2024 Patient: SIVAKUMAR CARLOS Sex: Male : 1960 Age: 63y MEASUREMENTS: Wt: 87.1 kg, Ht/Oneil: 71.0 in, BMI: 26.78 ALLERGIES: No known drug allergies Medication Ordered Medication Administration Date/Time 1 of 1 Normal [facility] ED NURSES CLINICAL NOTEon ED NURSES CLINICAL NOTE Nurse Narrative Nurse Clinical Narrative [facility] [address] [place] [address] [phone] 10/05/2024 Patient: SIVAKUMAR CARLOS Sex: Male : 1960 Age: 63y Primary Insurance: [employer] OUTPATIENT Policy Number: [id number] Group Number: [id number] Subscriber: Other Disposition: Discharge to Home Disposition [...] pregabalin 300 mg capsule -- 20:54 10/05/24 EDT Hannah Oliver R.N.Updated through eRx -- 20:57 10/05/24 EDT Hannah Oliver R.N. metoprolol tartrate 25 mg tablet -- 20:54 10/05/24 EDT Hannah Oliver R.N.Updated through eRx -- 20:57 10/05/24 EDT Hannah Oliver R.N. metformin ER 750 mg tablet,extended release 24 hr -- 20:54 10/05/24 EDT Hannah Oliver R.N.Updated through eRx -- 20:57 10/05/24 EDT Hannah Oliver R.N. glipizide ER 10 mg tablet, extended release 24 hr -- 20:54 10/05/24 EDRory Oliver R.N.Updated through eRx -- 20:57 10/05/24 EDT Hannah Oliver R.N. duloxetine 60 mg capsule,delayed release -- 20:10/05/24 EDRory Oliver R.N.Updated through eRx -- 20:57 10/05/24 EDT Hannah Oliver R.N. aspirin 81 mg chewable tablet: [...] BY MOUTH TWICE DAILY -- 20:57 10/05/24 YAMILETHT Hannah Oliver R.N. metformin ER 750 mg tablet,extended release 24 hr: TAKE ONE TABLET BY MOUTH TWICE DAILY -- 20:57 10/05/24 MACIE Oliver R.N. glipizide ER 10 mg tablet, extended release 24 hr: TAKE ONE TABLET BY MOUTH DAILY IN THE MORNING FOR diabetes -- 20:57 10/05/24 MACIE Oliver R.N. duloxetine 60 mg capsule,delayed release: TAKE ONE CAPSULE BY MOUTH DAILY -- 20:57 10/05/24 MACIE Oliver R.N. Allergies: no known drug allergies -- 20:44 10/05/24 MACIE Oliver R.N. Problems: Diabetes Mellitus -- 20:44 10/05/24 MACIE Oliver R.N. Myocardial Infarction -- 20:45 10/05/24 MACIE Oliver R.N. Hypercholesterolemia -- 20:46 10/05/24 MACIE Oliver R.N. ADDITIONAL SURGERIES: Coronary Artery Bypass Graft: Performed 2014. Triple -- 20:45 10/05/24 MACIE Oliver R.N. 2 of 4 Nurse Narrative Eye Surgery -- 20:45 10/05/24 MACIE Oliver R.N. Back Surgery. Right Stimulator -- 20:47 10/05/24 MACIE Oliver R.N. Tonsillectomy -- 20:47 10/05/24 MACIE Oliver R.N. Adenoidectomy -- 20:47 10/05/24 MACIE Oliver R.N. History 20:42 10/05/24. SOCIAL HX: [...] No risk factors identified. -- 20:51 10/05/24 EDT Hannah Oliver R.N. Interventions 20:42 10/05/24. Advanced care [...] (more content not included)... Normal [facility] ED ORDER SHEET (CPOE ONLY)on 10-06-2024 ED ORDER SHEET (CPOE ONLY) Order Sheet Order Sheet [address] [address] [id number] 10/05/2024 Patient: SIVAKUMAR CARLOS Sex: Male : 1960 Age: 63y MEASUREMENTS: Wt: 87.1 kg, Ht/Oneil: 71.0 in, BMI: 26.78 ALLERGIES: No known drug allergies MEDICATION/IV/DRIP/FL UID ORDERS Order Description Priority Entered Acknowledged Completed [...] EDT)] 1 of 1 Normal [facility] ED PHYSICIAN CLINICAL REPORT on 10-06-2024 ED PHYSICIAN CLINICAL REPORT Narrative Physician Clinical Narrative [address] [address] [id number] 10/05/2024 Patient: SIVAKUMAR CARLOS Sex: Male : 1960 Age: 63y Primary Insurance: [employer] OUTPATIENT Policy Number: [id number] Group Number: [id number] Subscriber: Other Disposition: Discharge to Home Disposition [...] PAST HISTORY See nurses notes. Diabetes Mellitus Hypercholesterolemia Myocardial Infarction Surgeries: Adenoidectomy Back Surgery: Body [...] X-Rays: (Old right clavicle fracture. No acute fracture/dislocation by my reading.). Right shoulder negative. The [...] for the 1st time on November 06 of Narrative 8th. Used to see Dr. Ackerman and Swapna Doe at [facility] (more content not included)... Normal [facility] ED SUPER BILLon 10-06-2024 ED SUPER BILL [address] [address] [id number] 10/05/2024 Patient: SIVAKUMAR CARLOS Sex: Male : 1960 Age: 63y Item Professional Category Description Facility Code Code Quantity Fee Total Nurse/E/M EMERGENCY 943352 1 $0.00 $0.00 DEPARTMENT VISIT MODERATE SEVERITY (20021-42) Grand Total $0.00 Providers Lul Chi D.O. Chief Complaint UPPER EXTREMITY PAIN and ; PROBLEM IN THE RIGHT SHOULDER. Principal Diagnosis Sprain of the right rotator cuff. ICD-10 Codes 1 of 2 [facility] S43.421A: Sprain of right rotator cuff capsule, initial encounter 2 of 2 Normal [facility] ED VISIT SUMMARYon ED VISIT SUMMARY Visit Overview Visit Overview [address] [address] [id number] 10/05/2024 Patient: SIVAKUMAR CARLOS Sex: Male : 1960 Age: 63y 10/06/2024 [...] PAST MEDICAL HISTORY / PROBLEMS Diabetes Mellitus Hypercholesterolemia Myocardial Infarction See nurses notes PAST SURGICAL [...] CUFF 3 of 3 Normal [facility] ED VITALS FLOW SHEETon 10-06 ED VITALS FLOW SHEET Vitals Vital Sign Flow Sheet [place] [address] [place] [address] [id number] 10/05/2024 Patient: SIVAKUMAR CARLOS Sex: Male : 1960 Age: 63y Measurements Wt: 87.1 kg, Ht/Oneil: 71.0 in, BMI: 26.78 Measured Time BP MAP HR RR O2Sat ETCO2 Temp Pain GCS RTS 20:49 10/05/2024 152/95 114 74 16 92% RA 97.6 F 3 1 of 1 Normal [facility] SHOULDER COMPLETE RTon 10-05 SHOULDER COMPLETE RT [address] [address] Patient: SIVAKUMAR CARLOS Phone#: : 1960 Age: 63 Gender: M Pt. Type: ER Account: [id number] Location: [facility] Ordering: LUL CHI Exam Date: 10/05/2024/21:48 Family Phys: Charge Code: 346168 Physician: Roane Order #: [id number] Dose#: PROCEDURE: X-RAY SHOULDER COMPLETE RT MIN 2 VIEWS COMPARISON: [facility], XR, CHEST 2 VIEWS, 10/14/2023, 7:19. INDICATIONS: [...] on 10/06/2024 at 9:41 Normal [facility] CBC + DIFFon 07-19-2024 Baso # 0.04 x10EE3/UL Normal 0.00 - 0.10 [facility] Comment on above: Performed By: #### 2 84020 #### [facility],[address] [place] [address] 17974 Basophils/100 WBC (Bld) 0.4 % Normal 0.0 - 2.0 [facility] Comment on above: Performed By: #### 2 66943 #### [facility],[address] [place] [address] CBC + DIFF Normal [facility] Comment on above: Result Comment: CBC- COMPLETE BLOOD COUNT Performed By: #### 2 49876 #### [facility],[address] [place] [address] 29859 EO # 0.13 x10EE3/UL Normal 0.00 - 0.50 [facility] Comment on above: Performed By: #### 2 12074 #### [facility],[address] [place] [address] 44565 Eosinophils/100 WBC (Bld) 1.2 % Normal 0.0 - 7.0 [facility] Comment on above: Performed By: #### 2 50807 #### [facility],[address] [place], [place] [address] Erythrocyte distribution width (RBC) [Ratio] 13.0 % Normal 12.0 - 15.6 [facility] Comment on above: Performed By: #### 2 40304 #### [facility],[address] [place] [address] 44313 Hematocrit (Bld) [Volume fraction] 45.9 % Normal 40.0 - 52.0 [facility] Comment on above: Performed By: #### 2 68667 #### [facility],[address] [place] [address] 66160 Hemoglobin (Bld) [Mass/Vol] 15.6 g/dL Normal 13.0 - 17.5 [facility] Comment on above: Performed By: #### 2 64399 #### [facility],[address] [place] [address] 29839 Lymph # 2.36 x10EE3/UL Normal 0.80 - 2.80 [facility] Comment on above: Performed By: #### 2 48281 #### [facility],[address] [place] [address] 51004 Lymphocytes/100 WBC (Bld) 21.7 % Normal 20.0 - 45.0 [facility] Comment on above: Performed By: #### 2 30266 #### [facility],[address] [place] [address] 68224 MANUAL DIFF N/A Normal [facility] Comment on above: Performed By: #### 2 42414 #### [facility],[address] [place] [address] 99025 MCH (RBC) [Entitic mass] 31 pg Normal 27 - 33 [facility] Comment on above: Performed By: #### 2 46904 #### [facility],[address] [place] [address] MCHC 34 X10 3 Normal 32 - 36 [facility] Comment on above: Performed By: #### 2 41198 #### [facility],[address] [place] [address] 67565 MCV (RBC) [Entitic vol] 92 fL Normal 81 - 98 [facility] Comment on above: Performed By: #### 2 83782 #### [facility],[address] [place] [address] 08189 Waldo # 0.85 x10EE3/UL Normal 0.20 - 1.00 [facility] Comment on above: Performed By: #### 2 27390 #### [facility],[address] [place] [address] 53343 MONOS % 7.8 % Normal 0.0 - 10.0 [facility] Comment on above: Performed By: #### 2 81928 #### [facility],[address] [place] [address] 01172 Morphology Shamir (Bld) [Interp] N/A Normal [facility] Comment on above: Performed By: #### 2 63018 #### [facility],[address] [place] [address] 23354 Neut # 7.51 x10EE3/UL High 1.50 - 7.10 [facility] Comment on above: Performed By: #### 2 13818 #### [facility],[address] [place] [address] 17803 Neutrophils/100 WBC (Bld) 69.0 % Normal 46.0 - 76.0 [facility] Comment on above: Performed By: #### 2 74201 #### [facility],[address] [place] [address] 72161 PLATELET 250 x10EE3/UL Normal 150 - 450 [facility] Comment on above: Performed By: #### 2 94813 #### [facility],[address] [place] [address] 70316 Platelet mean volume (Bld) [Entitic vol] 9.8 fL Normal 6.4 - 10.5 [facility] Comment on above: Result Comment: AUTO MATED DIFFERENTIAL Performed By: #### 2 71474 #### [facility],[address] [place] [address] 54582 RBC 4.98 x 10EE6/UL Normal 4.50 - 6.00 [facility] Comment on above: Performed By: #### 2 37933 #### [facility],[address] [place] [address] 55575 WBC 10.9 x 10EE3/UL High 4.5 - 10.8 [facility] Comment on above: Performed By: #### 2 16957 #### [facility],[address] [place] [address] 34788 CMP with eGFRon 07-19-2024 AGE 63 years Normal [facility] Comment on above: Performed By: #### 2 80419 #### [facility],[address] [place] [address] 91371 Albumin [Mass/Vol] 4.0 g/dL Normal 3.4 - 5.0 [facility] Comment on above: Performed By: #### 2 03703 #### [facility],[address] [place] [address] 30234 Albumin/Globulin [Mass ratio] 1.3 {ratio} Normal 0.9 - 1.6 [facility] Comment on above: Performed By: #### 2 26396 #### [facility],[address] [place] [address] 02414 ALK PHOS 58 U/L Normal 46 - 116 [facility] Comment on above: Performed By: #### 2 43561 #### [facility],[address] [place] [address] 93633 ALT [Catalytic activity/Vol] 38 U/L Normal 16 - 63 [facility] Comment on above: Performed By: #### 2 59317 #### [facility],[address] [place] [address] 46348 Anion gap [Moles/Vol] 13 mmol/L Normal 10 - 20 [facility] Comment on above: Performed By: #### 2 54745 #### [facility],[address] [place] [address] 90339 AST [Catalytic activity/Vol] 27 U/L Normal 15 - 37 [facility] Comment on above: Performed By: #### 2 93606 #### [facility],[address] [place] [address] 44345 B/C RATIO 16 ratio Normal 0 - 30 [facility] Comment on above: Performed By: #### 2 85092 #### [facility],[address] [place] [address] 56432 Bilirubin [Mass/Vol] 0.4 mg/dL Normal 0.2 - 1.0 [facility] Comment on above: Performed By: #### 2 72030 #### [facility],[address] [place] [address] 26650 Calcium [Mass/Vol] 9.1 mg/dL Normal 8.5 - 10.1 [facility] Comment on above: Performed By: #### 2 89164 #### [facility],[address] [place], [place] [address] Chloride [Moles/Vol] 103 mmol/L Normal 98 - 107 [facility] Comment on above: Performed By: #### 2 91922 #### [facility],[address] [place], [place] [address] CMP with eGFR Normal [facility] Comment on above: Result Comment: COMP REHENSIVE METABOLIC PANEL Performed By: #### 2 97879 #### [place] [address] CO2 [Moles/Vol] 27.1 mmol/L Normal 21.0 - 32.0 [facility] Comment on above: Performed By: #### 2 99704 #### [facility],[address] [place] [address] Creatinine [Mass/Vol] 0.94 mg/dL Normal 0.70 - 1.30 [facility] Comment on above: Performed By: #### 2 46329 #### [facility],[address] [place] [address] GFR/1.73 sq M.predicted among non-blacks MDRD (S/P/Bld) [Vol rate/Area] mL/min/{1.73_m2} Normal 60 - 999 [facility] Comment on above: Performed By: #### 2 38838 #### [place] [address] Result Comment: ACCO RDING TO THE NATIONAL KIDNEY DISEASE EDUCATION PROGRAM(NKDE), A NORMAL eGFR IS A VALUE GREATER THAN OR EQUAL TO 60 ML/MIN/1.73 SQ METERS. CHRONIC KIDNEY DISEASE: <60mL/MIN/1.73 SQ METERS KIDNEY FAILURE: <15mL/MIN/1.73 SQ METERS THIS TEST SHOULD ONLY BE USED FOR PATIENTS 18 YEARS OF AGE AND OLDER. Globulin (S) [Mass/Vol] 3.0 g/dL Normal 1.5 - 3.8 [facility] Comment on above: Performed By: #### 2 10936 #### [facility],[address] [place] [address] 44862 Glucose [Mass/Vol] 187 mg/dL High 74 - 106 [facility] Comment on above: Performed By: #### 2 97124 #### [facility],[address] [place] [address] 41136 Potassium [Moles/Vol] 4.5 mmol/L Normal 3.5 - 5.1 [facility] Comment on above: Performed By: #### 2 85932 #### [facility],[address] [place] [address] 44073 Protein [Mass/Vol] 7.0 g/dL Normal 6.4 - 8.2 [facility] Comment on above: Performed By: #### 2 45009 #### [facility],[address] [place] [address] 98010 Sodium [Moles/Vol] 139 mmol/L Normal 136 - 145 [facility] Comment on above: Performed By: #### 2 11395 #### [facility],[address] [place] [address] 14013 Urea nitrogen [Mass/Vol] 15 mg/dL Normal 7 - 18 [facility] Comment on above: Performed By: #### 2 64907 #### [facility],[address] [place] [address] 11749 HEMOGLOBIN A1C (POM)on 07-19 Glucose [Mass/Vol] 168.6 mg/dL High 0.0 - 0.0 [facility] Comment on above: Result Comment: BLDo HEMOGLOBIN A1C REFERENCE RANGESBLDo Suggested Diagnosis HbA1c(%) HbA1C (mmol/mol Diabetic >/=6.5 >/=48 Prediabetes 5.7 - 6.4 39 - 47 Normal <5.7 <39 Performed By: #### 2 08441 #### [address],[place] [address] HbA1c (Bld) [Mass fraction] 7.5 % High 0.0 - 6.5 [facility] Comment on above: Performed By: #### 2 74946 #### [facility],[address] [place] [address] 99929 LIPID PROFILEon 07-19-2024 Cholesterol [Mass/Vol] 97 mg/dL Normal 0 - 240 [facility] Comment on above: Performed By: #### 2 92451 #### [facility],[address] [place] [address] 08881 Cholesterol in HDL [Mass/Vol] 40 mg/dL Normal 40 - 60 [facility] Comment on above: Performed By: #### 2 19047 #### [facility],[address] [place] [address] 01877 Cholesterol in LDL [Mass/Vol] 35 mg/dL Normal 0 - 129 [facility] Comment on above: Performed By: #### 2 34328 #### [facility],[address] [place] [address] 20662 Cholesterol.total/Cho lesterol in HDL [Mass ratio] 2.4 {ratio} Normal 0.0 - 5.0 [facility] Comment on above: Performed By: #### 2 81185 #### [facility],[address] [place] [address] 97985 Lipid 1996 panel Normal [facility] Comment on above: Result Comment: LIPI D PROFILE Performed By: #### 2 89708 #### [facility],[address] [place] [address] 62929 Triglyceride [Mass/Vol] 108 mg/dL Normal 0 - 150 [facility] Comment on above: Performed By: #### 2 95583 #### [facility],[address] [place] [address] 20455 .Auto Diffon 11-13-2023 Basophil, Absolute 0.0 10 3/mcL Normal 0.0-0.2 [facility] Comment on above: Performed By: #### C BC, ANEU, ADIFF #### [address] [address] Basophils/100 WBC (Bld) 0.2 % Normal 0.0-2.5 [facility] ([place]) Comment on above: Performed By: #### C BC, ANEU, ADIFF #### [address] [address] Eosinophil, Absolute 0.0 10 3/mcL Normal 0.0-0.4 [facility] ([place]) Comment on above: Performed By: #### C BC, ANEU, ADIFF #### [address] [address] Eosinophils/100 WBC (Bld) 0.2 % Normal 0.0-7.0 [facility] ([place]) Comment on above: Performed By: #### C BC, ANEU, ADIFF #### [address] [address] Lymphocyte, Absolute 3.5 10 3/mcL Normal 0.8-3.9 [facility] ([place]) Comment on above: Performed By: #### C BC, ANEU, ADIFF #### [address] [address] Lymphocytes/100 WBC (Bld) 18.6 % Normal 10.0-50.0 [facility] ([place]) Comment on above: Performed By: #### C BC, ANEU, ADIFF #### [address] [address] Monocyte, Absolute 1.8 10 3/mcL High 0.2-1.0 [facility] ([place]) Comment on above: Performed By: #### C BC, ANEU, ADIFF #### [address] [address] Monocytes/100 WBC (Bld) 9.3 % Normal 1.7-13.0 [facility] ([place]) Comment on above: Performed By: #### C BC, ANEU, ADIFF #### [address] [address] Neutrophils/100 WBC (Bld) 71.7 % Normal 37.0-80.0 [facility] ([place]) Comment on above: Performed By: #### C ROB TORRES ADIFF #### [address] [address] .GFRon 11-13-2023 GFR 109 ml/min/1.73sqm Normal [facility] ([place] Comment on above: Result Comment: GFR Population [...] 15 mL/min/1.73 square meters Performed By: #### G FR, BMP #### [address] [address] GFR Non- 90 ml/min/1.73sqm Normal [facility] ([place]) Comment on above: Result Comment: GFR Population [...] 15 mL/min/1.73 square meters Performed By: #### G FR, BMP #### [address] [address] .NEUABSon 11-13-2023 Neutrophil, Absolute 13.6 10 3/mcL High 2.9-6.2 [facility] ([place]) Comment on above: Performed By: #### C BC, ROB, ADLASHAUN #### [address] [address] BMPon 11-13-2023 BUN/Creatinine Ratio 20 ratio Normal 7-27 [facility] ([place]) Comment on above: Performed By: #### Lobo VIDAL, BMP #### [address] [address] Calcium [Mass/Vol] 8.7 mg/dL Normal 8.4-10.2 [facility] ([place]) Comment on above: Performed By: #### Lobo VIDAL, BMP #### [address] [address] Chloride [Moles/Vol] 102 mmol/L Normal 98-107 [facility] ([place]) Comment on above: Performed By: #### Lobo VIDAL, BMP #### [address] [address] CO2 [Moles/Vol] 27 mmol/L Normal 23-31 [facility] ([place]) Comment on above: Performed By: #### Lobo VIDAL, BMP #### [address] [address] Creatinine [Mass/Vol] 0.86 mg/dL Normal 0.70-1.30 [facility] ([place]) Comment on above: Performed By: #### Lobo VIDAL, BMP #### [address] [address] Electrolyte Balance 11.0 mEq/L Normal 4.0-15.0 [facility] ([place]) Comment on above: Performed By: #### Lobo VIDAL, BMP #### [address] [address] Glucose [Mass/Vol] 149 mg/dL High 80-115 [facility] ([place] Comment on above: Performed By: #### Lobo VIDAL, BMP #### [address] [address] Potassium [Moles/Vol] 4.1 mmol/L Normal 3.5-5.1 [facility] ([place] Comment on above: Performed By: #### G , BMP #### [address] [address] Sodium [Moles/Vol] 140 mmol/L Normal 136-145 [facility] ([place] Comment on above: Performed By: #### Lobo VIDAL, BMP #### [address] [address] Urea nitrogen [Mass/Vol] 17 mg/dL Normal 7-18 [facility] ([place] Comment on above: Performed By: #### Lobo VIDAL, BMP #### [address] [address] CBCon 11-13-2023 Erythrocyte distribution width (RBC) [Ratio] 12.9 % Normal 11.5-14.5 [facility] ([place] Comment on above: Performed By: #### C BRIAN ANEU, ADIFF #### [address] [address] Hematocrit (Bld) [Volume fraction] 42.4 % Normal 42.0-52.0 [facility] ([place] Comment on above: Performed By: #### C BRIAN ANEU, ADIFF #### [address] [address] Hgb 14.5 G/dL Normal 14.0-18.0 [facility] ([place] Comment on above: Performed By: #### C BC, ANEU, ADIFF #### [address] [address] MCH (RBC) [Entitic mass] 31.2 pg Normal 27.0-31.2 [facility] ([place] Comment on above: Performed By: #### C BC, ANEU, ADIFF #### [address] [address] MCHC 34.1 G/dL Normal 31.8-35.4 [facility] ([place] Comment on above: Performed By: #### C BC, ANEU, ADIFF #### [facility] [address] [place], [place] [address] MCV (RBC) [Entitic vol] 91.4 fL Normal 80.0-94.0 [facility] ([place] Comment on above: Performed By: #### C BC, ANEU, ADIFF #### [facility] [address] [place], [place] [address] Platelet 198 10 3/mcL Normal 130-400 [facility] ([place]) Comment on above: Performed By: #### C BC, ANEU, ADIFF #### [address] [place], [place] [address] Platelet mean volume (Bld) [Entitic vol] 9.3 fL Normal 7.4-10.4 [facility] ([place] Comment on above: Performed By: #### C BC, ANEU, ADIFF #### [address] [address] RBC 4.64 10 6/mcL Normal 4.04-6.13 [facility] ([place]) Comment on above: Performed By: #### C BC, ANEU, ADIFF #### [address] [address] WBC 18.9 10 3/mcL High 4.6-10.8 [facility] ([place] Comment on above: Performed By: #### C BC, ANEU, ADIFF #### [address] [address] LABORATORYOrdered By: SYSTEM SYSTEM on 11-13-2023 Basophil, [...] [#/Vol] 18.9 103/mcL High 4.6 - 10.8 10^3/[facility] AO Workflow SS LABORATORYOrdered By: Kai Carvajal on 11-12-2023 Glucose [Mass/Vol] 148 mg/dL High 82 - 115 mg/dL [facility] XR FLUORO < 1HR TECH TIMEon 11-12-2023 XR FLUORO < 1HR TECH TIME ORIGINAL Images acquired, not reported on this accession number. Normal [facility] ([place] Hemoglobin A1con 07-27-2021 Glucose [Mass/Vol] 192 mg/dL Normal [facility] Comment on above: Performed By: #### H MATEO1C #### [facility] Routine Lab [address] [phone] HbA1c (Bld) [Mass fraction] 8.3 % High 4.3-5.6 [facility] Comment on above: Performed By: #### H MATEO1C #### [facility] Cute Attack Routine Lab [address] [phone] Hemoglobin A1con 04-26-2021 Glucose [Mass/Vol] 174 mg/dL Normal [facility] Comment on above: Performed By: #### H MATEO1C #### [facility] Cute Attack Routine Lab [address] [address] HbA1c (Bld) [Mass fraction] 7.7 % High 4.3-5.6 [facility] Comment on above: Performed By: #### H MATEO1C #### [facility] Routine Lab [address] [address] Hemoglobin A1con 04-21-2020 HbA1c (Bld) [Mass fraction] 9.9 % High 4.3-5.6 [facility] Comment on above: Performed By: #### H BA1C #### [facility] Cute Attack Routine Lab [address] [address] HbA1c (Bld) [Mass fraction] 237 mg/dL Normal [facility] Comment on above: Performed By: #### H BA1C #### [facility] Routine Lab [address] [place], [place] [address] Vital Signs Date Time Vital Sign Value Performing Clinician Facility 04-14-2025 11:08-0400 Body height 180.3 cm Mercy Echols MD Work Phone: [facility] 04-14-2025 11:08-0400 Body mass index (BMI) [Ratio] 27.89 kg/m2 Mercy Echols MD Work Phone: [facility] 04-14-2025 11:08-0400 Body weight 90.72 kg Mercy Echols MD Work Phone: [facility] 03-04-2025 14:51-0400 Body height 180.3 cm Ebenezer Quintanilla MD Work Phone: [facility] 03-04-2025 14:51-0400 Body mass index (BMI) [Ratio] 27.89 kg/m2 Ebenezer Quintanilla MD Work Phone: [facility] 03-04-2025 14:51-0400 Body weight 90.72 kg Ebenezer Quintanilla MD Work Phone: [facility] 03-04-2025 14:51-0400 Diastolic blood pressure 66 mm[Hg] Ebenezer Quintanilla MD Work Phone: [facility] 03-04-2025 14:51-0400 Heart rate 91 /min Ebenezer Quintanilla MD Work Phone: [facility] 03-04-2025 14:51-0400 SaO2% (BldA) [Mass fraction] 95 % Ebenezer Quintanilla MD Work Phone: [facility] 03-04-2025 14:51-0400 Systolic blood pressure 134 mm[Hg] Ebenezer Quintanilla MD Work Phone: [facility] 02-15-2025 15:23-0400 Body height 180.3 cm Georgette Chavez MD Work Phone: [facility] 02-15-2025 15:23-0400 Body mass index (BMI) [Ratio] 27.55 kg/m2 Georgette Chavez MD Work Phone: [facility] 02-15-2025 15:23-0400 Body weight 89.58 kg Georgette Chavez MD Work Phone: [facility] 02-15-2025 15:23-0400 Diastolic blood pressure 80 mm[Hg] Georgette Chavez MD Work Phone: [facility] 02-15-2025 15:23-0400 Heart rate 88 /min Georgette Chavez MD Work Phone: [facility] 02-15-2025 15:23-0400 SaO2% (BldA) [Mass fraction] 93 % Georgette Chavez MD Work Phone: [facility] 02-15-2025 15:23-0400 Systolic blood pressure 150 mm[Hg] Georgette Chavez MD Work Phone: [facility] 11-13-2023 10:32-0400 Body temperature 98.42 [degF] OLI COY DO [facility] 11-13-2023 10:32-0400 Diastolic Blood Pressure Non-Invasive 65 mm[Hg] OLI COY DO [facility] 11-13-2023 10:32-0400 Heart rate 78 /min OLI COY DO [facility] 11-13-2023 10:32-0400 Reason For Taking VItal Signs OLI COY DO [facility] 11-13-2023 10:32-0400 Respiratory rate 16 /min OLI COY DO [facility] 11-13-2023 10:32-0400 Systolic Blood Pressure Non-Invasive 128 mm[Hg] OLI COY DO [facility] 11-13-2023 07:51-0400 Heart rate 80 /min OLI COY DO [facility] 11-13-2023 06:18-0400 Body temperature 98.6 [degF] OLI COY DO [facility] 11-13-2023 06:18-0400 Diastolic Blood Pressure Non-Invasive 50 mm[Hg] OLI COY DO [facility] 11-13-2023 06:18-0400 Heart rate 81 /min OLI COY DO [facility] 11-13-2023 06:18-0400 Reason For Taking VItal Signs OLI COY DO [facility] 11-13-2023 06:18-0400 Respiratory rate 16 /min OLI COY DO [facility] 11-13-2023 06:18-0400 Systolic Blood Pressure Non-Invasive 121 mm[Hg] OLI COY DO [facility] 11-13-2023 03:47-0400 Body temperature 98.06 [degF] OLI COY DO [facility] 11-13-2023 03:47-0400 Diastolic Blood Pressure Non-Invasive 69 mm[Hg] OLI COY DO [facility] 11-13-2023 03:47-0400 Heart rate 78 /min OLI COY DO [facility] 11-13-2023 03:47-0400 Reason For Taking VItal Signs OLI COY DO [facility] 11-13-2023 03:47-0400 Respiratory rate 16 /min OLI COY DO [facility] 11-13-2023 03:47-0400 Systolic Blood Pressure Non-Invasive 105 mm[Hg] OLI COY DO [facility] 11-12-2023 22:49-0400 Heart rate 82 /min OLI COY DO [facility] 11-12-2023 18:37-0400 Heart rate 86 /min OLI COY DO [facility] 11-12-2023 16:45-0400 Heart rate 89 /min OLI COY DO [facility] 11-12-2023 14:30-0400 Heart rate 80 /min OLI COY DO [facility] 11-12-2023 10:42-0400 Body height 180.34 cm OLI COY DO [facility] 11-12-2023 10:42-0400 Body weight 82.27 kg OLI COY DO [facility] 11-12-2023 10:42-0400 Body weight 25.3 kg/m2 OLI COY DO [facility] 11-12-2023 09:10-0400 Body temperature 97.34 [degF] OLI COY DO [facility] 11-12-2023 09:05-0400 Respiratory Rate - Anes 13 br/min OLI COY DO [facility] 05-08-2024 09:00-0400 Respiratory Rate - Anes 12 br/min OLI COY DO [facility] 11-12-2023 08:55-0400 Respiratory Rate - Anes 13 br/min OLI COY DO [facility] 11-12-2023 06:34-0400 Body height 180.34 cm OLI COY DO [facility] 11-12-2023 06:34-0400 Body temperature 97.88 [degF] OLI COY DO [facility] 11-12-2023 06:34-0400 Body weight 82.27 kg OLI COY DO [facility] 11-12-2023 06:34-0400 Heart rate 76 /min OLI COY DO [facility] 11-05-2023 10:00-0400 Blood Pressure Location OLI COY DO [facility] 11-05-2023 10:00-0400 Body height 180.3 cm OLI COY DO [facility] 11-05-2023 10:00-0400 Body weight 82.3 kg OLI COY DO [facility] 11-05-2023 10:00-0400 Body weight 25.32 kg/m2 OLI COY DO [facility] 11-05-2023 10:00-0400 Diastolic Blood Pressure Non-Invasive 82 mm[Hg] OLI COY DO [facility] 11-05-2023 10:00-0400 Heart rate 76 /min OLI COY DO [facility] 11-05-2023 10:00-0400 Respiratory rate 20 /min OLI BENDERTS DO [facility] 11-05-2023 10:00-0400 Systolic Blood Pressure Non-Invasive 133 mm[Hg] OLI COY DO [facility] Encounters Encounter Date Encounter Type Care Provider Facility Start: 05-16-2025 End: 05-16-2025 ambulatory Georgette Scott Facility:[facility] Start: 05-16-2025 End: 05-16-2025 ambulatory [facility] Facility:[facility] [place] [place] Start: 05-16-2025 ambulatory [facility] Facility: [facility] Start: 05-12-2025 End: 05-12-2025 Office outpatient visit 25 minutes Mercy Echols MD Work Phone: [facility] Comment on above: Chronic right should er pain Start: 05-12-2025 End: 05-12-2025 Subsequent hospital visit by physician [facility] Comment on above: Arrived Start: 05-10-2025 ambulatory Bahman Polanco ty:[facility] Start: 05-10-2025 End: 05-10-2025 Subsequent hospital visit by physician [facility] Comment on above: Chronic right should er pain Start: 04-14-2025 End: 04-14-2025 Office outpatient visit 25 minutes Mercy Echols MD Work Phone: [facility] Comment on above: Chronic right should er pain Start: 04-14-2025 End: 04-14-2025 Subsequent hospital visit by physician [facility] Comment on above: Arrived Start: 03-30-2025 End: 04-19-2025 ambulatory BAHMAN MARINA [facility] Start: 03-25-2025 End: 03-25-2025 Subsequent hospital visit by physician Farooq Cano [address] [place] [address] Comment on above: Cigarette smoker Start: 03-15-2025 End: 04-18-2025 ambulatory MERCY ECHOLS [facility] Start: 03-04-2025 End: 03-04-2025 Office outpatient new 45 minutes Ebenezer Quintanilla MD Work Phone: [facility] Comment on above: Type 2 diabetes qian itus with other specified complication, with long-term current use of insulin (Primary Dx); Dizziness and giddiness; Lightheadedness; Hypertension, unspecified type; Hyperlipidemia, unspecified hyperlipidemia type; Cigarette nicotine dependence with nicotine-induced disorder; Atherosclerosis; History of coronary artery bypass graft x 3 Start: 03-03-2025 End: 03-03-2025 Office outpatient visit 25 minutes Mercy Echols MD Work Phone: [facility] Comment on above: Right shoulder pain, unspecified chronicity Start: 03-03-2025 End: 03-03-2025 Subsequent hospital visit by physician [facility] Comment on above: Arrived Right shoulder pain, unspecified chronicity Start: 02-22-2025 ambulatory JERO MADSEN HAWA [facility] Start: 02-15-2025 End: 02-15-2025 Office outpatient new 30 minutes Georgette Chavez MD Work Phone: [facility] Comment on above: Nicotine dependence with current use (Primary Dx); Cigarette smoker; Primary hypertension; Type 2 diabetes mellitus with hyperglycemia, without long-term current use of insulin; Major depressive disorder with single episode, in partial remission; Coronary artery disease involving coronary bypass graft of [place] heart without angina pectoris Start: 02-15-2025 End: 02-15-[address] Georgette Chavez MD Work Phone: -Radiology [facility] Start: 02-15-2025 End: 02-15-[address] Bahman Marina MD -Radiology [facility] Work Phone: Start: 02-15-2025 End: 02-15-2025 ambulatory Bahman Marina Facility:[facility] Start: 01-26-2025 End: 01-26-2025 ambulatory JERO MADSEN [facility] Start: 12-09-2024 End: 12-09-2024 Office outpatient visit 25 minutes Mercy Echols MD Work Phone: [facility] Comment on above: Right shoulder pain, unspecified chronicity Start: 12-09-2024 End: 12-09-2024 Subsequent hospital visit by physician [facility] Comment on above: Arrived Start: 11-01-2024 End: 11-01-2024 Subsequent hospital visit by physician Rad External Film [facility] Comment on above: Arrived Start: 10-29-2024 End: 10-29-2024 Subsequent hospital visit by physician [facility] Comment on above: Arrived Start: 10-29-2024 End: 10-29-2024 Office outpatient new 45 minutes Mercy Echols MD Work Phone: [facility] Comment on above: Right shoulder pain, unspecified chronicity Start: 10-05-2024 End: 10-05-2024 [facility] Start: 07-19-2024 End: 07-19-2024 ambulatory SWAPNA DE LA ROSA [facility] Start: 11-12-2023 End: 11-13-2023 ambulatory W[place]LEY [place] [employer] Facility:[facility] Start: 11-12-2023 End: 11-13-2023 Observation OLI COY DO [facility] Start: 11-05-2023 End: 11-06-2023 ambulatory OLI COY DO Facility:[facility] Start: 11-05-2023 End: 11-05-2023 Admission to establishment OLI COY DO [facility] Procedures Date Procedure Procedure Detail Performing Clinician Start: 05-12-2025 Arthrocentesis aspir &/inj major jt/bursa w/us Mercy Echols MD Work Phone: Start: 05-12-2025 US Abdomen Mercy ordonez MD Work Phone: Start: 05-10-2025 Mri any jt upper ext remity w/o contrast matrl Mercy Echols MD Work Phone: Start: 04-14-2025 US Abdomen Mercy ordonez MD Work Phone: Start: 03-25-2025 CT Chest for screening Georgette Chavez MD Work Phone: Start: 03-04-2025 Ecg routine ecg w/le ast 12 lds w/i&r Ebenezer Rogelio Quintanilla MD Work Phone: Start: 03-03-2025 US Abdomen Mercy ordonez MD Work Phone: Start: 02-15-2025 X-ray of cervical spine Dr. Georgette Chavez MD Work Phone: Start: 01-26-2025 Urinalysis YAGIA OMR AN Comment on above: Result Comment: URIN ALYSIS Performed By: #### [id number] #### [facility],[address] [place] [address] Start: 12-09-2024 US Abdomen Mercy ordonez MD Work Phone: Start: 11-01-2024 Study Interpretation of outside study Mercy Echols MD Work Phone: Start: 10-29-2024 Arthrocentesis aspir &/inj major jt/bursa w/us Mercy Echols MD Work Phone: Start: 10-29-2024 US Abdomen Mercy ordonez MD Work Phone: Start: 10-10-2020 Injection into lumba r epidural space OLI COY DO Comment on above: L4-L5 Start: 09-11-2020 Fluoroscopy guided injection of bilateral facet joints of lumbar spine OLI COY DO Start: 07-07-2014 Coronary artery bypa ss grafts x 3 OLI COY DO Start: 07-07-2001 Placement of stent i n cardiac conduit OLI COY DO Comment on above: 2006 Cataract (disorder) OLI COY DO Comment on above: 2017, with insertion of prosthetic lens, bilateral History of coronary artery bypass grafting History of coronary artery bypass graft x 3 Ebenezer Quintanilla MD Work Phone: Neurostimulation of spinal cord tissue OLI COY DO Comment on above: trial Tonsillectomy OLI COY DO Plan of Treatment Date Care Activity Detail Author Start: 03-02-2026 End: 03-02-2026 Patient encounter procedure 03/02/2026 2:00 PM EDT Office Visit [facility] Office [facility] [address] [place] [phone] Ebenezer Holliday MD [address] [place] [address] [facility] Start: 06-23-2025 End: 06-23-2025 Patient encounter procedure 06/23/2025 9:15 AM EST Office Visit [facility] [address] [place] [phone] Mercy Echols MD [address] [place] [address] [facility] Start: 05-18-2025 End: 05-18-2025 Patient encounter procedure 05/18/2025 3:00 PM EST Office Visit [facility] [address] [place] [phone] Georgette Chavez MD [address] [facility], [address] [place] [address] [facility] Start: 05-12-2025 End: 05-12-2025 Patient encounter procedure 05/12/2025 9:00 AM EST Office Visit [facility] [address] [place] [address] Mercy Echols MD [address] [place] [address] [facility] Start: 04-14-2025 End: 04-14-2025 Patient encounter procedure 04/14/2025 11:30 AM EDT Office Visit [facility] [address] [place] [address] Mercy Echols MD [address] [place] [phone] [facility] Start: 03-10-2025 End: 03-10-2025 Patient encounter procedure 03/10/2025 2:00 PM EDT Appointment [address] [phone] [facility] Start: 03-07-2025 COVID-19 Vaccine ( season) COVID-19 Vaccine ( season) [facility] Start: 03-07-2025 COVID-19 Vaccine ( season) COVID-19 Vaccine ( season) [facility] Start: 03-07-2025 Influenza vaccination [facility] Start: 03-04-2025 End: 03-04-2025 Patient encounter procedure 03/04/2025 3:15 PM EDT Office Visit [facility] [address] [place] [address] Ebenezer Holliday MD [address] [place] [address] [facility] Start: 03-02-2025 End: 03-02-2025 Patient encounter procedure 03/02/2025 3:00 PM EDT Appointment [address] [phone] [facility] Start: 02-15-2025 End: 02-15-2026 CT Chest for screening CT lung screening low dose Imaging Routine Cigarette smoker Expected: 02/15/2025, Expires: 02/15/2026 [facility] Service Area Work Phone: Comment on above: Expected: 02/15/2025 , Expires: 02/15/2026 Start: 02-15-2025 End: 02-15-2026 Hemoglobin A1c/Hemoglobin.total in Blood Hemoglobin A1C Lab Routine Type 2 diabetes mellitus with hyperglycemia, without long-term current use of insulin Expected: 02/15/2025 (Approximate), Expires: 02/15/2026 [facility] Work Phone: Comment on above: Expected: 02/15/2025 (Approximate), Expires: 02/15/2026 Start: 02-04-2025 Influenza vaccination Influenza Vacc ine (#1) [facility] Start: 12-09-2024 End: 12-09-2024 Patient encounter procedure 12/09/2024 8:45 AM EDT Office Visit [facility] [address] [place] [phone] Mercy Echols MD [address] [place] [address] [facility] Start: 10-19-2024 End: 10-19-2025 XR Cervical spine 2 or 3 Views XR cervical spine 2-3 views Imaging Routine Right shoulder pain, unspecified chronicity Expected: 10/19/2024 (Approximate), Expires: 10/19/2025 [facility] Work Phone: Comment on above: Expected: 10/19/2024 (Approximate), Expires: 10/19/2025 Start: 10-19-2024 End: 10-19-2025 XR Shoulder - right 2 Views XR shoulder right 2+ views Imaging Routine Right shoulder pain, unspecified chronicity Expected: 10/19/2024 (Approximate), Expires: 10/19/2025 [facility] Service Area Work Phone: Comment on above: Expected: 10/19/2024 (Approximate), Expires: 10/19/2025 Start: 10-07-2024 Abdominal aortic ane urysm screening Abdominal Aortic Aneurysm (AAA) Screening [facility] Start: 03-07-2024 COVID-19 Vaccine ( season) COVID-19 Vaccine ( season) [facility] Start: 10-17-2023 Urine screening for protein Diabetes: Urine Protein Screening [facility] Start: 01-15-2023 Hemoglobin A1c measurement Diabetes: Hemoglobin A1C [facility] Start: 2019 RSV High Risk: (Elde rly (60+) or Population) (1 - Risk 60-74 years 1-dose series) RSV High Risk: (Elderly (60+) or Population) (1 - Risk 60-74 years 1-dose series) [facility] Start: 10-07-2009 Pneumococcal vaccination Pneum ococcal Vaccine (1 of 1 - PCV) [facility] Start: 10-07-2009 Prostate specific an tigen measurement PSA Prostate Cancer Screening [facility] Start: 10-07-2009 RSV High Risk: (Elde rly (60+) or Population) (1 - Risk 50-74 years 1-dose series) RSV High Risk: (Elderly (60+) or Population) (1 - Risk 50-74 years 1-dose series) [facility] Start: 10-07-2009 Zoster Vaccines (1 of 2) Zoste r Vaccines (1 of 2) [facility] Start: 10-07-1981 DTaP/Tdap/Td Vaccine s (1 - Tdap) DTaP/Tdap/Td Vaccines (1 - Tdap) [facility] Start: 10-07-1978 Pneumococcal vaccination Pneum ococcal Vaccine (1 of 2 - PCV) [facility] Start: 10-07-1977 Hepatitis C screening Hepatitis C Sc reening [facility] Start: 10-07-1969 Glaucoma screening Diabetes: R etinopathy Screening [facility] Start: 10-07-1960 MMR Vaccines (1 of 1 - Standard series) MMR Vaccines (1 of 1 - Standard series) [facility] Start: 1960 Cyanocobalamin vitam in b-12 Vitamin B-12 [facility] Start: 1960 Diabetes: Celiac Dis ease Screening Diabetes: Celiac Disease Screening [facility] Start: 1959 Lipid panel Lipid Panel [facility] Start: 1960 Screening for malign ant neoplasm of colon [facility] Start: 1959 Thyroid stimulating hormone measurement TSH Level [facility] Start: 1960 Yearly Adult Physical Yearly Adult P hysical [facility] End: 03-03-2025 XR Shoulder - right 2 Views [facility] Service Area Work Phone: Comment on above: Once for 1 Occurrenc es starting 03/03/2025 until 03/03/2025 Payers Date Payer Category Payer Self-pay 2024 [employer] Miguel Arthur ld Managed Care [facility] [id number] 2023 Unknown [id number] 2021 Unknown [id number] 1959 Unknown [id number]. 2.627 1959 Unknown [id number] [id number]. 2.627 1959 Unknown [id number] 2.16.840.1.307910.3.579. 2.651 1959 Unknown [id number] [id number]. 2.651 1959 Unknown [id number] 2.16.840.1.125622.3.579. 2.651 1959 Unknown [id number] [id number]. 2.651 1959 Unknown [id number] 2.16.840.1.647650.3.579. 2.651 1959 Unknown [id number] 2.16.840.1.127201.3.579. 2.651 Unknown [id number] 2.16.840.1.043080.3.579. 2.462 Unknown [id number] 2.16.840.1.339358.3.579. 2.462 Unknown [id number] 2.16.840.1.497655.3.579. 2.462 Unknown [id number] [id number]. 2.462 Unknown [id number] [id number]. 2.462 Social History Date Type Detail Facility Start: 07-24-2023 Tobacco smoking status Heavy tobacco smoker (finding) [facility] Start: 1960 Sex Assigned At Male [facility] Start: 10-29-2024 Tobacco smoking status NHIS Tobacco smoking consumption unknown [facility] Work Phone: Start: 1960 Sex assigned at Not on file [facility] Work Phone: Start: 02-15-2025 End: 05-12-2025 Gender identity Not on file [facility] Work Phone: Start: 10-19-2024 End: 12-09-2024 Exposure to SARS-CoV-2 (event) Not sure [facility] Start: 02-15-2025 Tobacco smoking status NHIS Smokes tobacco daily [facility] History of tobacco use Cigarette Smoker [facility] Work Phone: Start: 02-15-2025 Tobacco use and exposure Smokeless tobacco non-user [facility] Work Phone: Start: 02-15-2025 End: 05-12-2025 Alcoholic beverage intake Current drinker of alcohol (finding) [facility] Work Phone: Start: 02-15-2025 End: 05-12-2025 History of Social function [facility] Work Phone: Start: 02-15-2025 Alcohol Comment 1 beer a month [facility] Work Phone: Start: 10-11-2024 Sex Male [facility] Start: 03-25-2025 Gender identity Identifies as male gender (finding) [facility] Work Phone: Start: 03-25-2025 Sexual orientation Heterosexual (finding) [facility] Work Phone: Start: 10-11-2024 Sex Male (finding) [facility] Functional Status Date Assessment Result Facility 05-12-2025 Functional status [facility] Work Phone: 05-12-2025 [facility] Work Phone: 05-10-2025 Functional status [facility] 05-10-2025 [facility] Work Phone: 04-14-2025 Functional status [facility] Work Phone: 04-14-2025 [facility] Work Phone: 02-15-2025 Patient Health Questionnaire 2 item (PHQ-2) [Reported] [facility] Work Phone: 11-13-2023 Functional Status Door open, Room check performed [facility] 11-13-2023 Functional Status [facility] 11-12-2023 Functional Status [facility] 11-12-2023 Functional Status [facility] 11-12-2023 Functional Status [facility] 11-12-2023 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, 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, 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, Housework, Laundry, Personal ADL [facility] 11-12-2023 Functional Status None [facility] 11-12-2023 Functional Status Patient Identi fied Identification band [facility] 11-12-2023 Functional Status Maintained [facility] 11-05-2023 Functional Status Sensory Deficits None [facility] Work Phone: Mental Status Date Assessment Result Facility 11-13-2023 Mental Status Oriented x 4 [facility] 11-12-2023 Mental Status [facility] 11-12-2023 Mental Status [facility] 11-12-2023 Mental Status [facility] Clinical Notes 07-25-2023 to 05-12-2025 Assessment & Plan Note - Mercy Echols MD - 05/12/2025 9:25 AM ESTAssessment & Plan Note - Mercy Echols MD - 05/12/2025 9:25 AM Nanette Echols MD - 05/12/2025 9:00 AM ESTLaboratoryRadiology Note Date & Type Note Facility 05-12-2025 Evaluation + Plan note Associated Problem(s): Right shoulder pain Assessment: 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 He had an excellent lidocaine suppression test. Patient is diabetic and will be very fastidious about his sugars over the next 48 to 72 hours. Follow-up in 6 weeks for reevaluation. 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 Continue to do his home exercise program. 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 He had an excellent lidocaine suppression test. Patient is diabetic and will be very fastidious about his sugars over the next 48 to 72 hours. Follow-up in 6 weeks for reevaluation. 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 Continue to do his home exercise program. 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 He had an excellent lidocaine suppression test. Patient is diabetic and will be very fastidious about his sugars over the next 48 to 72 hours. Follow-up in 6 weeks for reevaluation. 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 Continue to do his home exercise program. Right shoulder physical therapy did not help. It actually hurt him. MRI to evaluate for rotator cuff tear and assessment of the health of the muscles. This is needed for surgical planning. Subjective Patient ID: Sivakumar Carlos is a 64 y.o. male. Chief Complaint: Follow-up and Pain of the Right Shoulder (X-rays 03-03-25 WITH SANDRA/Inj 10-29-24/Worse since PT/Pain scale: 10) Last Surgery: No surgery found Last Surgery [...] swings in the simulator with no problems. 05/12/2025-comes in today with the benefit of the injection having waned somewhat. OBJECTIVE: ORTHO EXAM Right shoulder: Inspection: Skin healthy to gross inspection No ecchymosis, no edema, no gross atrophy Palpation: Acromioclavicular joint minimal tenderness he does have palpable osteophytes consistent with his moderate AC joint arthritis Biceps tendon/ groove moderate tenderness Anterior Acromial Bursal Area moderate tenderness Cervical spine scant tenderness ROM: Forward Flexion 180 degrees active External Rotation 70 degrees at 90 degrees abduction Internal Rotation 70 degrees at 90 degrees abduction Strength: 4+/5 Supraspinatus isolation- resisted elevation 4+/5 Infraspinatus isolation- [...] performed using 8-13 MHz linear transducer with [email or web address] STUDY TYPE: 1. ULTRASOUND EXTREMITY INCLUDING [...] groove. L Inj/Asp: R subacromial bursa on 05/12/2025 9:27 AM Indications: pain Details: ultrasound-guided anterior approach Medications: 2.5 mg triamcinolone acetonide 40 mg/mL; 2 mL lidocaine 20 mg/mL (2 %); 4 mL ropivacaine 5 mg/mL (0.5 %) Procedure, treatment alternatives, risks and benefits explained, specific risks discussed. Immediately prior to procedure a time out was called to verify the correct patient, procedure, equipment, retail support specialist and site/side marked as required. Patient was prepped and draped in the usual sterile fashion. Orders Placed This Encounter Point of Care Ultrasound documented in this encounter [facility] Work Phone: 04-14-2025 History of Presen t illness Narrative Assessment/Plan Encounter Diagnoses: Chronic right shoulder pain No problem-specific Assessment & Plan notes found for this encounter. Right shoulder physical therapy did not help. It actually hurt him. MRI to evaluate for rotator cuff tear and assessment of the health of the muscles. This is needed for surgical planning. Subjective Patient ID: Sivakumar Carlos is a 64 y.o. male. Chief Complaint: Follow-up and Pain of the Right Shoulder (X-rays 03-03-25/Inj 10-29-24/Worse since PT/Pain scale: 10) Last Surgery: No surgery found Last Surgery [...] performed using 8-13 MHz linear transducer with [email or web address] STUDY TYPE: 1. ULTRASOUND EXTREMITY INCLUDING [...] of Care Ultrasound documented in this encounter [facility] Work Phone: 03-04-2025 History of Presen t illness Narrative No chief complaint on file. HPI: I was requested by Dr. Chavez to evaluate this patient in consultation for cardiac assessment. Mr. Sivakumar Carlos is a 64 y.o. year old current everyday smoker diabetic male patient with past medical history significant for CAD S/P CABG x3 (2014), hypertension, diabetes, hyperlipidemia, chronic shoulder / back pain on pain stimulator, coming for establishment of care. He is still pretty active and still works. 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 He complains of chronic shortness of breath on exertion, however that has remained stable. Denies chest pain, palpitations, leg edema, lightheadedness, headaches, bleeding, fever, chills, orthopnea, paroxysmal nocturnal dyspnea or syncope. 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 Past Medical History Medical History[1] Past Surgical History Surgical History[2] Past Family History Family History[3] Allergy History Allergies[4] Past Social History Social History[5] Tobacco Use History[6] Review of Systems: A total of 12 systems have been reviewed and are negative except for the aforementioned findings described in HPI. Objective Data: Last Recorded Vitals: There were no vitals filed for this visit. Last Labs: CBC - No results in last year. _ _ _ _ CMP - No results in last year. _ _ _ --- _ _ _ _ _ PTT - No results in last year. _ _ _ HGBA1C Date/Time Value Ref Range Status 10/16/2022 06:36 AM 8.5 4.3 - 5.6 % Final Comment: [place] [employer] guidelines indicate that patients with HgbA1c in the range 5.7-6.4% are at increased risk for development of diabetes, and intervention by lifestyle modification may be beneficial. HgbA1c greater or equal to 6.5% is considered diagnostic of diabetes. 04/16/2022 08:34 AM 7.2 4.3 - 5.6 % Final Comment: [place] [employer] guidelines indicate that patients with HgbA1c in the range 5.7-6.4% are at increased risk for development of diabetes, and intervention by lifestyle modification may be beneficial. HgbA1c greater or equal to 6.5% is considered diagnostic of diabetes. Patient Medications: Encounter Medications[7] Physical Exam: General: alert, oriented and in no acute distress HEENT: NC/AT; EOMI; PERRLA, external ear is normal Neck: supple; trachea midline; no masses; no JVD Chest: clear breath sounds bilaterally; no wheezing Cardio: regular rhythm, S1S2 normal, no murmurs; healing of chest scar with inflammation in metal suture's site Abdomen: Soft, non-tender, non-distension, no organomegaly Extremities: no clubbing/cyanosis/edema Neuro: Grossly intact Psychiatric: Normal mood and affect Past Cardiology Results (Last 3 Years): EKG: No results found for this or any previous visit from the past 1095 days. Echo: Echo Results: No results found for this or any previous visit from the past 365 days. Cath: No results found for this or any previous visit from the past 1095 days. CV NCDR CATHPCI V5 COLLECTION FORM Stress Test: No results found for this or any previous visit from the past 1095 days. Cardiac Imaging: No results found for this or any previous visit from the past 1095 days. Assessment/Plan Mr. Sivakumar Carlos is a 64 y.o. year old current everyday smoker diabetic male patient with past medical history significant for CAD S/P CABG x3 (2014), hypertension, diabetes, hyperlipidemia, chronic shoulder / back pain on pain stimulator, coming for establishment of care. He is still pretty active and still works. 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 He complains of chronic shortness of breath on exertion, however that has remained stable. Denies chest pain, palpitations, leg edema, lightheadedness, headaches, bleeding, fever, chills, orthopnea, paroxysmal nocturnal dyspnea or syncope. Assessment # Atherosclerosis / CAD S/P CABG x3 (2014) - Patient with known atherosclerotic disease, implying significant increased risk for major adverse cardiac events. 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 - We had a thorough conversation with the patient about the natural history of atherosclerosis and the importance for commitment with healthy lifestyle, including but not limited to healthy diet, regular exercises, avoid sedentary and compliance to medication. - Keep ASA, high intensity statin - will increase Rosuvastatin to 20mg daily, beta-fili - Metoprolol tartrate 25mg BID, ARB - Olmesartan 20mg daily. - Follow up yearly. # Hypertension - Controlled blood pressure. - Keep current medications including Olmesartan 20mg daily, Metoprolol tartrate 25mg BID. - Patient counseled to keep a healthy lifestyle including regular exercise and low-sodium diet. - Recommended home blood pressure monitoring. - Goal of BP < 130/80mmHg. # Diabetes - Controlled by PCP. - Counseled on healthy diet and regular exercises. - Discussed need for weight loss and the benefits. - Keep current medications including insulin, Metformin, Glimepiride. # Hyperlipidemia - Controlled by PCP. - Keep home medication with statins - will increase it to Rosuvastatin 20mg daily. - Counseled on healthy diet and regular exercise. # Smoking - We had a thorough conversation with the patient (~3min) addressing the hazard risks for smoking, including but not limited to heart attack, stroke and cancer. We have discussed the most common side effects of the prescribed medications, indications, drug interactions, risks, complications, and alternatives of medications/therapeutics were explained and discussed. The patient has been requested to monitor closely for any untoward side effects or complications of medications. The patient has been strongly advised to be compliant with the recommendations, all the questions and concerns have been addressed. The patient has been also instructed to call, to return sooner or to go to the emergency department if symptoms persist or get worsen. The patient voiced understanding and denies any further questions at this time. This note was transcribed using the [employer] Dictation system. There may be grammatical, punctuation, or verbiage errors that occur with voice recognition programs. Counseling greater than 50% of visit regarding all cardiac issues. Thank you, Dr. Chavez, for allowing me to participate in the care of this patient. Please do not hesitate to contact me with any further questions or concerns. Ebenezer Quintanilla MD Cardiology [1] No past medical history on file. [2] No past surgical history on file. [3] No family history on file. [4] Allergies Allergen Reactions Ozempic [Semaglutide] Nausea/vomiting Varenicline Nausea/vomiting [5] Social History Socioeconomic History Marital status: Tobacco Use Smoking status: Every Day Current packs/day: 1.00 Types: Cigarettes Smokeless tobacco: Never Vaping Use Vaping status: Never Used Substance and Sexual Activity Alcohol use: Yes Comment: 1 beer a month Drug use: Never [6] Social History Tobacco Use Smoking Status Every Day Current packs/day: 1.00 Types: Cigarettes Smokeless Tobacco Never [7] Outpatient Encounter Medications as of 03/04/2025 Medication Sig Dispense Refill acetaminophen (Tylenol Extra Strength) 500 mg tablet Take 3 tablets twice a day by oral route. aspirin 325 mg tablet Take 1 tablet (325 mg) by mouth once daily. (Patient taking differently: Take 81 mg by mouth once daily.) buPROPion XL (Wellbutrin XL) 150 mg 24 hr tablet Take 1 tablet (150 mg) by mouth once daily in the morning. Do not crush, chew, or split. 30 tablet 2 docusate sodium (Colace) 50 mg capsule Take 1 capsule (50 mg) by mouth if needed for constipation. glimepiride (Amaryl) 4 mg tablet Take 1 tablet (4 mg) by mouth early in the morning.. metFORMIN XR (Glucophage-XR) 750 mg 24 hr tablet TAKE ONE TABLET BY MOUTH TWICE DAILY FOR diabetes (Patient taking differently: Take 1,000 mg by mouth 2 times a day.) metoprolol tartrate (Lopressor) 25 mg tablet Take 1 tablet (25 mg) by mouth 2 times a day. olmesartan (BENIcar) 20 mg tablet Take 1 tablet (20 mg) by mouth once daily. 30 tablet 5 pregabalin (Lyrica) 300 mg capsule Take 1 capsule (300 mg) by mouth every 12 hours. rosuvastatin (Crestor) 10 mg tablet Rybelsus 3 mg tablet Take 1 tablet (3 mg) by mouth early in the morning.. 30 tablet 2 No facility-administered encounter medications on file as of 03/04/2025. documented in this encounter [facility] Work Phone: 03-03-2025 Evaluation + Plan note Associated Problem(s): Right shoulder pain Assessment: Right shoulder impingement syndrome with some partial tears of the rotator cuff supraspinatus Plan: MRI of shoulder- F/U once completed denied because of lack of physical therapy. Voltaren gel use as directed. Physical therapy range of motion and strengthening Codman's advance as tolerated. He will be compliant with the physical therapy and return for reevaluation. Follow-up in 6 weeks for reevaluation. [facility] Work Phone: 03-03-2025 Miscellaneous Notes Associated Problem(s): Right shoulder pain Assessment: Right shoulder impingement syndrome with some partial tears of the rotator cuff supraspinatus Plan: MRI of shoulder- F/U once completed denied because of lack of physical therapy. Voltaren gel use as directed. Physical therapy range of motion and strengthening Codman's advance as tolerated. He will be compliant with the physical therapy and return for reevaluation. Follow-up in 6 weeks for reevaluation. documented in this encounter [facility] Work Phone: 03-03-2025 History of Presen t illness Narrative Assessment/Plan Encounter Diagnoses: Right shoulder pain, unspecified chronicity Right shoulder pain Assessment: Right shoulder impingement syndrome with some partial tears of the rotator cuff supraspinatus Plan: MRI of shoulder- F/U once completed denied because of lack of physical therapy. Voltaren gel use as directed. Physical therapy range of motion and strengthening Codman's advance as tolerated. He will be compliant with the physical therapy and return for reevaluation. Follow-up in 6 weeks for reevaluation. Subjective Patient ID: Sivakumar Carlos is a 64 y.o. male. Chief Complaint: Follow-up and Pain of the Right Shoulder (X-rays 03-03-25/Inj 10-29-24/Did not do PT ) Last Surgery: No surgery found Last Surgery [...] performed using 8-13 MHz linear transducer with [email or web address] STUDY TYPE: 1. ULTRASOUND EXTREMITY INCLUDING [...] Placed This Encounter Point of Care Ultrasound Referral to Physical Therapy documented in this encounter [facility] Work Phone: 02-16-2025 Radiology Diagnostic study note [facility] Services [address] [place] [id number] Cerv Spine 2 or 3 Views MR#: [id number] Acct: [id number] Name: SIVAKUMAR CARLOS Rep #: [id number] : 1960 M 64 From: Jamie Kraft MD PCP: Dr. Georgette Chavez MD Status: REG CLI Study:Cerv Spine 2 or 3 Views Date of Exam: 02/15/25 Exam# [id number] Ordering Dr: Bahman Marina MD PROCEDURE: CERV SPINE 2 OR 3 VIEWS 02/15/2025 REASON FOR EXAM: R/O FX CERVICAL SPONDYLOSIS TECHNIQUE: CERV SPINE 2 OR 3 VIEWS FINDINGS: No evidence acute fracture or dislocation. Moderate degenerative changes of thespine. Normal alignment. RAD/Cerv Spine 2 or 3 Views IMPRESSION: Spondylosis. Reading Location: [id number] CC: Dr. Georgette Chavez MD; Dr. Bahman Marina MD ~ Assistant Professor Of Spanish: Signed [facility] 02-15-2025 History of Presen t illness Narrative Subjective Patient ID: Sivakumar Carlos is a 64 y.o. male who presents for Establish Care. 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 DM II dx 1989 3 weeks ago 8.1 Checks blood sugar once a day Last eye appt over 1 year ago No numbness but tingling in feet No ulcer on feet Gets pedicure 4 times per year HTN start olmesartan LBP [facility] Dr Francis partner No longer on norco and quit in september Pain stimulator CABG 3 bv 2014 Last seen cardiology Echo stress thallium [...] artery disease involving coronary bypass graft of [place] heart without angina pectoris - Referral to Cardiology; Future Georgette Chavez MD 02/15/25 3:59 PM documented in this encounter [facility] Work Phone: 02-15-2025 Instructions Georgette Chavez MD - 02/15/2025 3:40 PM EDT [...] resources for additional support: National tobacco quitline: 8-231-HURB-NOW ( ). SmokefreeTXT is a free text program to assist you in quitting. Visit https://www.smokefree.gov/smokef reetxt for more information. documented in this encounter [facility] Work Phone: 12-09-2024 Evaluation + Plan note Associated Problem(s): Right shoulder pain Assessment: Right shoulder impingement syndrome with some partial tears of the rotator cuff supraspinatus Plan: MRI of shoulder- F/U once completed Voltaren gel use as directed. Physical therapy range of motion and strengthening Codman's advance as tolerated. Follow-up in 6 weeks for reevaluation. [facility] Work Phone: 12-09-2024 Miscellaneous Notes Associated Problem(s): Right shoulder pain Assessment: Right shoulder impingement syndrome with some partial tears of the rotator cuff supraspinatus Plan: MRI of shoulder- F/U once completed Voltaren gel use as directed. Physical therapy range of motion and strengthening Codman's advance as tolerated. Follow-up in 6 weeks for reevaluation. documented in this encounter [facility] Work Phone: 12-09-2024 History of Presen t [...] 6 weeks for reevaluation. Subjective Patient ID: Sivakumar Carlos is a 64 y.o. male. Chief Complaint: [...] performed using 8-13 MHz linear transducer with [employer] STUDY TYPE: 1. ULTRASOUND EXTREMITY INCLUDING [...] of Care Ultrasound documented in this encounter [facility] Work Phone: 10-29-2024 Evaluation + Plan note [...] tolerated. Follow-up in 6 weeks for reevaluation. [facility] Work Phone: 10-29-2024 Miscellaneous Notes Associated Problem(s): [...] weeks for reevaluation. documented in this encounter [facility] Work Phone: 10-29-2024 History of Presen t [...] 6 weeks for reevaluation. Subjective Patient ID: Sivakumar Carlos is a 64 y.o. male. Chief Complaint: New Patient Visit of the Right Shoulder (X-RAYS 10-05-24/DOI END September/PAIN RATE 5) and New Patient Visit of the Neck (CERVICAL PAIN /X-RAYS 10-05-24/PAIN RATE 5/DOI END September) Last Surgery: No surgery found Last Surgery [...] performed using 8-13 MHz linear transducer with [employer] STUDY TYPE: 1. ULTRASOUND EXTREMITY INCLUDING [...] to verify the correct patient, procedure, equipment, retail support specialist and site/side marked as required. Patient was prepped and draped in the usual sterile fashion. Orders Placed This Encounter XR shoulder right 2+ views XR cervical spine 2-3 views Point of Care Ultrasound Referral to Physical Therapy documented in this encounter [facility] Work Phone: 10-06-2024 Note Discharge Instructio ns Discharge Summary [address] [place] [address] [id number] 10/05/2024 [id number] Sex: Male : 1960 Age: 63y Thank you for visiting [facility]. You have been evaluated today by Lul [...] days, dispense 15 tablet. Refills 0. Pharmacy: [facility] [place] [address]. Understanding of the discharge instructions verbalized by patient. Follow-up with: Jero Traore MD, [facility], Internal Medicine, Phone: [phone], [phone] of 4 Discharge Instructions [facility] [address], [place] [address]. Follow up in four days. Reason for referral: evaluation and treatment. Summary of care provided to patient. You have been given the following additional information: Shoulder Sprain Patient Signature Facility Party Plan Sales Unit Sales Leader Date/Time General Instructions with ExitWriter [facility] [address] [facility] [address] [id number] 10/05/2024 Patient: SIVAKUMAR CARLOS Sex: Male : 1960 Age: 63y Thank you for visiting [facility]. You have been evaluated today by Lul [...] days, dispense 15 tablet. Refills 0. Pharmacy: [facility] - [address] [place] [address]. Understanding of the discharge instructions verbalized by patient. Follow-up with: Jero Traore MD, [facility], Internal Medicine, Phone: [phone], [address] [place] [address]. Follow up in four days. Reason for [...] with (more content not included)... [facility] 11-13-2023 Hospital Discharg e instructions [...] and water are not available, use hand supervisor tank cleaning. ?Change your dressings as told by your [...] can be controlled with a remote. Take ftpk-kzg-uznrodt and prescription medicines only as told by [...] 08/06/2018 Document Revised: 10/14/2019 Document Reviewed: 08/06/2018 [employer] Patient Education 2019 [employer] 11/13/2023 10:26:04 Spinal Cord Stimulator Implantation Spinal [...] including vitamins, herbs, eye drops, creams, and yxln-agr-lgchjha medicines. Any problems you or family members [...] provider tells you to take them. ?Taking kwqt-ngj-jbdayyq medicines, vitamins, herbs, and supplements. General instructions [...] 08/06/2018 Document Revised: 10/14/2019 Document Reviewed: 08/06/2018 [employer] Patient Education 2020 [employer] Follow Up Care 10/31/2023 11:13:39 With:OLI COY DO, Orthopedic Address: [address] [place] [address], [address] [facility] [place] [address]- [phone] When:12/03/2023 14:45:00 Comments:This is your post-op appointment. Follow-up as scheduled. It is in the [facility] office. [facility] 11-13-2023 Note Discharge Instructions Thank you for allowing [facility] to assist you with your healthcare needs. The following is important discharge information regarding your hospital visit. Your Care Team Oli Coy DO Your Diagnosis Cardiomyopathy Diabetes mellitus [...] concerns Follow Up Appointments Follow Up with OLI COY DO, Orthopedic When 12/03/2023 02:45 PM EDT Why: This is your post-op appointment. Follow-up as scheduled. It is in the [facility] office. Where: [address] [place] [address], [address] [facility] [place] [address]- [phone] Allergies Chantix (vomiting) Medications Please ask your primary doctor or pharmacist before taking any other medication not listed, including over the counter drugs, herbal medications, vitamins and or supplements as they may interact with your home medications. What How Much When Why Instructions Last Dose Changed acetaminophen-hydrocodone (Alamo 325- 5 mg oral tablet) 1 tab(s) by mouth Every 6 hours as needed for for pain Lumbar spondylosis Duration: 7 Days Pickup at [facility] Unchanged capsaicin topical (Salonpas Gel-Patch) 2 [...] 0.25 Milligram Subcutaneous Every week Pharmacy Information [facility]: [address] [place], [place] [address] [phone] What How Much When Comments Stop Taking [...] SEET a MIN [place] fen and arlin wood KOE done) Verdrocet What is the most important [...] may report side effects to FDA at 6-803-IVJ-4722. What other drugs will affect acetaminophen and [...] affect acetaminophen and hydrocodone, including prescription and jcuk-gvq-mzvbulq medicines, vitamins, and herbal products. Not all [...] to ensure that the information provided by [employer]. ('[employer]') is accurate, up-to-date, and complete, but no guarantee is made to that effect. Drug information contained herein may be time sensitive. [employer] information has been compiled for use by healthcare practitioners and consumers in the [place] and therefore [employer] does not warrant that uses outside of the [place] are appropriate, unless specifically indicated otherwise. [employer] drug information does not endorse drugs, diagnose patients or recommend therapy. [employer] drug information is an informational resource designed [...] effective or appropriate for any given patient. [employer] does not assume any responsibility for any aspect of healthcare administered with the aid of information [employer] provides. The information contained herein is not intended to cover all possible uses, directions, precautions, warnings, drug interactions, allergic reactions, or adverse effects. If you have questions about the drugs you are taking, check with your doctor, nurse or pharmacist. Copyright 9635-4968 [employer]. Version: 19.02. Revision Date: 10/14/2023. Education Materials [...] and water are not available, use hand supervisor tank cleaning. ? Change your dressings as told by [...] can be controlled with a remote. Take exwb-mrm-ewrfslq and prescription medicines only as told by [...] Document Reviewed: 08/06/2018 Elsevier Patient Education 2020 [employer] Spinal Cord Stimulator Implant A spinal [...] including vitamins, herbs, eye drops, creams, and nmdn-sqh-eilhnhs medicines. Any problems you or family members [...] tells you to take them. ? Taking wxvq-jyo-bbbpoti medicines, vitamins, herbs, and supplements. General instructions [...] Document Reviewed: 08/06/2018 Elsevier Patient Education 2020 [employer] Additional Information VACCINATE! IT SAVES LIVES! Members of the community who have not yet received the COVID-19 vaccine and would like to receive it can visit one of [facility] vaccine clinics. There are many vaccine clinic locations within the [facility]. For locations and available times, please visit [email or web address].o hio.gov/. It is important to note that some COVID mobile vaccine clinics are held outdoors and may be canceled in rainy or stormy conditions. To learn more about pediatric vaccinations (ages 5-11), we invite you to visit the [facility] webpage. https://www.[email or web address].org/p ages/7768-Gorsz-Aftwedwiupr-Freq ytpevl-Fkjys-Ailcxlfrd.html To learn more about the COVID-19 vaccine, we invite you to visit the CDC website for a list of frequently asked questions.https://www.cdc.gov/co ronavirus/2019-ncov/vaccines/faq .html [employer] Patient Portal Access Instructions: Stay connected with your healthcare team and access your personal medical information anytime with the [employer] Patient Portal. Please follow the directions below to create your [employer] account: 1.Access the email account you provided upon registration to the hospital/physician office.2.Look for an invitation email from [facility].3.Open the email and access the invitation link: Accept Invitation to [employer].4.Fill in the required ravi to create your account. To access your account, visit [email or web address]. Click the blue button labeled Access Patient [...] you will allow to register on the [facility] Portal for access to your information. You can also access the [facility] Patient Portal on the [facility] dottie. Simply click on Patient Portal and then log into your account. If you would like to receive a full copy of your medical records, please contact the [facility] Medical Records Department by calling [phone], Friday through Friday between 8 a.m. and [...] Call your local pharmacy or go to [email or web address] to find one close to you.3.Make use of household items: Use cat litter or old coffee grounds to dispose medications if other options are not available. Mix your drugs with these household products, seal them in an airtight container and throw it into the garbage. Call [facility]: [phone] to be sure your drugs can be [...] been reviewed and explained to me and I,SIVAKUMAR CARLOS understand my current condition and have read and understand these discharge instructions. I have received a written copy of the plan/instructions. If I have questions, I am aware that I should contact my doctor. Patient/Party Plan Sales Unit Sales Leader Signature: Date/Time: Relationship to Patient: Witness Name/Signature: Date/Time: [facility] 11-12-2023 Note ORIGINAL Images acquired, not reported on this accession number. [facility] 11-12-2023 Anesthesiology Consult note Patient: SIVAKUMAR CARLOS Age: 63 years Sex: Male : 1960 Associated Diagnoses: None Author: MINNIE GARCIA APRN-WIC SITE COORDINATOR Preoperative Information Time of last food or [...] tab(s), Oral, qDay, 30 tab(s), 3 Refill(s) Alamo 325- 5 mg oral tablet: 1 tab(s), [...] Problem list: Medical Cardiomyopathy / SNOMED CT 109694740 / Confirmed Diabetes mellitus / SNOMED CT 919677568 / Confirmed Tobacco use / SNOMED CT 1223427802 / Confirmed Hyperlipidemia / SNOMED CT 08950902 / Confirmed, Active Problems (19) Arthropathy of [...] Paternal Grandfather Procedure history: Lumbar epidural injection ([id number]) on 10/10/2020 at 60 Years. Comments: 10/10/2020 9:08 Hayley Pro RN L4-L5 Fluoroscopy guided injection of bilateral facet joints of lumbar spine ([id number]) on 09/11/2020 at 59 Years. CABG x 3 - Coronary artery bypass grafts x 3 ([id number]) in 2015 at 53 Years. Placement of stent in cardiac conduit ([id number]) in 2001 at 41 Years. Comments: 09/07/2020 13:59 Hayley [facility] RN 2006 Cataract ([id number]). Comments: 09/07/2020 14:00 Hayley [facility] RN 2016, with insertion of prosthetic lens, bilateral Tonsillectomy ([id number]). SCS - Spinal cord stimulation ([id number]). Comments: 11/05/2023 10:14 EDT - Jocelyne Barlow RN trial Social History: Social & Psychosocial Habits Alcohol 11/12/2023 Use: Current Frequency: 1-2 times per month Substance Abuse 11/12/2023 Use: Never Tobacco 11/12/2023 Tobacco Use: 10 or more cigarettes (1/ Type: Cigarettes Number of years: 50 Home/Environment 11/12/2023 Living situation: Home/Independent Domestic Concerns None Primary Day Care Assistant: Self Current Home Treatments Blood Glucose monitoring [...] Signs(last 24 hrs) Last Charted Heart Rate Nhhinojgq87 bpm (NOVEMBER 11 07:45) SBP93 mmHg (NOVEMBER 11 07:45) DBP71 mmHg (NOVEMBER 11 07:45) Measurements from flowsheet : Measurements 11/12/2023 6:34 EDT Height 180.34 cm Admission Weight 82.27 kg [place] Body Weight 75.30 kg Admission Body Mass [...] br/min br/min 11/12/2023 7:43 EDT SN - HI - Medication MARCAINE BUPIVACAINE 0.25% 30ML SN - HI - Route of Administration Local SN - HI - By (Single) SN - HI - By (Single) 11/12/2023 7:41 EDT SN - XI - X-Ray Type C-Arm 11/12/2023 7:41 EDT SN - Assess - LOC Alert, Awake SN - Assess - Orientation Oriented X 3 SN - Assess - Post-op Skin Integrity Intact/Dry 11/12/2023 7:40 EDT SN - CAt - Case Attendee SN - CAt - Case Attendee SN - CAt - Role Performed Fire Protection Engineer 11/12/2023 7:40 EDT Heart Rate Monitored 79 [...] Surgeon SN - CAt - Role Performed WIC SITE COORDINATOR SN - CAt - Role Performed Bobbin Dumper 1 SN - CAt - Role Performed Scrub 1 SN - CAt - Role Performed Fishing Vessel Deckhand 1 SN - CAt - Role Performed X-Ray Tech SN - CAt - Role Performed Fire Protection Engineer 11/12/2023 7:15 EDT Patient Instructions Documentation Patient [...] Detail No Transport Mode Order Detail Ambulatory Melt Supervisor Details Form Melt Supervisor Details Form 11/12/2023 6:45 EDT Continuous IV Infusions LR Hand Left 11/12/2023 20 gauge Peripheral IV Activity: Insert new site Peripheral IV Site Condition: No complications Peripheral IV Number of Attempts: 1 Lactated Ringers Injection Begin Bag 1,000 mL mL 11/12/2023 6:34 EDT Blood Glucose, Capillary 148 mg/dL HI Height 180.34 cm Admission Weight 82.27 kg [place] Body Weight 75.30 kg Admission Body Mass [...] no difficulties Skin Temperature Warm Skin Description [place], Normal for ethnicity, Dry Skin Moisture General Dry IV Present Present Neurological Symptoms Patient denies Extremity Movement Equal Characteristics of Speech Clear Level of Consciousness Alert Strength All Extremities Strong Tone All Extremities Normal Sensation All Extremities Intact Affect/Behavior Appropriate Orientation Oriented x 4 Allergies Yes Anesthesia Extension Set Applied Yes 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 On Yes Consent Form Signed Yes Patient [...] STEWART MD Cardiac Clearance For Surgery By SWAPNA DOE APRN-STRUCTURAL SHOP HELPER 11/12/2023 6:20 EDT Designated Person #1 We May Share PHI Sandra Carlos [phone] Designated Person #1 Relationship Spouse Privacy Restrictions [...] No smoking after midnight, No jewelry, Responsible Alliance Party, Aware of surgery location, Pre-op education done, 1 bottle CHG wash with instructions given, Instructed to take ordered medications, SSI prevention handout given SN - Preprocedure Comments Spoke with patient, Verbalizes/Nonverbally indicates understanding, Other: Metoprolol Barriers to Learning None evident Teaching Method Explanation, Printed materials Preferred Spoken Language Kuwaiti Preferred Written Language Kuwaiti Teaching Evaluation No further teaching needed Safety Brochure Information Reviewed Unable to complete [facility] Video Viewed No Information Given by Patient [...] Room 11/12/2023 6:14 . Assessment and Plan [place] Society of Anesthesiologists (ASA) physical status classification: Class III. Anesthetic Preoperative Plan Premedication: intravenous. Anesthetic technique: General. Induction: intravenously. Maintenance airway: Oral endotracheal tube. Postoperative pain management: Per surgeon. Risks discussed: nausea, vomiting, sore throat. Informed consent: signed by patient. Digitally Signed by MINNIE GARCIA on 11/12/2023 07:[address] [facility] 11-12-2023 Note Date of Service 11/12/2023 Chief [...] planning, likely home tomorrow Digitally Signed by OLI COY DO on 11/13/2023 08:[address] [facility] 07-25-2023 Evaluation + Plan note Future Appointments Future Scheduled TestsLipid Profile 07/25/23Complete Metabolic Panel 07/25/23NM Myocardial Spect Rest/Stress 07/25/[address] [facility] 07-25-2023 Evaluation + Plan note Future Scheduled TestsLipid Profile 07/25/23Complete Metabolic Panel 07/25/23NM Myocardial Spect Rest/Stress 07/25/[address] [facility] Evaluation note Diagnosis Right shoulder pain, unspecified chronicity documented in this encounter [facility] Work Phone: Evaluation note* Diagnosis Right shoulder pain, unspecified chronicity Right shoulder pain, unspecified chronicity documented in this encounter [facility] Work Phone: Evaluation note* Diagnosis Right shoulder pain, unspecified chronicity Right shoulder pain, unspecified chronicity Nicotine dependence with current use- Primary Cigarette smoker Tobacco use disorder Primary hypertension Unspecified essential hypertension Type 2 diabetes mellitus with hyperglycemia, without long-term current use of insulin Major depressive disorder with single episode, in partial remission Coronary artery disease involving coronary bypass graft of [place] heart without angina pectoris documented in this encounter [facility] Work Phone: Evaluation noteNo assessment information available [facility] Work Phone: Evaluation note* Diagnosis Right shoulder pain, unspecified chronicity Right shoulder pain, unspecified chronicity Right shoulder pain, unspecified chronicity documented in this encounter [facility] Work Phone: Evaluation note* Diagnosis Right shoulder pain, unspecified chronicity Right shoulder pain, unspecified chronicity Right shoulder pain, unspecified chronicity Right shoulder pain, unspecified chronicity documented in this encounter [facility] Work Phone: Evaluation note* Diagnosis Right shoulder pain, unspecified chronicity Right shoulder pain, unspecified chronicity Right shoulder pain, unspecified chronicity Type 2 diabetes mellitus with other specified complication, with long-term current use of insulin- Primary Dizziness and giddiness Lightheadedness Dizziness and giddiness Hypertension, unspecified type Hyperlipidemia, unspecified hyperlipidemia type Cigarette nicotine dependence with nicotine-induced disorder Atherosclerosis History of coronary artery bypass graft x 3 documented in this encounter [facility] Work Phone: Evaluation note* Diagnosis Right shoulder pain, unspecified chronicity Right shoulder pain, unspecified chronicity Right shoulder pain, unspecified chronicity Cigarette smoker Tobacco use disorder documented in this encounter [facility] Work Phone: Evaluation note* Diagnosis Right shoulder pain, unspecified chronicity Right shoulder pain, unspecified chronicity Right shoulder pain, unspecified chronicity Chronic right shoulder pain Pain in joint, shoulder region documented in this encounter [facility] Work Phone: Evaluation note* Diagnosis Right shoulder pain, unspecified chronicity Right shoulder pain, unspecified chronicity Right shoulder pain, unspecified chronicity Chronic right shoulder pain Pain in joint, shoulder region Chronic right shoulder pain Pain in joint, shoulder region documented in this encounter [facility] Work Phone: Evaluation note* Diagnosis Right shoulder pain, unspecified chronicity Right shoulder pain, unspecified chronicity Right shoulder pain, unspecified chronicity Chronic right shoulder pain Pain in joint, shoulder region documented in this encounter [facility] Work Phone: Hospital course Narrative No data available for this section [facility] Hospital Discharge instructions No data available for this section [facility] Progress note No data available for this section [facility] Reason for referral (narrative)No reason for referral [facility]: Reason for visit Narrative* Imaging (Routine) - Authorized Specialty Diagnoses / Procedures Referred By Henrry frances Referred To Contact Radiology Diagnoses Right shoulder pain, unspecified chronicity Procedures XR shoulder right 2+ views Mercy Echols MD [address] [place] [address] Phone: tel: fax: Referral ID Status Reason Start Date Expiration Date Visits Requested Visits Authorized [id number] Authorized Perform Procedure 02/25/2025 03/28/2026 1 1 [facility] Work Phone: Reason for visit Narrative* Imaging (Routine) - Pending Review Specialty Diagnoses / Procedures Referred By Henrry frances Referred To Contact Radiology Diagnoses Cigarette smoker Procedures CT lung screening low dose Scott, Georgette L, MD [address] [facility], [place] [address] [place] [address] Phone: tel: fax: [address] [address] Phone: tel: fax: Referral ID Status Reason Start Date Expiration Date Visits Requested Visits Authorized [id number] Pending Review Perform Procedure 02/15/2025 03/18/2026 1 1 [facility] Work Phone: Reason for visit Narrative* Imaging (Routine) - Pending Review Specialty Diagnoses / Procedures Referred By Henrry frances Referred To Contact Radiology Diagnoses Chronic right shoulder pain Procedures MR shoulder right wo IV contrast Mercy Echols MD [address] [facility] [address] [place] [id number] Phone: tel: fax: [address] [address] Phone: tel: Referral ID Status Reason Start Date Expiration Date Visits Requested Visits Authorized [id number] Pending Review Perform Procedure 5 05/15/2026 1 1 [facility] Work Phone: Summary Purpose Family History No Family History [...] Directives Records FoundNo Advanced Directives Records Found Chief Complaint and Reason for Visit Chief Complaint Admit Date Cervical spondylosis February 15, 2025 9 :57am Additional Source Comments (unrecognized sect ion and content) No Status Records FoundNo Status Records FoundNo Status Records FoundNo Status Records FoundNo Status Records FoundNo Status Records Found INFORMATION SOURCE (unrecogn ized section and content) DATE CREATED AUTHOR 04/22/2020 [facility] DATE CREATED AUTHOR AUTHOR'S ORGANIZ ATION 07/29/2021 [facility] DATE CREATED AUTHOR AUTHOR'S ORGANIZ ATION 12/04/2023 [facility] DATE CREATED AUTHOR AUTHOR'S ORGANIZ ATION 04/20/2025 [facility] DATE CREATED AUTHOR AUTHOR'S ORGANIZ ATION 05/14/2025 [facility] DATE CREATED AUTHOR AUTHOR'S ORGANIZ ATION 05/18/2025 [facility] Patient Care team informatio n (unrecognized section and content) Cath Lab Radiological Technologist Relationship Specialty Start Date End Date Georgette Chavez MD [address] [facility], [place] [address] PCP - General Family Medicine 02/15/25 Team Status: Active Member Role/Relationship Status Dates Dr. Georgette Chavez MD Primary Care Provider Active Team Status: Inactive Member Role/Relationship Status Dates Dr. Georgette Chavez MD Primary Care Provider Active Start: February 15, 2025 End: February 15, 2025 Dr. Bahman Marina MD Attending Provider Active Start: February 15, 2025 End: February 15, 2025 Dr. Bahman Marina MD Referring Provider Active Start: February 15, 2025 End: February 15, 2025 Cath Lab Radiological Technologist Relationship Specialty Start Date End Date Georgette Chavez MD [address] [facility], [place] [address] PCP - General Family Medicine 02/15/25 Cath Lab Radiological Technologist Relationship Specialty Start Date End Date Georgette Chavez MD [address] [facility], [place] [address] PCP - General Family Medicine 02/15/25 Cath Lab Radiological Technologist Relationship Specialty Start Date End Date Georgette Chavez MD [address] [facility], [place] [id number] PCP - General Family Medicine 02/15/25 Cath Lab Radiological Technologist Relationship Specialty Start Date End Date Georgette Chavez MD [address] [facility], [place] [address] [place] [address] PCP - General Family Medicine 02/15/25 Cath Lab Radiological Technologist Relationship Specialty Start Date End Date Georgette Chavez MD [address] [facility], [place] [address] [place] [id number] PCP - General Family Medicine 02/15/25 Cath Lab Radiological Technologist Relationship Specialty Start Date End Date Georgette Chavez MD [address] [facility], [place] [address] [place] [phone] PCP - General Family Medicine 02/15/25 Cath Lab Radiological Technologist Relationship Specialty Start Date End Date Georgette Chavez MD [address] [facility], [place] [address] [place] [id number] PCP - General Family Medicine 02/15/25 Cath Lab Radiological Technologist Relationship Specialty Start Date End Date Georgette Chavez MD [address] [facility], [place] [address] [place], [id number] PCP - General Family Medicine 02/15/25 Cath Lab Radiological Technologist Relationship Specialty Start Date End Date Georgette Chavez MD [address] [facility], [place] [address] [place] [address] PCP - General Family Medicine 02/15/25 Cath Lab Radiological Technologist Relationship Specialty Start Date End Date Georgette Chavez MD [address] [facility], [place] [address] [place] [phone] PCP - General Family Medicine 02/15/25 Reason for Visit (unrecogniz ed section and content) Reason Comments New Patient Visit X-RAYS 10-05-24DOI END OF SEPTEMBERPAIN RATE 5 New Patient Visit CERVICAL PAIN X-RAYS 10-05-24PAIN RATE 5DOI END OF SEPTEMBER Reason Comments Follow-up Pain Reason Comments Establish Care Reason Comments Follow-up X-rays 03-03-25Inj Did not do PT Pain X-rays 03-03-25Inj Did not do PT Reason Comments New Patient Visit Specialty Diagnoses / Procedures Referred By Contjohan t Referred To Contact Cardiology Diagnoses Coronary artery disease involving coronary bypass graft of [place] heart without angina pectoris Georgette Chavez MD [address] [facility], [facility] [address] [place] [phone] Phone: tel: fax: Ebenezer Holliday MD [address] [place] [address], [facility] [address] [place] [phone] Phone: tel: fax: Referral ID Status Reason Start Date Expiration Date Visits Requested Visits Authorized [id number] Authorized Specialty Services Required 02/15/2025 02/15/2026 1 1 Reason Comments Follow-up X-rays 03-03-25Inj 4- 25-25Worse since PTPain scale: 10 Pain X-rays --25Inj 4- 25-25Worse since PTPain scale: 10 Reason Comments Follow-up X-rays 03-03-25 WITH JACKIEInj 3-12-12Urpww since PTPain scale: 10 Pain X-rays 03-03- WITH JACKIEInj 1-47-07Kuzos since PTPain scale: 10 Goals (unrecognized section and content) Goals may be documented in a n alternate section FOR RECORDS PERTAINING TO PATIENTS WHO ARE [...] BE BASED ON THE PRIMARY CLINICAL RECORDS. [employer] [facility]. provides no warranty or guarantee of the accuracy or completeness of information in this document.
[2025-06-21] MEDS: 0.9% Saline Lock 10 ML Syringe IV (21:00)
[2025-06-21] MEDS: Cefazolin 2 GM in 0.9% Normal Saline (100mL Bag) 100 ML IV (21:00)
[2025-06-21] MEDS: Senna/Docusate Sodium 1 Tablet 2 TABLET PO (21:03)
[2025-06-21] MEDS: Insulin Glargine-YFGN 100 UNIT/ML Pen 15 UNIT SC (21:15)
[2025-06-21] MEDS: HYDROcodone Bitartrate/Apap 5/325 Tablet PO (21:19)
[2025-06-22 01:05] VITALS: BP 113/76; PULSE 81; RESP 16; TEMP 36.8; O2SAT 95
--- NOTE | 2025-06-22 04:45 | RAD_ITS ---
PROCEDURE: CERV SPINE 2 OR 3 VIEWS 06/22/2025 REASON FOR EXAM: S/P CERVICAL FUSION TECHNIQUE: Procedure Code: RADSPCL Modality: DX Procedure: CERV SPINE 2 OR 3 VIEWS COMPARISON: 05/16/2025 FINDINGS: Newly applied anterior cervical spine fixation hardware from the level of C3 down to C6 with intervertebral cage. No hardware complication is noted. No gross vertebral instability. Multilevel facet arthropathy is noted. Straightened cervical lordosis suggesting muscle spasm. No gross soft tissue abnormalities. RAD/Cerv Spine 2 or 3 Views IMPRESSION: Newly applied anterior cervical ORIF changes from C3 down to C6 without hardwar e complication. Multilevel facet arthropathy. Straightened cervical curve suggesting muscle spasm. Reading Location: [facility]
[2025-06-22 05:15] VITALS: BP 123/74; PULSE 84; RESP 18; TEMP 36.6; O2SAT 94
[2025-06-22] MEDS: Cefazolin 2 GM in 0.9% Normal Saline (100mL Bag) 100 ML IV (05:21)
[2025-06-22 06:48] LABS: Hematocrit 43.8 % (40-54); Hemoglobin 14.9 g/dL (13.0-16.5); Immature Granulocytes Count 0.090 X10^3/uL (0.0-0.0); Mean Corp Hgb Conc 34.0 g/dL (32-36); Mean Corpuscular Volume 89.4 fL (80-94); Mean Platelet Vol. 12.2 fl (6.2-12.0); NRBC Flagged by Analyzer 0 % (0-5); Platelet Count 234 K/mm3 (150-450); RBC Distribution Width CV 13.5 % (11.6-14.6); RBC Distribution Width SD 44.2 fl (35.1-43.9); Red Blood Count 4.90 M/mm3 (4.6-6.2); White Blood Count 17.2 K/mm3 (4.4-11.0)
[2025-06-22 07:19] LABS: Anion Gap 13 (5-15); BUN 22 mg/dL (4-19); BUN/Creat Ratio 21.3 RATIO (10-20); Calcium,Total 9.0 mg/dL (7.6-11.0); Carbon Dioxide 22.4 mmol/L (21.0-32.0); Chloride 103 mmol/L (98-108); Estimated Creatinine Clearance 74.70 ml/min (50-250); Glucose 260 mg/dL (70-99); Potassium 4.1 mmol/L (3.3-5.1)
[2025-06-22 07:58] VITALS: BP 133/83; PULSE 83
[2025-06-22] MEDS: Senna/Docusate Sodium 1 Tablet 2 TABLET PO (08:00)
[2025-06-22] MEDS: HYDROcodone Bitartrate/Apap 5/325 Tablet PO (08:03)
--- NOTE | 2025-06-22 08:57 | PN_ITS ---
Subjective Subjective Patient seen and examined with his nurse by his bedside. He complained of pain at the surgical site of anterior neck. He had no other complaints. Review of systems is otherwise negative. Objective Data Objective Data Vital Signs: Vital Signs Temp Pulse Resp BP Pulse Ox O2 Del Method O2 Flow Rate 97.9 F 83 18 133/83 H 94 Room Air 2 06/22/25 05:15 06/22/25 07:58 06/22/25 05:15 06/22/25 07:58 06/22/25 05:15 06/22/25 05:15 06/21/25 18:30 Oxygen Flow Rate (L/min) 2 Oxygen Delivery Method Room Air Weight: 184 lb Body Mass Index (BMI) 25.7 Intake & Output: Intake and Output for Last 24 Hours 06/20/25 06/21/25 06/22/25 23:59 23:59 23:59 Intake Total 220.5 / 220.5 110 / 110 Output Total 30 / 30 Balance 190.5 / 190.5 110 / 110 Lab / Micro Data 06/22/25 06:21 06/22/25 06:21 Labs: Laboratory Results - last 24 hr 06/21/25 10:21: POC Glucose 189 H 06/21/25 16:03: POC Glucose 150 H 06/21/25 21:11: POC Glucose 352 H 06/22/25 06:21: WBC 17.2 H, RBC 4.90, Hgb 14.9, Hct 43.8, MCV 89.4, MCH 30.4, MCHC 34.0, RDW Std Deviation 44.2 H, RDW Coeff of Nika 13.5, Plt Count 234, MPV 12.2 H, Immature Gran % (Auto) 0.500, Neut % (Auto) 85.2 H, Lymph % (Auto) 9.5 L , Laurel % (Auto) 4.7, Eos % (Auto) 0.0, Baso % (Auto) 0.1, Absolute Neuts (auto) 14.6 H, Absolute Lymphs (auto) 1.64, Nucleated RBC % 0, Sodium 138, Potassium 4.1, Chloride 103, Carbon Dioxide 22.4, Anion Gap 13, BUN 22 H, Creatinine 1.05, Estim Creat Clear Calc 74.70, Est GFR (MDRD) Non-Af 79, BUN/Creatinine Ratio 21.3 H, Glucose 260 H, Calcium 9.0 Micro: Microbiology 06/17/25 15:40 Swab (Method) Nasal Screen MRSA/MSSA - Final Radiography Diagnostic Testing: Radiology Impression Cervical Spine X-Ray 06/22/25 04:45 IMPRESSION: Newly applied anterior cervical ORIF changes from C3 down to C6 without hardware complication. Multilevel facet arthropathy. Straightened cervical curve suggesting muscle spasm. Reading Location: [place] [address] Physical Exam Const alert, oriented x3 and no apparent distress General Appearance: cooperative HEENT normocephalic, head/scalp atraumatic and moist oral mucous membranes Eyes EOMs intact bilaterally Neck Neck Narrative: intact neck brace. Intact dressing over anterior cervical are Resp normal respiratory effort, normal air movement and clear to auscultation bilaterally Cardio regular rate, regular rhythm, S1 normal heart sound, S2 normal heart sound and no murmurs GI normal to inspection, nondistended, normoactive bowel sounds, soft to palpation and non-tender Extremity normal capillary refill, no clubbing, cyanosis or edema and no calf tenderness General Extremity: no tenderness to palpation of joints or extremities Skin General Skin Exam: no breakdown Neuro no focal motor deficits and no sensory deficits noted Motor Exam: strength 5/5 throughout Psych thought process normal, cooperative and affect normal Appearance: appropriate Assessment & Plan Assessment/Plan (1) Status post cervical spinal fusion: (2) Diabetes: PLAN: Plan #Cervical stenosis s/p anterior cervical fusion of C3-4 * today is POD 1 * management as per primary service spine surgery * PT/OT On board. Fall precautions * Incentive spirometry * #TYpe 2 diabetes mellitus * on lantus 10 units qhs. ISS. * on metformin and glimepiride * ISS. Accuchecks ACHS * also on tirzepatide * #Hyperlipidemia: on statin #History of CAD s/p CABG: on aspirin and statin. To resume statin when ok with spine surgery #Hypertension: on metoprolol #Nicotine dependence: counseled to quit. Nicotine patch prn DVT prophylaxis: as per primary service spine surgery Charges/Coding Visit Charges Inpatient E&M: 38470 Subs Hosp L2
[2025-06-22 11:00] VITALS: BP 133/83; PULSE 90; RESP 16; TEMP 36.7; O2SAT 94
[2025-06-22 11:02] VITALS: BP 133/83; PULSE 90; RESP 16; TEMP 36.7; O2SAT 94
--- NOTE | 2025-06-22 11:45 | CASEMGMT ---
Discharge Planning A list of?HH providers including quality and resource use data and consistent with the patient's preferred geographic region, medical needs, and insurance network was created in CarePort Guide.? This list was provided to the RN TRUNG. Silvana Lindsey, Discharge Planning Asst
--- NOTE | 2025-06-22 11:50 | PCM.PN.ORT ---
Subjective Subjective The patient is postop day 1 C3-6 fusion. Patient is doing well postoperatively with his pain well-controlled. The patient continues to have weakness which she was having prior to the surgery. This is most noticeable in the right bicep. The patient also continues to have some walking difficulty which she was also having prior to the surgery. The patient denies any dysphagia. Discussed discharge plans with the patient, patient wishes to go home. The patient was seen at the bedside this morning. PT/OT has seen the patient, they recommend rehab discharge however if the patient wishes for the home discharge. The surgical dressing did not need to be changed. Seen with Dr. Serra. Objective Data Objective Data Vital Signs: Vital Signs Temp Pulse Resp BP Pulse Ox O2 Del Method O2 Flow Rate 98.0 F 90 16 133/83 H 94 Room Air 2 06/22/25 11:02 06/22/25 11:02 06/22/25 11:02 06/22/25 11:02 06/22/25 11:02 06/22/25 11:02 06/21/25 18:30 Oxygen Flow Rate (L/min) 2 Oxygen Delivery Method Room Air Weight: 184 lb Body Mass Index (BMI) 25.7 Intake & Output: Intake and Output for Last 24 Hours 06/20/25 06/21/25 06/22/25 23:59 23:59 23:59 Intake Total 220.5 / 220.5 110 / 110 Output Total 30 / 30 Balance 190.5 / 190.5 110 / 110 Medical Nutrition Assessment Dietitian: Malnutrition Criteria Met Start: 06/22/25 11:36 Freq: Status: Active Protocol: Document 06/22/25 11:37 SB (Rec: 06/22/25 11:37 SB [id number]) Nutrition Malnutrition Evidence of Yes Malnutrition Exists Malnutrition (severe Acute Illness/Injury ): Evidenced By Suboptimal Energy Intake (Severe),Weight Loss (Moderate ) Clinical Problem Acute Disease or Injury Related Malnutrition Etiology severe related to to inadequate oral intake due to Mounjaro Signs/Symptoms as evidenced by PO intake meeting <50% of estimated nutrition needs and 8% weight loss x 1 month Status Active Problem Recommendation Dietitian Adjust to liberal regular diet due to acute Recommendations/ malnutrition. Changes Will discontinue 240mL ensure surgery TID with medpass, as pt refused ONS. Will monitor weight trends. Lab / Micro Data 06/22/25 06:21 06/22/25 06:21 Labs: Laboratory Results - last 24 hr 06/21/25 16:03: POC Glucose 150 H 06/21/25 21:11: POC Glucose 352 H 06/22/25 06:21: WBC 17.2 H, RBC 4.90, Hgb 14.9, Hct 43.8, MCV 89.4, MCH 30.4, MCHC 34.0, RDW Std Deviation 44.2 H, RDW Coeff of Nika 13.5, Plt Count 234, MPV 12.2 H, Immature Gran % (Auto) 0.500, Neut % (Auto) 85.2 H, Lymph % (Auto) 9.5 L, Kimble % (Auto) 4.7, Eos % (Auto) 0.0, Baso % (Auto) 0.1, Absolute Neuts (auto) 14.6 H, Absolute Lymphs (auto) 1.64, Nucleated RBC % 0, Sodium 138, Potassium 4.1, Chloride 103, Carbon Dioxide 22.4, Anion Gap 13, BUN 22 H, Creatinine 1.05, Estim Creat Clear Calc 74.70, Est GFR (MDRD) Non-Af 79, BUN/Creatinine Ratio 21.3 H, Glucose 260 H, Calcium 9.0 06/22/25 07:47: POC Glucose 256 H Micro: Microbiology 06/17/25 15:40 Swab (Method) Nasal Screen MRSA/MSSA - Final Radiography Diagnostic Testing: Radiology Impression Cervical Spine X-Ray 06/21/25 11:00 IMPRESSION: Fluoro was provided. Reading Location: [facility] Cervical Spine X-Ray 06/22/25 04:45 IMPRESSION: Newly applied anterior cervical ORIF changes from C3 down to C6 without hardware complication. Multilevel facet arthropathy. Straightened cervical curve suggesting muscle spasm. [facility] Physical Exam Narrative Neurological examination of the upper extremities shows grade 4+ of bilateral spray drier strength, grade 3 right bicep, grade 4 bilateral finger abduction. Normal sensation across all dermatomes. Abi drain removed. Tegaderm and gauze was applied over the incision. Patient cervical collar was reapplied properly. Const alert, oriented x3 and no apparent distress Assessment & Plan Assessment/Plan (1) Status post cervical spinal fusion: PLAN: Plan Postop day 1 C3-6 ACDF. Obtained reviewed x-rays today which show hardware and bone graft in good position. PT/OT recommend rehab discharge due to the patient's weakness and difficulty walking making it challenging for him to take care of himself, patient wishes for home discharge with family to help. Plan for home health/therapy for the patient. Home-going meds include [place], meloxicam, methocarbamol, acetaminophen. OARRS reviewed. Patient wishes for his medications to be sent to the [facility] in [place]. These have been sent. Reviewed restrictions and no bending, lifting, twisting. Reviewed and educated on the proper use and wear of the cervical collar. Reviewed and educated on the use of the incentive spirometer. Follow-up in the clinic in 2 weeks. Sooner if needed for any issues. Patient is in agreement to the plan.
--- NOTE | 2025-06-22 11:55 | DCINST_ITS ---
Discharge Instructions DC O2, CPAP, BIPAP needs Home O2 Discharge instructions: No Follow Up Care Test Results: Test results from this visit will be discussed in further detail at your follow- up appointment, if applicable. Discharge Plan Admission Admit Date/Time: 06/21/25 15:51 Attending Provider: Willi Serra Primary Care Provider: Thony Chavez Consulting Providers: Sloane Owens Instructions Patient Instructions: Cervical Fusion Dc Additional Instructions / Restrictions: Keep Tegaderm and gauze clean and dry. After 5 days remove the Tegaderm and gauze and cover incision with a Band-Aid. Replace Band-Aid daily thereafter. Wear cervical collar full-time for the first 2 weeks. Eat soft solid foods as needed for dysphagia. Sleep in a recliner to help with swelling. No bending, lifting, twisting. Follow-up in clinic in 2 weeks. Discharge Orders/Prescriptions Prescriptions: New acetaminophen 500 mg Tablet 500 mg PO Q8 Qty: 30 0RF hydrocodone-acetaminophen 5-325 mg Tablet 1 tab PO Q6H PRN (Reason: pain) 7 Days Qty: 28 0RF meloxicam 15 mg Tablet 15 mg PO DAILY Qty: 30 0RF Rx Instructions: Take once a day methocarbamol 500 mg Tablet 750 mg PO TID PRN (Reason: Pain/spasms) Qty: 30 0RF Continued docusate sodium 50 mg capsule 50 mg PO BID metformin 1,000 mg tablet 2,000 mg PO QDAY glimepiride 4 mg tablet 4 mg PO DAILY rosuvastatin 40 mg tablet 40 mg PO QHS metoprolol tartrate 25 mg tablet 25 mg PO BID pregabalin 300 mg capsule 300 mg PO BID insulin glargine [Lantus Solostar U-100 Insulin] 100 unit/mL (3 mL) insulin pen 10 unit subcut QHS PRN (Reason: DIABETES) Patient Comments: INJECT 10 UNITS SUBCUTANEOUSLY AT BEDTIME - IF morning fbg average is greater THAN 140 AFTER FIVE DAYS INCREASE DOSE by TWO UNITS TO A max of 20 UNITS / DAY Mounjaro 2.5 mg/0.5 mL pen injector 2.5 mg subcut TU Rx Instructions: for 4 weeks Held aspirin [Adult Aspirin Regimen] 81 mg tablet,delayed release (DR/EC) 81 mg PO DAILY Hold Instructions: Resume on 06/23/25. Discontinued acetaminophen [Tylenol] 325 mg tablet 325 mg PO Q6H PRN (Reason: pain) naproxen sodium [Aleve] 220 mg tablet 220 mg PO Q8H PRN (Reason: pain) celecoxib 100 mg capsule 100 mg PO BID PRN (Reason: pain) Referrals / Follow Up: Thony Chavez MD [Primary Care Provider, Family Practice] Disposition Disposition (needs filled in before D/C Order can be placed): Home, Self Care
--- NOTE | 2025-06-22 12:10 | CASEMGMT ---
Addendum entered by Nellie Eagle 06/22/25 15:38: [facility] has accepted pt for services. RN CM into pt room, pt and aware. They deny further needs. Original Note: RIVERA NINO Assessment: Face to Face with pt for initial transition planning/care coordination assessment. RN RTUNG introduced self and role at [facility], pt voices understanding and consents to assessment. Pt is A&O x4 and answers all questions appropriately at this time. Pt sitting up in chair in no distress with at bedside. Care providers, pharmacy, and demographics verified/updated. Admitting Dx: anterior cervical fusion Strata Score: 1 PCP:Scott Specialists:[facility]; Aleja, pain mgmt; Dwight, cardio Preferred Pharmacy: [facility] Insurance: MONIKA Bernal Prescription Benefit: yes LNOK: Matheus Carlos, Living Arrangements: Pt lives with in a single story home with no steps to enter. Pt reports prior to surgery, pt was I in ADL/IADLs and denies concerns at home. Pt is able to assist pt as needed. Transportation: Pt drives self and denies concerns with transportation. Pt will transport pt until he can drive again. DME:side rails on toilet, rollator, cane, man w/c, shower chair HHC/SNF: Denies hx of Pt states no concerns with going home at time of dc. Spoke with ortho who would like pt to have PT at home d/t therapy recs. Pt is agreeable to this. Provided pt with [facility] list created by dc reading assistant. Pt chose 1. [facility] 2. [facility] 3. [facility]. Requested dc reading assistant make referrals. Pt is in need of FWW, provided pt with a local verbal list of DME companies, pt chose [employer]. Provided pt with a FWW from [employer]. Pt signed consignment form, sent to [employer] with referral via careport. Pt states no further concerns/needs. CM to follow. Advised pt to ask CM if any further questions/concerns/needs arise, voices understanding. Pt Goal: Home with [facility] Plan: Home with [facility], provided FWW. Juan Francisco STAFFORD CM
--- NOTE | 2025-06-22 13:19 | CASEMGMT ---
Discharge Planning HH referral sent via [facility] to [facility]. Silvana Lindsey DC Planning Asst.
--- NOTE | 2025-06-22 13:59 | PHA.DC_ITS ---
Pharmacy [facility] Counseling Pharmacy Service has performed discharge medication reconciliation and counseling for this patient. 1. ACETAMINOPHEN 500MG PO Q8 2. NORCO 5/325MG PO Q6H PRN PAIN 3. MELOXICAM 15MG PO DAILY 4. METHOCARBAMOL 750MG PO TID PRN MUSCLE SPASMS/PAIN 5. STOP CELECOXIB AND ALEVE The patient's discharge medication list was reviewed for discrepancies and discrepancies were resolved. The patient was counseled on the following discharge medications and changes in medications for homegoing were reviewed. The Reason for Use, instructions for use, and potential side effects were reviewed for all new medications. The patient's questions regarding all of their medications were answered. The patient was able to verbally demonstrate an understanding of their discharge medications. Medications at Discharge Home Medications docusate sodium 50 mg capsule 50 mg PO BID 05/16/25 glimepiride 4 mg tablet 4 mg PO DAILY DIABETES 05/16/25 metformin 1,000 mg tablet 2,000 mg PO QDAY 05/16/25 metoprolol tartrate 25 mg tablet 25 mg PO BID 05/16/25 pregabalin 300 mg capsule 300 mg PO BID 05/16/25 rosuvastatin 40 mg tablet 40 mg PO QHS 05/16/25 aspirin 81 mg tablet,delayed release (Adult Aspirin Regimen) 81 mg PO DAILY 06/17/25 Held on 06/22/25. Instructions: Resume on 06/23/25. insulin glargine 100 unit/mL (3 mL) subcutaneous pen (Lantus Solostar U-100 Insulin) 10 unit subcut QHS PRN DIABETES 06/17/25 tirzepatide 2.5 mg/0.5 mL subcutaneous pen injector (Mounjaro) 2.5 mg subcut TU 06/17/25 acetaminophen 500 mg tablet 500 mg PO Q8 #30 tabs 06/22/25 hydrocodone-acetaminophen 5-325mg 5mg-325mg 1 tab PO Q6H PRN pain 7 days #28 tabs 06/22/25 meloxicam 15 mg tablet 15 mg PO DAILY #30 tabs 06/22/25 methocarbamol 500 mg tablet 750 mg (1.5 x 500 mg) PO TID PRN Pain/spasms #30 tabs 06/22/25
[2025-06-22] MEDS: 0.9% Saline Lock 10 ML Syringe IV (15:00)
--- NOTE | 2025-06-22 15:33 | CASEMGMT ---
Addendum entered by Silvana Lindsey 06/22/25 15:38: [facility] has accepted. [facility] asked to cancel referrals. RIVERA NINO updated. Original Note: Discharge Planning [facility] is short staffed so referral has not been reviewed yet. RIVERA NINO updated, Referral also sent to [facility] as pt has a discharge in. Silvana Lindsey DC Planning Asst.
[2025-06-22 15:34] VITALS: BP 134/75; PULSE 95; RESP 16; TEMP 37.1; O2SAT 91
--- NOTE | 2025-06-22 22:57 | POSTOPAN2_ITS ---
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 Spontaneous unlabored Yes 06/21/25 15:55 SWIMMING COACH.SKOBY respirations Mental status Awake,Calm 06/21/25 15:55 SWIMMING COACH.SKOBY nausea No 06/21/25 15:55 SWIMMING COACH.SKOBY Vomiting No 06/21/25 15:55 SWIMMING COACH.SKOBY Anesthesia Postop Eval I: Fluid Summary Crystalloid volume administer 1,500 06/21/25 15:55 SWIMMING COACH.SKOBY (ml) Colloids volume administered ( ml) Blood Product volume administered (ml) Total IV fluid infused 1,500 06/21/25 15:55 [email or web address].[email or web address] Anesthesia Postop Eval I: Summary Notes Anesthesia Complication No 06/21/25 15:55 [email or web address].[email or web address] Anesthesia Complication Comment: Post-operative progress note Anesthesia: Postop Eval II Evaluation Mental status: Awake and Calm Pain Level: 2 nausea: No Vomiting: No Complications Anesthesia Complication: No
--- NOTE | 2025-06-22 22:57 | PCM.POSTANE2 ---
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 Spontaneous unlabored Yes 06/21/25 15:55 TYPE CASTING MACHINE OPERATOR.SKOBY respirations Mental status Awake,Calm 06/21/25 15:55 TYPE CASTING MACHINE OPERATOR.SKOBY nausea No 06/21/25 15:55 TYPE CASTING MACHINE OPERATOR.SKOBY Vomiting No 06/21/25 15:55 TYPE CASTING MACHINE OPERATOR.SKOBY Anesthesia Postop Eval I: Fluid Summary Crystalloid volume administer 1,500 06/21/25 15:55 TYPE CASTING MACHINE OPERATOR.SKOBY (ml) Colloids volume administered ( ml) Blood Product volume administered (ml) Total IV fluid infused 1,500 06/21/25 15:55 TYPE CASTING MACHINE OPERATOR.SKOBY Anesthesia Postop Eval I: Summary Notes Anesthesia Complication No 06/21/25 15:55 TYPE CASTING MACHINE OPERATOR.SKOBY Anesthesia Complication Comment: Post-operative progress note Anesthesia: Postop Eval II Evaluation Mental status: Awake and Calm Pain Level: 2 nausea: No Vomiting: No Complications Anesthesia Complication: No
== END 2025-06-22 16:07 | disposition home health service (06) ==
LOC: SDC 16:54 → MS3 16:54
PROVIDERS: Anesthesiology; Student in an Organized Health Care Education/Training Program; Admitting Provider Orthopaedic Surgery Orthopaedic Surgery of the Spine; PCP Family Medicine; Referring Provider Orthopaedic Surgery Orthopaedic Surgery of the Spine; Visit Provider Orthopaedic Surgery Orthopaedic Surgery of the Spine
PROC: (CPT 22551; principal; 2025-06-21 11:30)
DX: M48.02 Spinal stenosis, cervical region (principal); G99.2 Myelopathy in diseases classified elsewhere; E11.9 Type 2 diabetes mellitus without complications; Z79.4 Long term (current) use of insulin; Z79.84 Long term (current) use of oral hypoglycemic drugs; F17.210 Nicotine dependence, cigarettes, uncomplicated; Z79.82 Long term (current) use of aspirin; E78.00 Pure hypercholesterolemia, unspecified; M50.01 Cervical disc disorder with myelopathy, high cervical region; R26.81 Unsteadiness on feet; Z79.899 Other long term (current) drug therapy
CPT/HCPCS: 22551; 22552 ×2; 22845; 20931; 00670; 96366; 36415; 72040; 76000; 80048; 82962; 83036; 83735; 85025; 86850; 86900; 86901; 87081; 94668; 96365; 96375; 96376; 97162; 97802; 99221; 99406; C1713; A4216; G0378; J2405